=== PATIENT | female | born 1945 | race Caucasian/White ===

== ENCOUNTER → 2016-09-13 | Outpatient (CLI) | payer MEDICARE ==
[~2016-09-13] VITALS: Ht 172.7 cm; Wt 110.3 kg
[~2016-09-13] MED LIST: ALBU8.5H4 IH; AMLO5TAB2 GT; AMLO5TAB2 PO; ASP325TEC PO; ASP81TEC PO; CCLB10TRX PO; CHOL500019 PO; EZET10TA5 PO; FLC1T PO; FOLI1TAB24 PO; FOLIC ACID PO; GLUC-113 PO; GUAI600T43 PO; HYDR-34 PO; HYDR-3714 PO; HYDR-3812 PO; HYDR118S10 PO; HYDR200T46 PO; LEVO750T39 PO; LORA10TA7 PO; METH2.5T PO; MTP25TSR PO; MTX2.5T PO; MULT-116 PO; OMEG1CAP51 PO; OSTEO BIFLEX PO; PRED10TA22 PO; TRIA1CAP4 PO; VIT D PO; WARF-48 PO; WARF5TAB6 PO; WRF10T PO; WRF5T PO; ZOLEDRONATE 5 MG/100 ML (RECLAST) BTL IV ONE
[2016-09-13 14:30] VITALS: BP 133/71
== END ==
LOC: SDC 13:09
PROVIDERS: ATTEND Internal Medicine
DX: M81.0 Age-related osteoporosis without current pathological fracture (principal)
CPT/HCPCS: 96365

== ENCOUNTER → 2017-01-05 | Outpatient (CLI) | payer MEDICARE ==
[~2017-01-05] MED LIST changes: -MULT-116 PO; +MULT-324 PO; -ZOLEDRONATE 5 MG/100 ML (RECLAST) BTL IV ONE
--- NOTE | 2017-01-05 11:36 | Diagnostic Imaging Report ---
PROCEDURE: CT pelvis without contrast. TECHNIQUE: Multiple contiguous axial images were obtained through the pelvis without the use of intravenous contrast. Sagittal and coronal reformations were performed. INDICATION: Trauma. Possible fracture. FINDINGS: There is subacute nondisplaced fracture involving the right pubic body near its junction with the superior and inferior rami without displacement. There is no femoral head or neck fracture. There is no subluxation or dislocation at the hip joints. A degenerative changes at L5/S1 and at the SI joints is noted. There is also degenerative change at the pubic symphysis. There is a tiny fat-containing umbilical hernia seen. Hysterectomy changes are seen in the pelvis. IMPRESSION: There is a subacute nondisplaced right pubic body fracture. Dictated by: Dictated on workstation # [id number]
== END ==
LOC: RAD 10:33
PROVIDERS: ATTEND Internal Medicine
DX: S32.591A Other specified fracture of right pubis, initial encounter for closed fracture (principal); X58.XXXA Exposure to other specified factors, initial encounter; Y99.8 Other external cause status
CPT/HCPCS: 72192

== ENCOUNTER → 2017-09-08 | Outpatient (CLI) | payer MEDICARE ==
[~2017-09-08] MED LIST changes: +ACHD5005 PO; -HYDR-3812 PO
--- NOTE | 2017-09-08 16:31 | Diagnostic Imaging Report ---
EXAM: DEXA scan INDICATION: Screening for osteoporosis COMPARISON: This study was compared to the prior exam of 12/05/2014. The bone mineral density of the hips and spine was measured. The T score for the spine is 1.1. On the prior exam the T score was 0.5. The T score for the right femur is -1.8 and for the left femur -2.7. On the prior exam the respective scores were -2.0 and -2.6. IMPRESSION: There are mixed results. There has been an increase in the bone mineral density of the spine and the right hip but there has been a slight decrease in the bone mineral density of the left hip. The T score for the spine is within normal limits while the T score for the right hip indicates osteopenia. There is osteoporosis of the left hip. Dictated by: Dictated on workstation # [id number]
== END ==
LOC: RAD 10:50
PROVIDERS: ATTEND Internal Medicine
DX: Z13.820 Encounter for screening for osteoporosis (principal); M81.0 Age-related osteoporosis without current pathological fracture
CPT/HCPCS: 77080

== ENCOUNTER 2017-09-19 12:16 | Outpatient (CLI) | payer MEDICARE ==
[~2017-09-19] VITALS: Ht 172.7 cm; Wt 110.3 kg
[2017-09-19] MEDS ORDERED: ZOLEDRONATE 5 MG/100 ML (RECLAST) BTL IV ONE (12:45)
[2017-09-19 13:20] VITALS: BP 139/71
== END 2017-09-19 13:20 | disposition home or self-care (01) ==
LOC: SDC 12:16
PROVIDERS: ATTEND Internal Medicine
DX: M81.0 Age-related osteoporosis without current pathological fracture (principal)
CPT/HCPCS: 96365

== ENCOUNTER 2018-10-27 13:08 | Outpatient (CLI) | payer MEDICARE ==
[~2018-10-27] VITALS: Ht 172.7 cm; Wt 110.3 kg
[~2018-10-27 13:08] MED LIST changes: +AMLO5TAB9 PO; -METH2.5T PO; -MULT-324 PO; +MULT-834 PO
[2018-10-27] MEDS ORDERED: ZOLEDRONATE (NON-FORMULARY) 100 ML IV ONE (13:30)
[2018-10-27 13:35] VITALS: BP 135/60
== END 2018-10-27 14:10 | disposition home or self-care (01) ==
LOC: SDC 13:08
PROVIDERS: ATTEND Internal Medicine
DX: M81.0 Age-related osteoporosis without current pathological fracture (principal)
CPT/HCPCS: 96365

== ENCOUNTER 2019-10-15 15:54 | Emergency (ER) | payer MEDICARE ==
[~2019-10-15] VITALS: Ht 172.7 cm; Wt 113.4 kg
--- NOTE | 2019-10-15 16:09 | ED Fall/Injury ---
General Stated Complaint: FALL Source: patient History of Present Illness Date Seen by Provider: Oct 15, 2019 Time Seen by Provider: 15:59 Initial Comments PT ARRIVES VIA EMS FROM HOME IN [facility] PT STATES SHE STARTED TO SIT DOWN IN HER WHEELCHAIR AND THE CHAIR SLIPPED AND SHE LANDED ON THE FLOOR, TRIED TO CATCH HERSELF WITH HER OUTSTRETCHED HANDS AND INJURED HER LEFT WRIST THIS OCCURRED AT 1500 STATES HER RIGHT HIP WAS ALSO HURTING, BUT ON EMS ARRIVAL AT THE SCENE, HIP WAS NO LONGER HURTING AND PT WAS ABLE TO STAND ON HER OWN WITHOUT DIFFICULTY DID NOT HIT HEAD AND NO LOSS OF CONSCIOUSNESS NO NECK OR BACK PAIN NO PARESTHESIAS OR MOTOR DEFICITS EMS GAVE FENTANYL 50 MCG EN ROUTE, WITH MUCH IMPROVEMENT IN PAIN PT IS RIGHT HANDED NO PRIOR INJURIES TO THIS HAND/WRIST/ARM PT STATES A FEW YEARS AGO SHE INJURED HER BACK AND BROKE 4 VERTEBRAE AND HAS HAD DIFFICULTY WALKING ANY DISTANCE OR STANDING FOR ANY LENGTH OF TIME, SO USES A WHEELCHAIR AT TIMES. PT IS ON COUMADIN--PT NOT SURE WHY, BUT POSSIBLY FOR PERIPHERAL VASCULAR DISEASE ? PCP: ORTHOPEDIC SURGEON: DR. LUIS--HAS HAD BILATERAL CARPAL TUNNEL SURGERY AND IS S EEING HIM FOR HER CHRONIC KNEE PAIN Allergies and Home Medications Allergies Coded Allergies: Penicillins (Verified Allergy, Unknown, 03/23/13) Ewjlwdy-Hcm-Hli Reductase Inhibitor (Verified Allergy, Unknown, 03/23/13) JOINT PAIN clopidogrel bisulfate (Verified Allergy, Unknown, 03/23/13) codeine (Verified Allergy, Unknown, 09/14/11) diazepam (Unverified Allergy, Unknown, 01/13/15) monosodium glutamate (Unverified Allergy, Unknown, 01/15/15) FROM UNCODED ALLERGIES morphine (Verified Allergy, Unknown, 09/14/11) Home Medications Albuterol Sulfate 8.5 Gm Hfa.aer.ad, 8.5 GM IH Q4H Prescribed by: TALITA FRANZ on 01/17/15 0842 Amlodipine Besylate 5 Mg Tablet, 5 MG PO DAILY, (Reported) Aspirin 81 Mg Tabec, 81 MG PO DAILY, (Reported) Cholecalciferol (Vitamin D3) 50,000 Unit Capsule, 50,000 UNIT PO WEEKLY, (Reported) Folic Acid 1 Mg Tablet, 1 MG PO DAILY, (Reported) Gluc 2KCL/Chondr/Villa Hy/Hy Ac 1 Each Capsule, 1 CAP PO DAILY, (Reported) Guaifenesin 600 Mg Tab.er.12h, 600 MG PO BID Prescribed by: TALITA FRANZ on 01/17/15841 Hydrocodone Bit/Acetaminophen 1 Each Tablet, 1 TAB PO Q6H PRN for PAIN, (Reported) Hydroxychloroquine Sulfate 200 Mg Tablet, 200 MG PO BID, (Reported) Levofloxacin 750 Mg Tablet, 750 MG PO DAILY@11 Prescribed by: TALITA FRANZ on 01/17/15841 Loratadine 10 Mg Tablet, 10 MG PO DAILY, (Reported) Multivitamin 1 Each Tablet, 1 TAB PO DAILY, (Reported) [place]-3 Fatty Acids/Fish Oil 1 Each Capsule, 1 CAP PO BID, (Reported) Prednisone 10 Mg Tab.ds.pk, 10 MG PO UD Prescribed by: TALITA FRANZ on 01/17/15841 Triamterene/Hydrochlorothiazid 1 Each Capsule, 1 TAB PO DAILY, (Reported) Patient Home Medication List Home Medication List Reviewed: Yes Review of Systems Review of Systems Constitutional: no symptoms reported Respiratory: no symptoms reported Cardiovascular: no symptoms reported Gastrointestinal: no symptoms reported Genitourinary: no symptoms reported Musculoskeletal: see HPI Skin: no symptoms reported Psychiatric/Neurological: No Symptoms Reported Past Wzxrcuy-Purcqj-Xisrpy Hx Past Med/Social Hx: Reviewed and Corrections made Patient Social History Recent Foreign Travel: No Contact w/Someone Who Travel: No Recent Hopitalizations: No Immunizations Up To Date Tetanus Booster (TDap): Less than 5yrs PED Vaccines UTD: No Date of Pneumonia Vaccine: Jan 09, 2013 Past Medical History Surgeries: Yes (TOE AMPTUATION;BILATERAL CARPAL TUNNEL) Amputation, Gallbladder, Hysterectomy, Orthopedic, Tonsillectomy Respiratory: Yes Asthma, COPD Currently Using CPAP: No Currently Using BIPAP: No Cardiac: Yes High Cholesterol, Hypertension, Peripheral Vascular Neurological: No Reproductive Disorders: No Female Reproductive Disorders: Denies Sexually Transmitted Disease: No HIV/AIDS: No Genitourinary: No Gastrointestinal: Yes Gall Bladder Disease Musculoskeletal: Yes (TOE AMPUTATION; 4 VERTEBRAL FX'S-NO SURGERY;BILAT CARPAL TUNNEL; KNEE PAIN ) Osteoporosis, Arthritis, Fibromyalgia, Back Injury, Chronic Back Pain, Fractures Endocrine: Yes (MORBID OBESITY) Loss of Vision: Denies Hearing Impairment: Denies Adverse Reaction/Blood Tranf: No Family Medical History Arthritis 19 FATHER 19 MOTHER G8 BROTHER G8 BROTHER G8 BROTHER G8 BROTHER G8 BROTHER G8 SISTER G8 SISTER Bone cancer G8 BROTHER Cardiovascular disease 19 FATHER G8 BROTHER G8 BROTHER G8 BROTHER G8 BROTHER G8 BROTHER Diabetes mellitus G8 BROTHER Hypertension 19 FATHER 19 MOTHER G8 BROTHER G8 BROTHER G8 BROTHER G8 BROTHER G8 BROTHER G8 SISTER G8 SISTER Myocardial infarction G8 BROTHER G8 BROTHER Physical Exam Vital Signs Vital Signs - First Documented 10/15/19 16:00 Temp 36.7 Pulse 82 Resp 18 B/P (MAP) 117/76 (90) Pulse Ox 96 O2 Delivery Nasal Cannula O2 Flow Rate 2.00 Capillary Refill : Height, Weight, BMI Height: 5'8.00" Weight: 243lbs. 2.0oz. [id number]; 37.0 BMI Method:Stated General Appearance: no apparent distress, obese, other (SMILING, LAUGHING, TALK ING NON-STOP ABOUT VARIOUS THINGS, AND NOT TALKING AT ALL ABOUT HER INJURY OR PAIN ) HEENT: PERRL/EOMI Neck: non-tender Cardiovascular: normal peripheral pulses, regular rate, rhythm, no murmur Respiratory: normal breath sounds Gastrointestinal: soft Back: no CVA tenderness, no vertebral tenderness Extremities: normal capillary refill, other (LEFT WRIST TENDERNESS, SWELLING AND DEFORMITY; DISTAL MOTOR/SENSORY/VASCULAR INTACT. ) Neurologic/Psychiatric: no motor/sensory deficits, alert, normal mood/affect, oriented x 3 Skin: normal color, warm/dry Procedures/Interventions Splinting and Joint Reduction : Pre-Proc Neuro Vasc Exam: normal Post-Proc Neuro Vasc Exam: normal Arm Sling: [place] Hand-Made Type: orthoglass Splint Application: Short Arm Progress/Results/Core Measures Results/Orders Lab Results Laboratory Tests Test 10/15/19 16:15 Range/Units White Blood Count 8.0 4.3-11.0 10^3/uL Red Blood Count 3.93 L 4.35-5.85 10^6/uL Hemoglobin 12.5 11.5-16.0 G/DL Hematocrit 40 35-52 % Mean Corpuscular Volume 101 H 80-99 FL Mean Corpuscular Hemoglobin 32 25-34 PG Mean Corpuscular Hemoglobin Concent 32 32-36 G/DL Red Cell Distribution Width 15.1 H 10.0-14.5 % Platelet Count 221 130-400 10^3/uL Mean Platelet Volume 10.1 7.4-10.4 FL Neutrophils (%) (Auto) 70 42-75 % Lymphocytes (%) (Auto) 16 12-44 % Monocytes (%) (Auto) 10 0-12 % Eosinophils (%) (Auto) 4 0-10 % Basophils (%) (Auto) 0 0-10 % Neutrophils # (Auto) 5.6 1.8-7.8 X 10^3 Lymphocytes # (Auto) 1.2 1.0-4.0 X 10^3 Monocytes # (Auto) 0.8 0.0-1.0 X 10^3 Eosinophils # (Auto) 0.3 0.0-0.3 10^3/uL Basophils # (Auto) 0.0 0.0-0.1 10^3/uL Prothrombin Time 34.1 H 12.2-14.7 SEC INR Comment 3.3 H 0.8-1.4 Activated Partial Thromboplast Time 34 24-35 SEC Sodium Level 138 135-145 MMOL/L Potassium Level 4.2 3.6-5.0 MMOL/L Chloride Level 105 98-107 MMOL/L Carbon Dioxide Level 25 21-32 MMOL/L Anion Gap 8 5-14 MMOL/L Blood Urea Nitrogen 22 H 7-18 MG/DL Creatinine 1.05 0.60-1.30 MG/DL Estimat Glomerular Filtration Rate 51 BUN/Creatinine Ratio 21 Glucose Level 123 H 70-105 MG/DL Calcium Level 9.1 8.5-10.1 MG/DL Corrected Calcium 9.4 8.5-10.1 MG/DL Total Bilirubin 0.4 0.1-1.0 MG/DL Aspartate Amino Transf (AST/SGOT) 20 5-34 U/L Alanine Aminotransferase (ALT/SGPT) 23 0-55 U/L Alkaline Phosphatase 54 40-136 U/L Total Protein 6.2 L 6.4-8.2 GM/DL Albumin 3.6 3.2-4.5 GM/DL My Orders Orders - JORJE BENÍTEZ DO Ed Iv/Invasive Line Start (10/15/19 16:06) Monitor-Rhythm Ecg Trace Only (10/15/19 16:06) Forearm, Left, 2 Views (7/6/20 16:06) Wrist, Left, 3 Views Or More (10/15/19 16:06) Pelvis With Right Hip 2-3views (10/15/19 16:06) Cbc With Automated Diff (10/15/19 16:06) Comprehensive Metabolic Panel (10/15/19 16:06) Protime With Inr (10/15/19 16:06) Partial Thromboplastin Time (10/15/19 16:06) Fentanyl Injection (Sublimaze Injection (10/15/19 16:57) Ed Ortho/Other Supplies Order (10/15/19 17:11) Ed Iv/Invasive Line Start (10/15/19 18:10) Ns Iv 1000 Ml (Sodium Chloride 0.9%) (10/15/19 18:10) Fentanyl Injection (Sublimaze Injection (10/15/19 18:10) Hydromorphone Injection (Dilaudid Inject (10/15/19 20:08) Medications Given in ED Current Medications Medications Dose Ordered Sig/Sandro Route Start Time Stop Time Status Last Admin Dose Admin Hydromorphone HCl 2 mg STK-MED ONCE .ROUTE 10/15/19 20:08 10/15/19 20:11 DC 10/15/19 20:18 2 MG Vital Signs/I&O 10/15/19 10/15/19 16:00 20:19 Temp 36.7 Pulse 82 80 Resp 18 18 B/P (MAP) 117/76 (90) 142/68 Pulse Ox 96 95 O2 Delivery Nasal Cannula Room Air O2 Flow Rate 2.00 10/16/19 00:00 Intake Total 1000 ml Balance 1000 ml Progress Progress Note : Progress Note PAIN MUCH IMPROVED WITH FENTANYL Diagnostic Imaging Comments XRAYS LEFT WRIST AND FOREARM-- FINDINGS: There is a markedly comminuted intra-articular fracture of the distal left radius with posterior and lateral displacement of the principle fragments. There appears to be a bone gap of the articular surface measuring up to 6 mm in width. There is mild impaction, and moderate dorsal angulation. There is also a mildly impacted, comminuted fracture of the distal left ulna, with small avulsion fragments noted as well. The ulnar fracture demonstrates dorsal displacement and angulation. There is moderate lateral subluxation of the carpus relative to the radius and ulna. There are severe end-stage degenerative changes at the basal joints of the thumb with a large chronic joint body seen radial to the first carpometacarpal joint. This measures 1.4 cm in diameter. There is diffuse osteopenia. There is marked surrounding soft tissue edema. IMPRESSION: 1. Comminuted, displaced, angulated intra-articular fractures of the distal left radius and ulna. 2. Severe degenerative changes at the basal joints of the thumb. XRAYS PELVIS AND LEFT HIP--NO ACUTE BONY INJURY PER RADIOLOGIST REPORTS AT 1740 Reviewed: Reviewed by Me Departure Communication (Admissions) Family Conversation 1814--SPOKE WITH PT'S DAUGHTER AND UPDATED HER ON PT'S CONDITION, WILL CALL HER BACK WITH DETAILS ON TRANSPORTATION HAS BEEN ARRANGED 1656--CALLED DR. LUIS, MESSAGE LEFT ON CELL 1703--SPOKE WITH DR. LUIS, HE HAS REVIEWED PT'S XRAYS AND ADVISES TO SEND TO HAND SURGEON DUE TO COMPLEXITY OF THE INJURY 1706--CALLED [facility] HAND SURGEON, DR. SUAZO. CLOUDING IMAGES TO RIZZO 1709--SPOKE WITH DR. SUAZO. WOULD LIKE PICTURES OF XRAYS TEXTED TO HIM AND HE WILL CALL ME BACK 1721--SPOKE WITH DR. SUAZO, HE ADVISES THAT PT NEEDS TO GO TO , DUE TO COMPLEXITY OF THE INJURY. 1724--CALLED . IMAGES HAVE BEEN CLOUDED TO . THEY WILL CONTACT HAND SURGEON AND WILL CALL ME BACK AFTER HE HAS REVIEWED THE IMAGES. 1805--RONALDO CALLED BACK. DR. PENNY, ORTHOPEDIC SURGEON, HAS REVIEWED FILMS AND WOULD LIKE PT TO BE TRANSFERRED TO ER [facility]. 1809--[facility] HAS BEEN DISPATCHED FOR TRANSFER. NOT AVAILABLE UNTIL SOMETIME AFTER MIDNIGHT. OTHER LOCAL EMS SERVICES BEING CONTACTED AT THIS TIME 1830--[facility] WILL BE ABLE TO TRANSPORT PT AND WILL BE HERE SHORTLY. Impression Primary Impression: S/P FALL FROM STANDING Additional Impressions: COMMINUTED DISPLACED LEFT RADIUS AND ULNAR FRACTURES Contusion of right hip Disposition: XFER SHT-TRM HOSP Condition: Improved Transfer Transfer Reason: Exceeds level of care Transfer Facility: Method of Transfer: EMS Departure-Patient Inst. Referrals: TALITA FRANZ DO (PCP/Family) Primary Care Physician JORJE BENÍTEZ DO Oct 15, 2019 16:09
[2019-10-15 16:27] LABS: BASOPHILS % (AUTO) 0 % (0-10); EOSINOPHILS # (AUTO) 0.3 10^3/uL (0.0-0.3); EOSINOPHILS % (AUTO) 4 % (0-10); HEMATOCRIT 40 % (35-52); HEMOGLOBIN 12.5 G/DL (11.5-16.0); LYMPHOCYTES # (AUTO) 1.2 X 10^3 (1.0-4.0); LYMPHOCYTES % (AUTO) 16 % (12-44); MEAN CORPUSCULAR HEMOGLOBIN 32 PG (25-34); MEAN CORPUSCULAR HGB CONC 32 G/DL (32-36); MEAN CORPUSCULAR VOLUME 101 FL (80-99); MEAN PLATELET VOLUME 10.1 FL (7.4-10.4); MONOCYTES # (AUTO) 0.8 X 10^3 (0.0-1.0); MONOCYTES % (AUTO) 10 % (0-12); NEUTROPHILS # (AUTO) 5.6 X 10^3 (1.8-7.8); NEUTROPHILS % (AUTO) 70 % (42-75); PLATELET COUNT 221 10^3/uL (130-400); RED CELL DISTRIBUTION WIDTH 15.1 % (10.0-14.5)
[2019-10-15 16:38] LABS: ALBUMIN 3.6 GM/DL (3.2-4.5); POTASSIUM 4.2 MMOL/L (3.6-5.0)
[2019-10-15 16:39] LABS: CALCIUM 9.1 MG/DL (8.5-10.1)
[2019-10-15 16:40] LABS: TOTAL PROTEIN 6.2 GM/DL (6.4-8.2)
[2019-10-15 16:42] LABS: BILIRUBIN,TOTAL 0.4 MG/DL (0.1-1.0)
[2019-10-15 16:44] LABS: CREATININE SERUM 1.05 MG/DL (0.60-1.30)
[2019-10-15] MEDS ORDERED: fentaNYL INJECTION 100 MCG/2 ML AMP IVP STA ×2 (16:57→18:10)
[2019-10-15 16:58] LABS: INR 3.3 (0.8-1.4); PROTHROMBIN TIME PATIENT 34.1 SEC (12.2-14.7)
--- NOTE | 2019-10-15 17:13 | Diagnostic Imaging Report ---
HISTORY: Fall, left wrist fracture. TECHNIQUE: Three views of the left wrist. COMPARISON: None. FINDINGS: There is a markedly comminuted intra-articular fracture of the distal left radius with posterior and lateral displacement of the principle fragments. There appears to be a bone gap of the articular surface measuring up to 6 mm in width. There is mild impaction, and moderate dorsal angulation. There is also a mildly impacted, comminuted fracture of the distal left ulna, with small avulsion fragments noted as well. The ulnar fracture demonstrates dorsal displacement and angulation. There is moderate lateral subluxation of the carpus relative to the radius and ulna. There are severe end-stage degenerative changes at the basal joints of the thumb with a large chronic joint body seen radial to the first carpometacarpal joint. This measures 1.4 cm in diameter. There is diffuse osteopenia. There is marked surrounding soft tissue edema. IMPRESSION: 1. Comminuted, displaced, angulated intra-articular fractures of the distal left radius and ulna. 2. Severe degenerative changes at the basal joints of the thumb. Dictated by: Dictated on workstation # [id number]
--- NOTE | 2019-10-15 17:16 | Diagnostic Imaging Report ---
INDICATION: Pelvic pain post fall. EXAMINATION: AP pelvis and AP and oblique views of the right hip are obtained. FINDINGS: No acute fracture or acute bony abnormality is seen. There are vascular calcifications noted. There are mild degenerative findings of both hips. IMPRESSION: No acute bony abnormality in the pelvis. Dictated by: Dictated on workstation # [id number]
--- NOTE | 2019-10-15 17:19 | Diagnostic Imaging Report ---
INDICATION: Injury to left forearm. EXAMINATION: AP and lateral views of left forearm are obtained at 04:45 p.m. FINDINGS: There are comminuted fractures to the distal radius and ulna with intra-articular extension to the wrist joint. The proximal portions of the radius and ulna appear to be intact. IMPRESSION: Comminuted distal radial and ulnar fractures with intra-articular extension and some displacement. Proximal portions of the radius and ulna appear intact. Dictated by: Dictated on workstation # [id number]
[2019-10-15] MEDS ORDERED: NS IV 1000 ML 1,000 ML IV SCH (18:10)
[2019-10-15] MEDS ORDERED: HYDROmorphone 2 MG/ML VIAL (DILAUDID) ONE (20:08)
[2019-10-15 20:19] VITALS: BP 142/68
== END 2019-10-15 20:30 | disposition short-term general hospital (02) ==
LOC: EDUNIT# 15:54 → ER 16:01
DX: S52.572A Other intraarticular fracture of lower end of left radius, initial encounter for closed fracture (principal); S52.602A Unspecified fracture of lower end of left ulna, initial encounter for closed fracture; S70.01XA Contusion of right hip, initial encounter; W18.39XA Other fall on same level, initial encounter; Z79.01 Long term (current) use of anticoagulants; Z88.0 Allergy status to penicillin; Z88.8 Allergy status to other drugs, medicaments and biological substances; Z88.5 Allergy status to narcotic agent; Z79.82 Long term (current) use of aspirin; Z79.899 Other long term (current) drug therapy; E78.00 Pure hypercholesterolemia, unspecified; I10 Essential (primary) hypertension; I73.9 Peripheral vascular disease, unspecified; M81.0 Age-related osteoporosis without current pathological fracture; M19.90 Unspecified osteoarthritis, unspecified site; M79.10 Myalgia, unspecified site; M54.9 Dorsalgia, unspecified; E66.01 Morbid (severe) obesity due to excess calories; M25.569 Pain in unspecified knee; Z68.38 Body mass index [BMI] 38.0-38.9, adult
CPT/HCPCS: 36415; 73090; 73110; 80053; 85025; 85610; 85730; 93041

== ENCOUNTER 2019-12-10 10:20 | Outpatient (CLI) | payer MEDICARE ==
[~2019-12-10] VITALS: Ht 160 cm
[2019-12-10] MEDS ORDERED: ZOLEDRONATE (NON-FORMULARY) 100 ML IV ONE (10:45)
[2019-12-10 11:05] VITALS: BP 151/85
== END 2019-12-10 11:05 | disposition home or self-care (01) ==
LOC: SDC 10:20
PROVIDERS: ATTEND Internal Medicine
DX: M81.0 Age-related osteoporosis without current pathological fracture (principal)
CPT/HCPCS: 96365

== ENCOUNTER → 2021-10-07 | Outpatient (CLI) | payer MEDICARE ==
[~2021-10-07] MED LIST changes: +AMLO-250 PO; -AMLO5TAB9 PO; -FOLI1TAB24 PO; +FOLI1TAB33 PO; +TRIA1CAP84 PO; +ZOLEDRONATE (NON-FORMULARY) 100 ML IV ONE
[2021-10-07 10:30] VITALS: BP 153/75
== END ==
LOC: SDC 10:30
PROVIDERS: ATTEND Internal Medicine
DX: M81.0 Age-related osteoporosis without current pathological fracture (principal)
CPT/HCPCS: 96365

== ENCOUNTER 2022-04-05 00:35 | Inpatient (IN) | payer MEDICARE ==
[~2022-04-05] VITALS: Ht 172 cm; Wt 117.7 kg
[~2022-04-05 00:35] MED LIST changes: +LEVO750T PO; -LEVO750T39 PO; -ZOLEDRONATE (NON-FORMULARY) 100 ML IV ONE
--- NOTE | 2022-04-05 00:44 | Progress Note ---
Progress Note Stacia Felipe is a 77 year old female who presented to the [place] ER with acute on chronic respiratory failure with hypoxia. She normally wears oxygen at night only but has been wearing it during the day recently. Her was reportedly flu and COVID positive. She was reportedly treated with both Tamiflu and Paxlovid prophylactically as an outpatient. She tested positive for COVID on arrival to [place]. She was requiring BiPAP. Her chest xray showed central vascular congestion. She was given Lasix and Solumedrol. She was given a dose of Cefepime. She is on coumadin chronically for peripheral arterial disease. Her INR was >10. She was given a dose of vitamin K 2.5 mg. There was no evidence of acute bleeding. She had a negative d-dimer. Her creatinine was 0.97. She is a FULL CODE. She will be transferred to [facility] to the ICU . YAMILET CORTES MD Apr 05, 2022 00:44
[2022-04-05 01:50] VITALS: BP 124/101
[2022-04-05] MEDS ORDERED: LACTULOSE SYRUP 10GM/15ML (ENULOSE) 30ML UDC PO PRN (02:15)
[2022-04-05] MEDS ORDERED: ONDANSETRON 4 MG (ZOFRAN) ORAL DISSOLVE TAB PO PRN (02:15)
[2022-04-05] MEDS ORDERED: MILK OF MAGNESIA 400 MG/5 ML 30 ML UDC PO PRN (02:15)
[2022-04-05] MEDS ORDERED: polyethylene glycoL POWDER 17 GM (MIRALAX) PACK PO PRN (02:15)
[2022-04-05] MEDS ORDERED: ANTACID SUSP 30 ML UDC (MYLANTA) PO PRN (02:15)
[2022-04-05] MEDS ORDERED: NS IV 500 ML 500 ML IV PRN (02:15)
[2022-04-05] MEDS ORDERED: BISACODYL 10 MG SUPP (DULCOLAX) PR PRN (02:15)
[2022-04-05] MEDS ORDERED: CALCIUM CARBONATE 500 MG (TUMS) TAB.CHEW PO PRN (02:15)
[2022-04-05] MEDS ORDERED: ONDANSETRON 4 MG/2 ML (SDV) Z0FRAN IV PRN (02:15)
[2022-04-05] MEDS ORDERED: RT-ALBUTEROL HFA 8.5 GM INHALER IH PRN (02:45)
[2022-04-05] MEDS: dilTIAZem DRIP PRE-MIX 125 ML IV SCH ×2 (02:53→02:57)
[2022-04-05 03:41] LABS: BASOPHILS % (AUTO) 0 % (0-10); EOSINOPHILS % (AUTO) 0 % (0-10); HEMATOCRIT 32 % (35-52); HEMOGLOBIN 10.5 g/dL (11.5-16.0); LYMPHOCYTES # (AUTO) 0.4 10^3/uL (1.0-4.0); LYMPHOCYTES % (AUTO) 2 % (12-44); MEAN CORPUSCULAR HEMOGLOBIN 32 pg (25-34); MEAN CORPUSCULAR HGB CONC 32 g/dL (32-36); MEAN CORPUSCULAR VOLUME 98 fL (80-99); MEAN PLATELET VOLUME 9.7 fL (9.0-12.2); MONOCYTES # (AUTO) 0.4 10^3/uL (0.0-1.0); MONOCYTES % (AUTO) 3 % (0-12); NEUTROPHILS # (AUTO) 14.6 10^3/uL (1.8-7.8); NEUTROPHILS % (AUTO) 95 % (42-75); PLATELET COUNT 267 10^3/uL (130-400); WHITE BLOOD COUNT 15.4 10^3/uL (4.3-11.0)
[2022-04-05 03:59] LABS: LYMPHOCYTES % (MANUAL) 5 %; MONOCYTES % (MANUAL) 4 %; NEUTROPHILS % (MANUAL) 91 %; RBC MORPH NORMAL
[2022-04-05 04:02] LABS: ALBUMIN 3.3 GM/DL (3.2-4.5); BILIRUBIN,TOTAL 0.6 MG/DL (0.1-1.0); CALCIUM 8.5 MG/DL (8.5-10.1); CREATININE SERUM 0.94 MG/DL (0.60-1.30); PHOSPHORUS 2.6 MG/DL (2.3-4.7); POTASSIUM 4.6 MMOL/L (3.6-5.0); TOTAL PROTEIN 5.8 GM/DL (6.4-8.2)
[2022-04-05] MEDS: MAGNESIUM 1 GM/100 ML IVPB 100 ML IV SCH (04:10)
[2022-04-05] MEDS: POTASSIUM CL 10MEQ/50ML IVPB 50 ML IV SCH (04:10)
[2022-04-05] MEDS: KCL 20 MEQ TAB (K-DUR) PO SCH (04:11)
[2022-04-05 04:25] LABS: PROTHROMBIN TIME PATIENT 105.5 SEC (12.2-14.7)
[2022-04-05 04:26] LABS: INR 14.8 (0.8-1.4)
[2022-04-05] MEDS: CEFEPIME INJECTION 1,000 MG in NS (IVPB) 50 ML IV SCH ×4 (05:36→23:48)
[2022-04-05 06:09] LABS: ABG BASE EXCESS -0.2 MMOL/L (-2.5-2.5); ABG OXYGEN SATURATION 98 % (94-100); ABG PCO2 42 MMHG (35-45); ABG PH 7.38 (7.37-7.43); ABG PO2 92 MMHG (79-93); ABG TCO2 25.7 MMOL/L (21.0-31.0)
[2022-04-05 06:13] LABS: ALLENS TEST YES-POS; INSPIRED O2 50% BIPAP; PATIENT TEMP 36.6; VENTILATOR NO
[2022-04-05 07:10] VITALS: BP 140/102
--- NOTE | 2022-04-05 08:36 | Diagnostic Imaging Report ---
INDICATION: Respiratory failure Portable chest 6:31 AM There is diffuse interstitial infiltrates throughout the lungs with some patchy areas of alveolar consolidation. There is no appreciable effusion. IMPRESSION: Diffuse pulmonary infiltrates most likely represent pneumonia. Pulmonary edema cannot entirely be excluded. Dictated by: Dictated on workstation # [id number]
--- NOTE | 2022-04-05 08:57 | History & Physical ---
ELMA PEACOCK 04/05/22 0857: History of Present Illness History of Present Illness Reason for visit/HPI Ms. Marion is a 77 year old female with a PMHx of HTN, arthritis, and PAD with Coumadin therapy who presents with acute on chronic respiratory failure with hypoxia and is COVID positive. The patient presented to [facility] ED with SOA. Patient reports 2-3 wks ago she was diagnosed with pneumonia and received antibiotic therapy in an outpatient setting. Patient states she progressively declined in the past 2-3 weeks with increased SOA with exertion and general malaise. Patient states she was not able to get a breath in last night which resulted in her coming to the ED. Patient reports associated symptoms of cough, sore throat, and weakness. Patient denies chills, chest pain, abdominal pain, nausea, vomiting, diarrhea, or constipation. [facility], the patient was placed on BiPap and received Vitamin K 2.5mg for an INR of >10, Lasix and Solumedrol for CXR findings of central vascular congestion, and was initiated on cefepime therapy. Patient states her last dose of Coumadin was in the evening of 04/04. Date of Admission Apr 05, 2022 at 01:39 Date Seen by a Provider: Apr 05, 2022 Time Seen by a Provider: 08:20 I consulted on this patient on 04/05/22 08:46 Attending Physician Marquez Pantoja DO Admitting Physician Admitting Physician: Yamilet Cortes MD Attending Physician: Michaelle Bhatia MD Consult Allergies and Home Medications Allergies Coded Allergies: Penicillins (Verified Allergy, Unknown, 03/23/13) Agfoeri-Inc-Ovx Reductase Inhibitor (Verified Allergy, Unknown, 03/23/13) JOINT PAIN clopidogrel bisulfate (Verified Allergy, Unknown, 03/23/13) codeine (Verified Allergy, Unknown, 09/14/11) diazepam (Unverified Allergy, Unknown, 01/13/15) monosodium glutamate (Unverified Allergy, Unknown, 01/15/15) FROM UNCODED ALLERGIES morphine (Verified Allergy, Unknown, 09/14/11) Patient Home Medication List Home Medication List Reviewed: Yes Albuterol Sulfate (Albuterol Sulfate Hfa) 8.5 Gm Hfa.aer.ad, 8.5 GM IH Q4H Prescribed by: MARQUEZ PANTOJA on 01/17/15 08 Amlodipine Besylate (Amlodipine Besylate) 5 Mg Tablet, 5 MG PO DAILY, (Reported) Entered as Reported by: ERIK SANCHEZ on 01/13/151709 Aspirin (Aspirin Ec 81 Mg) 81 Mg Tabec, 81 MG PO DAILY, (Reported) Entered as Reported by: BHAVESH MENDIETA on 02/23/11 1344 Cholecalciferol (Vitamin D3) (Vitamin D3) 50,000 Unit Capsule, 50,000 UNIT PO WEEKLY, (Reported) Entered as Reported by: ADELITA CUETO on 07/02/14 08 Folic Acid (Folic Acid) 1 Mg Tablet, 1 MG PO DAILY, (Reported) Entered as Reported by: ERIK SANCHEZ on 01/13/151709 Gluc 2KCL/Chondr/Villa Hy/Hy Ac (Glucosamine & Chondroitin Cap) 1 Each Capsule, 1 CAP PO DAILY, (Reported) Entered as Reported by: ADELITA CUETO on 03/23/13 09 Guaifenesin (Mucinex) 600 Mg Tab.er.12h, 600 MG PO BID Prescribed by: MARQUEZ PANTOJA on 01/17/15 08 Hydrocodone Bit/Acetaminophen (Lortab 5 Mg Tablet) 1 Each Tablet, 1 TAB PO Q6H PRN for PAIN, (Reported) Entered as Reported by: ERIK SANCHEZ on 01/13/151709 Hydroxychloroquine Sulfate (Hydroxychloroquine Sulfate) 200 Mg Tablet, 200 MG PO BID, (Reported) Entered as Reported by: ERIK SANCHEZ on 01/13/151709 Levofloxacin (Levofloxacin) 750 Mg Tablet, 750 MG PO DAILY@11 Prescribed by: MARQUEZ PANTOJA on 01/17/15 08 Loratadine (Loratadine) 10 Mg Tablet, 10 MG PO DAILY, (Reported) Entered as Reported by: ADELITA CUETO on 07/02/14 08 Multivitamin (One Daily) 1 Each Tablet, 1 TAB PO DAILY, (Reported) Entered as Reported by: ERIK SANCHEZ on 01/13/15 172 [place]-3 Fatty Acids/Fish Oil (Fish Oil 1,000 Mg Softgel) 1 Each Capsule, 1 CAP PO BID, (Reported) Entered as Reported by: ADELITA CUETO on 03/23/13 0923 Prednisone (Prednisone) 10 Mg Tab.ds.pk, 10 MG PO UD Prescribed by: MARQUEZ PANTOJA on 01/17/15 0842 Triamterene/Hydrochlorothiazid (Triamterene-Hctz 37.5-25 mg Cp) 1 Each Capsule, 1 TAB PO DAILY, (Reported) Entered as Reported by: ERIK SANCHEZ on 01/13/15 1710 Past Rgmible-Zwiuox-Bhncxf Hx Patient Social History Marrital Status: Tobacco Use?: No Substance use?: No Alcohol Use?: No Immunizations Up To Date Date of Influenza Vaccine: Jan 09, 2022 Hepatitis A: No Hepatitis B: No PED Vaccines UTD: No Date of Pneumonia Vaccine: Jan 09, 2013 Current Status status: No status: No Communicates: Verbally Primary Language: Turkmen Preferred Spoken Language: Turkmen Is interpretation needed?: No Past Medical History Surgeries: Amputation (R LE 5th digit), Gallbladder, Hysterectomy, Orthopedic (R UE), Tonsillectomy Asthma, COPD Currently Using CPAP: No Currently Using BIPAP: No High Cholesterol, Hypertension, Peripheral Vascular Sexually Transmitted Disease: No HIV/AIDS: No Gall Bladder Disease Osteoporosis, Arthritis, Fibromyalgia, Back Injury, Chronic Back Pain, Fractures Loss of Vision: Denies Hearing Impairment: Denies Blood Disorders: No Adverse Reaction/Blood Tranf: No Family Medical History Arthritis 19 FATHER 19 MOTHER G8 BROTHER G8 BROTHER G8 BROTHER G8 BROTHER G8 BROTHER G8 SISTER G8 SISTER Bone cancer G8 BROTHER Cardiovascular disease 19 FATHER G8 BROTHER G8 BROTHER G8 BROTHER G8 BROTHER G8 BROTHER Diabetes mellitus G8 BROTHER Hypertension 19 FATHER 19 MOTHER G8 BROTHER G8 BROTHER G8 BROTHER G8 BROTHER G8 BROTHER G8 SISTER G8 SISTER Myocardial infarction G8 BROTHER G8 BROTHER Heart Disease (father) Review of Systems Constitutional: malaise, weakness (LE weakness) EENTM: throat pain Respiratory: cough, dyspnea on exertion Cardiovascular: no symptoms reported; No chest pain, No palpitations Gastrointestinal: no symptoms reported; No abdominal pain, No constipation, No diarrhea, No nausea, No vomiting Genitourinary: no symptoms reported : No Musculoskeletal: joint pain (chronic) Skin: no symptoms reported Psychiatric/Neurological: No Symptoms Reported; Denies Headache All Other Systems Reviewed Negative Unless Noted: Yes Physical Exam Vital Signs Vital Signs - First Documented 04/05/22 04/05/22 01:50 02:00 Temp 36.6 Pulse 105 Resp 24 B/P (MAP) 144/100 (115) Pulse Ox 97 O2 Delivery NIV Bilevel O2 Flow Rate 50.00 FiO2 50 Capillary Refill : Height, Weight, BMI Height: 5'8.00" Weight: 243lbs. 2.0oz. 110.335897hi; 39.95 BMI Method:Stated General Appearance: No Apparent Distress (patient tolerating BiPap therapy well) Respiratory: No Accessory Muscle Use, Decreased Breath Sounds (bilaterally), Rhonci (bilateral), Wheezing (bilateral, more prominent on left ) Cardiovascular: Other (distant heart sounds, R LE +1 edema patient reports is chronic) Gastrointestinal: Normal Bowel Sounds, Non Tender, Soft Extremity: Other (R LE edema +1) Neurologic/Psychiatric: Alert, Normal Mood/Affect Skin: Normal Color, Warm/Dry Comments NAME: MARTY MARION [facility] REC#: [id number] PT STATUS: ADM IN : 1945 PHYSICIAN: YAMILET CORTES MD ADMIT DATE: 04/05/22/ICU Signed Date of Exam:04/05/22 CHEST 1 VIEW, AP/PA ONLY INDICATION: Respiratory failure Portable chest 6:31 AM There is diffuse interstitial infiltrates throughout the lungs with some patchy areas of alveolar consolidation. There is no appreciable effusion. IMPRESSION: Diffuse pulmonary infiltrates most likely represent pneumonia. Pulmonary edema cannot entirely be excluded. Dictated by: Dictated on workstation # [id number] Dict: 04/05/2227 Trans: 04/05/22 0859 [facility] [id number] Interpreted by: STACY SWEENEY MD Electronically signed by: STACY SWEENEY MD 04/05/22 085 Assessment/Plan Assessment and Plan 1. Acute respiratory failure with hypoxia, Pneumonia, COVID + -BiPap therapy - currently 50%. Continue and wean as tolerated -Albuterol breathing treatments - 4 puffs Q4H IH with RT -Decadron 6mg IV qd -Cefepime 1000mg - 50ml @ 100mls/hr Q6H IV for PNA -AM labs - CBC, BMP, INR 2. Atrial fibrillation vs. Heart failure -Continue telemetry and diltiazem therapy 125mg - 125ml @ 5mls/hr Q24h IV for rate control -Anti-coagulation for stroke prophylaxis - INR of 14.8. No anti-coagulation will be initiated at this time. Repeat INR this afternoon/evening. Patient is s/p Vitamin K 2.5mg therapy. Monitor Hbg with AM CBC/signs of bleeding -Echocardiogram - CXR findings of enlarged cardiac silhouette, BNP of 454.3 -Consult Cardiology 3. Protein nutrition deficiency with total protein of 5.8 on 04/05 -Protein dense diet as tolerated 4. Hyponatremia with Na of 132 on 04/05 -Monitor with AM BMP Admission Diagnosis Admission Status: Inpatient Order (span 2 midnights) Reason for Inpatient Admission: Acute respiratory failure with hypoxia, PNA, COVID positive Results Results/Procedures Labs Laboratory Tests 04/05/22 03:30 Patient resulted labs reviewed. MICHAELLE BHATIA MD 04/05/22 0909: Allergies and Home Medications Allergies Coded Allergies: Penicillins (Verified Allergy, Unknown, 03/23/13) Nkvvoli-Ded-Zxi Reductase Inhibitor (Verified Allergy, Unknown, 03/23/13) JOINT PAIN clopidogrel bisulfate (Verified Allergy, Unknown, 03/23/13) codeine (Verified Allergy, Unknown, 09/14/11) diazepam (Unverified Allergy, Unknown, 01/13/15) monosodium glutamate (Unverified Allergy, Unknown, 01/15/15) FROM UNCODED ALLERGIES morphine (Verified Allergy, Unknown, 09/14/11) Patient Home Medication List Albuterol Sulfate (Albuterol Sulfate Hfa) 8.5 Gm Hfa.aer.ad, 8.5 GM IH Q4H Prescribed by: MARQUEZ PANTOJA on 01/17/15 0842 Amlodipine Besylate (Amlodipine Besylate) 5 Mg Tablet, 5 MG PO DAILY, (Reported) Entered as Reported by: ERIK SANCHEZ on 01/13/15 1710 Aspirin (Aspirin Ec 81 Mg) 81 Mg Tabec, 81 MG PO DAILY, (Reported) Entered as Reported by: BHAVESH MENDIETA on 02/23/11 1344 Cholecalciferol (Vitamin D3) (Vitamin D3) 50,000 Unit Capsule, 50,000 UNIT PO WEEKLY, (Reported) Entered as Reported by: ADELITA CUETO on 07/02/14 0857 Folic Acid (Folic Acid) 1 Mg Tablet, 1 MG PO DAILY, (Reported) Entered as Reported by: ERIK SANCHEZ on 01/13/15 171 Gluc 2KCL/Chondr/Villa Hy/Hy Ac (Glucosamine & Chondroitin Cap) 1 Each Capsule, 1 CAP PO DAILY, (Reported) Entered as Reported by: ADELITA CUETO on 03/23/13 09 Guaifenesin (Mucinex) 600 Mg Tab.er.12h, 600 MG PO BID Prescribed by: MARQUEZ PANTOJA on 01/17/15 08 Hydrocodone Bit/Acetaminophen (Lortab 5 Mg Tablet) 1 Each Tablet, 1 TAB PO Q6H PRN for PAIN, (Reported) Entered as Reported by: ERIK SANCHEZ on 01/13/151709 Hydroxychloroquine Sulfate (Hydroxychloroquine Sulfate) 200 Mg Tablet, 200 MG PO BID, (Reported) Entered as Reported by: ERIK SANCHEZ on 01/13/151709 Levofloxacin (Levofloxacin) 750 Mg Tablet, 750 MG PO DAILY@11 Prescribed by: MARQUEZ PANTOJA on 01/17/15 08 Loratadine (Loratadine) 10 Mg Tablet, 10 MG PO DAILY, (Reported) Entered as Reported by: ADELITA CUETO on 07/02/14 08 Multivitamin (One Daily) 1 Each Tablet, 1 TAB PO DAILY, (Reported) Entered as Reported by: ERIK SANCHEZ on 01/13/15 172 [place]-3 Fatty Acids/Fish Oil (Fish Oil 1,000 Mg Softgel) 1 Each Capsule, 1 CAP PO BID, (Reported) Entered as Reported by: ADELITA CUETO on 03/23/13 09 Prednisone (Prednisone) 10 Mg Tab.ds.pk, 10 MG PO UD Prescribed by: MARQUEZ PANTOJA on 01/17/15 08 Triamterene/Hydrochlorothiazid (Triamterene-Hctz 37.5-25 mg Cp) 1 Each Capsule, 1 TAB PO DAILY, (Reported) Entered as Reported by: ERIK SANCHEZ on 01/13/15 171 Past Daarfuy-Ppdbgc-Opynoh Hx Family Medical History Arthritis 19 FATHER 19 MOTHER G8 BROTHER G8 BROTHER G8 BROTHER G8 BROTHER G8 BROTHER G8 SISTER G8 SISTER Bone cancer G8 BROTHER Cardiovascular disease 19 FATHER G8 BROTHER G8 BROTHER G8 BROTHER G8 BROTHER G8 BROTHER Diabetes mellitus G8 BROTHER Hypertension 19 FATHER 19 MOTHER G8 BROTHER G8 BROTHER G8 BROTHER G8 BROTHER G8 BROTHER G8 SISTER G8 SISTER Myocardial infarction G8 BROTHER G8 BROTHER Assessment/Plan Assessment and Plan Patient is 77-year-old female the past medical history of rheumatoid arthritis on chronic immunosuppressants, hypertension, peripheral artery disease who presented to the emergency department due to shortness of breath. She presented to [facility] ER last night with worsening respiratory distress and feeling as if she could not take a deep breath. She reports her had flu and COVID within the past week she was treated prophylactically with Tamiflu and Mulnupiravir. Despite this she continued to worsen. She does wear oxygen at night and had to start wearing it during the day as well. She also complains of sore throat and cough. She was placed on BiPAP in the ER and given Lasix for pulmonary edema. She was transferred here to the ICU. This morning she reports feeling much better and is requesting her BiPAP off. She denies any history of atrial fibrillation but is on warfarin chronically due to to her peripheral artery disease. We will continue Decadron for her COVID and consult cardiology for evaluation of new atrial fibrillation. Chest x-ray does show bilateral infiltrates so we will continue on cefepime given leukocytosis. We will check her INR in the morning as she has no evidence of active bleeding and received vitamin K in the middle of the night. echo ordered. Continue cardizem gtt. I discussed the case with Dr. Roberson, cardiology, who will see patient in consultation. Supervisory-Addendum Brief Verification & Attestation Participated in pt care: history, MDM, physical Personally performed: exam, history, MDM, supervision of care Care discussed with: Medical Student Procedures: n/a Results interpretation: Verified all documentation Verification and Attestation of Medical Student E/M Service A medical student performed and documented this service in my presence. I reviewed and verified all information documented by the medical student and made modifications to such information, when appropriate. I personally performed the physical exam and medical decision making. Michaelle Bhatia, Apr 05, 2022,09:04 Results Results/Procedures Labs Patient resulted labs reviewed. Imaging: Reviewed Imaging Report Imaging [facility] [place], [place] NAME: MARTY MARION [facility] REC#: [id number] PT STATUS: ADM IN : 1945 PHYSICIAN: YAMILET CORTES MD ADMIT DATE: 04/05/22/ICU Draft Date of Exam:04/05/22 CHEST 1 VIEW, AP/PA ONLY INDICATION: Respiratory failure Portable chest 6:31 AM There is diffuse interstitial infiltrates throughout the lungs with some patchy areas of alveolar consolidation. There is no appreciable effusion. IMPRESSION: Diffuse pulmonary infiltrates most likely represent pneumonia. Pulmonary edema cannot entirely be excluded. Dictated on workstation # [id number] Dict: 04/05/22826 Trans: 04/05/2236 [facility] [id number] Interpreted by: STACY SWEENEY MD Electronically signed by: ELMA PEACOCK Apr 05, 2022 08:57 MICHAELLE BHATIA MD Apr 05, 2022 09:09
[2022-04-05] MEDS: DOCUSATE SODIUM 100 MG (COLACE) CAP PO SCH ×2 (09:43→21:18)
[2022-04-05] MEDS: SENNOSIDES 8.6 MG (SENOKOT) TAB PO SCH ×2 (09:43→21:18)
--- NOTE | 2022-04-05 10:04 | Consultation-Cardiology ---
HPI-Cardiology Cardiology Consultation Date of Consultation 04/05/22 Date of Admission Time Seen by Provider: 09:59 Indication: Atrial fibrillation HPI 77-year-old lady with a history of hypertension, peripheral arterial disease, has been maintained on Coumadin therapy. She has underlying COPD. She was diagnosed about 2 to 3 weeks ago with pneumonia and received antibiotic therapy. Reported that her condition continued to decline with increasing dyspnea on exertion, her has tested positive for COVID. Had influenza. She was taking Tamiflu and Paxlovid. Had worsening shortness of breath and went to [facility] emergency room, she was in acute respiratory failure and responded to BiPAP treatment. She was noted to have Coumadin toxicity. She was in atrial fibrillation with rapid ventricular response. On my evaluation she was laying down in bed, maintained on BiPAP. Feeling better. Home Medications & Allergies Allergies: Coded Allergies: Penicillins (Verified Allergy, Unknown, 03/23/13) Tfpikkd-Xwd-Ryy Reductase Inhibitor (Verified Allergy, Unknown, 03/23/13) JOINT PAIN clopidogrel bisulfate (Verified Allergy, Unknown, 03/23/13) codeine (Verified Allergy, Unknown, 09/14/11) diazepam (Unverified Allergy, Unknown, 01/13/15) monosodium glutamate (Unverified Allergy, Unknown, 01/15/15) FROM UNCODED ALLERGIES morphine (Verified Allergy, Unknown, 09/14/11) Home Medication List Reviewed: Yes CTK-Cfqfet-Chkhwn Hx Patient Social History Marital Status: Employed/Student: retired Former smoker/When Quit: Jan 13, 2005 Recent Hopitalizations: No Have you traveled recently?: No Alcohol Use?: No Immunizations Up To Date Tetanus Booster (TDap): Less than 5yrs Date of Pneumonia Vaccine: Jan 09, 2013 Date of Influenza Vaccine: Jan 09, 2022 Past Medical History Discussed below Family Medical History Significant Family History: Heart Disease (father) Family History: 19 FATHER Arthritis Hypertension Cardiovascular disease 19 MOTHER Arthritis Hypertension G8 BROTHER Arthritis Diabetes mellitus Hypertension Cardiovascular disease Myocardial infarction G8 BROTHER Arthritis Hypertension Cardiovascular disease Myocardial infarction Bone cancer G8 BROTHER Arthritis Hypertension Cardiovascular disease G8 BROTHER Arthritis Hypertension Cardiovascular disease G8 BROTHER Arthritis Hypertension Cardiovascular disease G8 SISTER Arthritis Hypertension G8 SISTER Arthritis Hypertension Review of Systems-General Review of Systems Constitutional: malaise, weakness (LE weakness) EENTM: throat pain Respiratory: cough, dyspnea on exertion Cardiovascular: no symptoms reported; No chest pain, No palpitations Gastrointestinal: no symptoms reported; No abdominal pain, No constipation, No diarrhea, No nausea, No vomiting Genitourinary: no symptoms reported : No Musculoskeletal: joint pain (chronic) Skin: no symptoms reported Psychiatric/Neurological: No Symptoms Reported; Denies Headache All Other Systems Reviewed Negative Unless Noted: Yes Reviewed Test Results Reviewed Test Results Lab Laboratory Tests Test 04/05/22 03:30 04/05/22 03:43 04/05/22 06:00 Range/Units White Blood Count 15.4 H 4.3-11.0 10^3/uL Red Blood Count 3.32 L 3.80-5.11 10^6/uL Hemoglobin 10.5 L 11.5-16.0 g/dL Hematocrit 32 L 35-52 % Mean Corpuscular Volume 98 80-99 fL Mean Corpuscular Hemoglobin 32 25-34 pg Mean Corpuscular Hemoglobin Concent 32 32-36 g/dL Red Cell Distribution Width 15.1 H 10.0-14.5 % Platelet Count 267 130-400 10^3/uL Mean Platelet Volume 9.7 9.0-12.2 fL Immature Granulocyte % (Auto) 0 % Neutrophils (%) (Auto) 95 H 42-75 % Lymphocytes (%) (Auto) 2 L 12-44 % Monocytes (%) (Auto) 3 0-12 % Eosinophils (%) (Auto) 0 0-10 % Basophils (%) (Auto) 0 0-10 % Neutrophils # (Auto) 14.6 H 1.8-7.8 10^3/uL Lymphocytes # (Auto) 0.4 L 1.0-4.0 10^3/uL Monocytes # (Auto) 0.4 0.0-1.0 10^3/uL Eosinophils # (Auto) 0.0 0.0-0.3 10^3/uL Basophils # (Auto) 0.0 0.0-0.1 10^3/uL Immature Granulocyte # (Auto) 0.1 0.0-0.1 10^3/uL Neutrophils % (Manual) 91 % Lymphocytes % (Manual) 5 % Monocytes % (Manual) 4 % Blood Morphology Comment NORMAL Prothrombin Time 105.5 *H 12.2-14.7 SEC INR Comment 14.8 *H 0.8-1.4 Sodium Level 132 L 135-145 MMOL/L Potassium Level 4.6 3.6-5.0 MMOL/L Chloride Level 101 98-107 MMOL/L Carbon Dioxide Level 21 21-32 MMOL/L Anion Gap 10 5-14 MMOL/L Blood Urea Nitrogen 30 H 7-18 MG/DL Creatinine 0.94 0.60-1.30 MG/DL Estimat Glomerular Filtration Rate 62 BUN/Creatinine Ratio 32 Glucose Level 139 H 70-105 MG/DL Calcium Level 8.5 8.5-10.1 MG/DL Corrected Calcium 9.1 8.5-10.1 MG/DL Phosphorus Level 2.6 2.3-4.7 MG/DL Magnesium Level 2.0 1.6-2.4 MG/DL Total Bilirubin 0.6 0.1-1.0 MG/DL Aspartate Amino Transf (AST/SGOT) 25 5-34 U/L Alanine Aminotransferase (ALT/SGPT) 61 H 0-55 U/L Alkaline Phosphatase 64 40-136 U/L Total Protein 5.8 L 6.4-8.2 GM/DL Albumin 3.3 3.2-4.5 GM/DL B-Type Natriuretic Peptide 454.3 H <100.0 PG/ML Blood Gas Puncture Site RT RADIAL Blood Gas Patient Temperature 36.6 Arterial Blood pH 7.38 7.37-7.43 Arterial Blood Partial Pressure CO2 42 35-45 MMHG Arterial Blood Partial Pressure O2 92 79-93 MMHG Arterial Blood HCO3 24 23-27 MMOL/L Arterial Blood Total CO2 25.7 21.0-31.0 MMOL/L Arterial Blood Oxygen Saturation 98 94-100 % Arterial Blood Base Excess -0.2 -2.5-2.5 MMOL/L Joshua Test YES-POS Blood Gas Ventilator Setting NO Blood Gas Inspired Oxygen 50% BIPAP Physical Exam Physical Exam Vital Signs Vital Signs - First Documented 04/05/22 04/05/22 01:50 02:00 Temp 36.6 Pulse 105 Resp 24 B/P (MAP) 144/100 (115) Pulse Ox 97 O2 Delivery NIV Bilevel O2 Flow Rate 50.00 FiO2 50 Capillary Refill : Height, Weight, BMI Height: 5'8.00" Weight: 243lbs. 2.0oz. 110.689440ih; 39.95 BMI Method:Stated General Appearance: No Apparent Distress (patient tolerating BiPap therapy we ll) Respiratory: No Accessory Muscle Use, Decreased Breath Sounds (bilaterally), Rhonci (bilateral), Wheezing (bilateral, more prominent on left ) Cardiovascular: Other (distant heart sounds, R LE +1 edema patient reports is chronic) Gastrointestinal: Normal Bowel Sounds, Non Tender, Soft Extremity: Other (R LE edema +1) Neurologic/Psychiatric: Alert, Normal Mood/Affect Skin: Normal Color, Warm/Dry A/P-Cardiology Admission Diagnosis Acute respiratory failure COVID-19 pneumonia Atrial fibrillation Coumadin toxicity Assessment/Plan Acute respiratory failure with diffuse pulmonary infiltrate on chest x-ray representing pneumonia Currently on BiPAP, responding to current treatment. COVID-19 pneumonia. Continue to monitor Atrial fibrillation with rapid ventricular response, new onset. Started on Cardizem drip and tolerating it well. [id number] score 5, patient will require oral anticoagulation as an outpatient She has been maintained on Coumadin as an outpatient. We will consider using Xarelto History of peripheral arterial disease, intolerant/allergy to Plavix. Maintained on Coumadin, currently having Coumadin toxicity Coumadin toxicity with INR 14, received 10 mg of vitamin K and [facility] emergency room No signs of active bleeding, will continue monitoring and give FFP as needed Continue to monitor daily INR Hypertension, continue to monitor blood pressure Hyperlipidemia, intolerant to statin. COPD. LELE POND MD Apr 05, 2022 10:04
[2022-04-05] MEDS: ACETAMINOPHEN 325 MG TABLET PO PRN ×2 (10:20→21:13)
--- NOTE | 2022-04-05 10:22 | Tele-ICU Consult ---
History of Present Illness History of Present Illness Date Seen by Provider: Apr 05, 2022 Time Seen by Provider: 10:22 Date of Admission (Tele-ICU Physician , consultation as per request of PCP Service provided via interactive audio and video telecommunications E-CARE system to a patient admitted to ICU bed in [facility]. Available chart/ vitals / labs / Images reviewed H&P is from ER notes Patient's information available about PMH, Shx, Fhx allergy reviewed inEMR. ROS as per chart and RN report Now in ICU, hemodynamically stable Video assessment done using teleICU camera, rest of exam as per RN Discussed with RN. Consultants: Hospital course: (04/05) 77yr F admitted for Acute Respiratory Failure due to Covid 19. Patient wears home 02 at night but has been wearing it during the day. Her husbans tested positive for Flu and Covid (she was treated with Tamiflu and Paxlovid prophylactically). CXR showed central vascular congestion and she was given Lasix and Solu Medrol. Transferred to [place] ICU for increased 02 needs. A/P ( on chronic) hypoxic resp failure - on BIPAP 50% 03/16 rr 20 tv 500-800 , received SM 125 and lasix in ER - will try VT today - cont decadron and nebs A fib RVR -? chronic, AC with coumadin TECHNICAL AID - on cardizem gtt - to resume po - cardiology cons ulted Coagulopathy ( on warfarin - INT 14 04/05 - no active bleeding , received Vit K 2.5 04/04 - follow Covid PNA ( exposud to [facility] , patient treated with both Tamiflu and Paxlovid prophylactically as an outpatient. - started on decadrone - empiric abx started Chronic hypoxic rep failure - O2 at night TECHNICAL AID - ? Dx not clear: asthma vs COPD , , on br-dilators at home , ? NURYS Chronic back pain Lines : periph , (Central Line Necessity Reviewed) Butcher: + OG: Nutrition: Po Analgesia: Anxiety/ delirium VTE Prophylaxis: INR elevated Stress Ulcer Prophylaxis: NA Plans in collaboration with bedside consultants and IM MDs. Discussed with RN to reach out if any questions or concerns A total of 31 minutes of critical care time was devoted to this patient today, required to treat and/or prevent further deterioration of critical care condition ( as above ) . I am remotely monitoring this patient from another state. I am unable to do the bedside exam, and history/physical and pertinent information is taken from other notes in the computer and bedside staff. . Reason for Visit: Atrial fibrillation Allergies and Home Medications Allergies Coded Allergies: Penicillins (Verified Allergy, Unknown, 03/23/13) Moflpog-Pap-Wmm Reductase Inhibitor (Verified Allergy, Unknown, 03/23/13) JOINT PAIN clopidogrel bisulfate (Verified Allergy, Unknown, 03/23/13) codeine (Verified Allergy, Unknown, 09/14/11) diazepam (Unverified Allergy, Unknown, 01/13/15) monosodium glutamate (Unverified Allergy, Unknown, 01/15/15) FROM UNCODED ALLERGIES morphine (Verified Allergy, Unknown, 09/14/11) Home Medications Albuterol Sulfate 8.5 Gm Hfa.aer.ad, 8.5 GM IH Q4H Prescribed by: TALITA FRANZ on 01/17/15 08 Amlodipine Besylate 5 Mg Tablet, 5 MG PO DAILY, (Reported) Aspirin 81 Mg Tabec, 81 MG PO DAILY, (Reported) Cholecalciferol (Vitamin D3) 50,000 Unit Capsule, 50,000 UNIT PO WEEKLY, (Reported) Folic Acid 1 Mg Tablet, 1 MG PO DAILY, (Reported) Gluc 2KCL/Chondr/Villa Hy/Hy Ac 1 Each Capsule, 1 CAP PO DAILY, (Reported) Guaifenesin 600 Mg Tab.er.12h, 600 MG PO BID Prescribed by: TALITA FRANZ on 01/17/15 08 Hydrocodone Bit/Acetaminophen 1 Each Tablet, 1 TAB PO Q6H PRN for PAIN, (Reported) Hydroxychloroquine Sulfate 200 Mg Tablet, 200 MG PO BID, (Reported) Levofloxacin 750 Mg Tablet, 750 MG PO DAILY@11 Prescribed by: TALITA FRANZ on 01/17/15 08 Loratadine 10 Mg Tablet, 10 MG PO DAILY, (Reported) Multivitamin 1 Each Tablet, 1 TAB PO DAILY, (Reported) [place]-3 Fatty Acids/Fish Oil 1 Each Capsule, 1 CAP PO BID, (Reported) Prednisone 10 Mg Tab.ds.pk, 10 MG PO UD Prescribed by: TALITA FRANZ on 01/17/15 08 Triamterene/Hydrochlorothiazid 1 Each Capsule, 1 TAB PO DAILY, (Reported) Past Medical/Social/Family Hx Patient Social History Marrital Status: Employed/Student: retired Tobacco Use?: No Substance use?: No Alcohol Use?: No Immunizations Up To Date Influenza Vaccine Up-to-Date: Yes; Up-to-Date Hepatitis A: No Hepatitis B: No TB Skin Test: None Date of Pneumonia Vaccine: Jan 09, 2013 Current Status status: No status: No Communicates: Verbally Primary Language: Tuvaluan Preferred Spoken Language: Tuvaluan Is interpretation needed?: No Review of Systems Constitutional: see HPI Focused Exam Height, Weight, BMI Height: 5'8.00" Weight: 243lbs. 2.0oz. 110.781195pw; 39.95 BMI Method:Stated Exam Exam Patient acknowledged, consented, and participated in this virtual visit which was conducted using real time audio/video Vital Signs Date Time Temp Pulse Resp B/P (MAP) Pulse Ox O2 Delivery O2 Flow Rate FiO2 04/05/22 10:00 101 29 144/78 (100) 98 NIV Bilevel 50.00 04/05/22 09:00 104 29 143/99 (114) 98 NIV Bilevel 50.00 04/05/22 08:00 96 27 106/87 (93) 98 NIV Bilevel 50.00 04/05/22 07:48 36.3 04/05/22 07:00 93 04/05/22 07:00 93 28 140/94 (109) 98 NIV Bilevel 50.00 04/05/22 06:00 101 23 135/106 (116) 98 NIV Bilevel 50.00 04/05/22 05:00 112 25 132/87 (102) 98 NIV Bilevel 50.00 04/05/22 04:00 83 16 145/90 (108) 97 NIV Bilevel 50.00 04/05/22 04:00 97 NIV Bilevel 50 04/05/22 03:00 99 28 149/116 (127) 98 NIV Bilevel 50.00 04/05/22 02:57 105 124/101 04/05/22 02:33 105 97 50 04/05/22 02:00 98 NIV Bilevel 50 04/05/22 02:00 36.6 NIV Bilevel 50.00 04/05/22 02:00 105 24 144/100 (115) 98 NIV Bilevel 50.00 12/26/22 01:50 105 97 50.00 I & O 04/05/22 07:00 Output Total 550 ml Balance -550 ml Height & Weight Height: 5'8.00" Weight: 243lbs. 2.0oz. 110.018127yu; 39.95 BMI Method:Stated General Appearance: No Apparent Distress (patient tolerating BiPap therapy well ) Respiratory: No Accessory Muscle Use, Decreased Breath Sounds (bilaterally), Rhonci (bilateral), Wheezing (bilateral, more prominent on left ) Cardiovascular: Other (distant heart sounds, R LE +1 edema patient reports is chronic) Extremity: Other (R LE edema +1) Neurologic/Psychiatric: Alert, Normal Mood/Affect Skin: Normal Color, Warm/Dry Results Lab Laboratory Tests 04/05/22 03:30 Assessment/Plan Assessment/Plan 1 ALBERTO NAVARRO MD Apr 05, 2022 10:22
[2022-04-05] MEDS: RT-ALBUTEROL HFA 8.5 GM INHALER IH SCH ×5 (11:14→23:59)
[2022-04-05 20:00] LABS: INR 7.3 (0.8-1.4); PROTHROMBIN TIME PATIENT 61.9 SEC (12.2-14.7)
[2022-04-05] MEDS: MELATONIN 3 MG TABLET PO PRN (23:52)
[2022-04-06] MEDS: RT-ALBUTEROL HFA 8.5 GM INHALER IH SCH ×6 (02:47→22:13)
[2022-04-06] MEDS: ACETAMINOPHEN 325 MG TABLET PO PRN (03:11)
[2022-04-06 04:53] LABS: BASOPHILS % (AUTO) 0 % (0-10); EOSINOPHILS % (AUTO) 0 % (0-10); HEMATOCRIT 29 % (35-52); HEMOGLOBIN 9.4 g/dL (11.5-16.0); LYMPHOCYTES # (AUTO) 0.8 10^3/uL (1.0-4.0); LYMPHOCYTES % (AUTO) 4 % (12-44); MEAN CORPUSCULAR HEMOGLOBIN 31 pg (25-34); MEAN CORPUSCULAR HGB CONC 32 g/dL (32-36); MEAN CORPUSCULAR VOLUME 97 fL (80-99); MONOCYTES # (AUTO) 0.8 10^3/uL (0.0-1.0); MONOCYTES % (AUTO) 4 % (0-12); NEUTROPHILS # (AUTO) 18.6 10^3/uL (1.8-7.8); NEUTROPHILS % (AUTO) 92 % (42-75); PLATELET COUNT 283 10^3/uL (130-400); WHITE BLOOD COUNT 20.3 10^3/uL (4.3-11.0)
[2022-04-06] MEDS: CEFEPIME INJECTION 1,000 MG in NS (IVPB) 50 ML IV SCH ×4 (05:23→23:52)
[2022-04-06 05:32] LABS: ALBUMIN 3.2 GM/DL (3.2-4.5); BILIRUBIN,TOTAL 0.8 MG/DL (0.1-1.0); CALCIUM 8.6 MG/DL (8.5-10.1); CREATININE SERUM 0.92 MG/DL (0.60-1.30); MAGNESIUM 2.4 MG/DL (1.6-2.4); PHOSPHORUS 2.5 MG/DL (2.3-4.7); POTASSIUM 4.5 MMOL/L (3.6-5.0); TOTAL PROTEIN 5.8 GM/DL (6.4-8.2)
[2022-04-06] MEDS: KCL 20 MEQ TAB (K-DUR) PO SCH (05:36)
[2022-04-06] MEDS: POTASSIUM CL 10MEQ/50ML IVPB 50 ML IV SCH (05:36)
[2022-04-06] MEDS: MAGNESIUM 1 GM/100 ML IVPB 100 ML IV SCH (05:36)
[2022-04-06] MEDS: SENNOSIDES 8.6 MG (SENOKOT) TAB PO SCH ×2 (08:27→20:15)
[2022-04-06] MEDS: DOCUSATE SODIUM 100 MG (COLACE) CAP PO SCH ×2 (08:27→20:14)
[2022-04-06] MEDS: HYDROcodone/APAP 5 MG/325 MG (LORTAB) TAB PO PRN ×3 (08:27→23:04)
--- NOTE | 2022-04-06 08:30 | Cardiology Progress Note ---
Subjective Date Seen by Provider: Apr 06, 2022 Time Seen by Provider: 08:29 Subjective/Events-last exam Patient is laying down in bed, maintained on Vapotherm. Complaining of back pain Review of Systems General: No Chills, No Night Sweats; Fatigue; No Malaise, No Appetite, No Other HEENT: No Head Aches, No Visual Changes, No Eye Pain, No Ear Pain, No Dysphasia, No Sinus Congestion, No Post Nasal Drip, No Sore Throat, No Other Pulmonary: Dyspnea, Cough; No Pleuritic Chest Pain, No Other Cardiovascular: No: Chest Pain, Palpitations, Orthopnea, Paroxysmal Noc. Dyspnea, Edema, Lt Headedness, Other Objective-Cardiology Exam Last Set of Vital Signs Vital Signs 04/06/22 04/06/22 04/06/22 07:17 07:30 08:00 Temp 36.3 Pulse 81 Resp 26 B/P (MAP) 167/101 (123) Pulse Ox 90 O2 Delivery Vapotherm O2 Flow Rate 30.00 90.00 FiO2 90 I&O Intake and Output 04/06/22 00:00 Intake Total 650 ml Output Total 1150 ml Balance -500 ml Intake Oral 600 ml IV Total 50 ml Output Urine Total 1150 ml Daily Weight Change No General: Alert, Cooperative HEENT: Atraumatic Neck: Supple Lungs: Other (Maintained on Vapotherm) Heart: Other (Atrial fibrillation with rapid ventricular response) Extremities: No Clubbing, No Cyanosis Skin: No Rashes Neuro: Normal Speech Psych/Mental Status: Other (Anxious) Results Lab Laboratory Tests 04/06/22 04:41 A/P-Cardiology Admission Diagnosis Acute respiratory failure COVID-19 pneumonia Atrial fibrillation Coumadin toxicity Assessment/Plan Acute respiratory failure with diffuse pulmonary infiltrate on chest x-ray representing pneumonia Currently on Vapotherm, managed by medical team COVID-19 pneumonia. Continue to monitor Atrial fibrillation with rapid ventricular response, new onset. Started on Cardizem drip and tolerating it well. [id number] score 5, patient will require oral anticoagulation as an outpatient She has been maintained on Coumadin as an outpatient. We will consider using Xarelto History of peripheral arterial disease, intolerant/allergy to Plavix. Maintained on Coumadin, currently having Coumadin toxicity Coumadin toxicity with INR 14, received 10 mg of vitamin K and [facility] emergency [facility] and [facility] INR on April 06, 2022 is 7. No signs of active bleeding, will continue monitoring and give FFP as needed Continue to monitor daily INR Hypertension, continue to monitor blood pressure Hyperlipidemia, intolerant to statin. COPD. LELE POND MD Apr 06, 2022 08:30
--- NOTE | 2022-04-06 09:42 | Progress Note ---
ELMA PEACOCK 04/06/22 9:42am: Subjective Date Seen by a Provider: Apr 06, 2022 Time Seen by a Provider: 08:00 Subjective/Events-last exam Ms. Felipe is a 77 year old female with a PMHx of HTN, arthritis, and PAD with Coumadin therapy who presents with acute on chronic respiratory failure with hypoxia and is COVID positive. The patient transitioned to vapotherm therapy from BiPap around 1100 on 04/05. The patient is resting uncomfortably in bed this morning. Patient states she is experiencing 10/10 pain but is unable to localize her pain. Patient endorses myalgia, back pain, and buttocks pain for sitting in bed. Patient is requesting pain medication. Patient is drifting in and out of sleep during encounter. Patient is not oriented to place but is aware she has COVID and is in a hospital. Patient is oriented to person. Patient disposition communicated with Nursing and Dr. Franco. Lortab 5 has been administered and patient's disposition has improved as well as her BP. Review of Systems General: Other (myalgia) Pulmonary: No Dyspnea Cardiovascular: No: Chest Pain Gastrointestinal: Abdominal Pain; No: Nausea, Vomiting Musculoskeletal: back pain Neurological: Confusion Objective Exam Last Set of Vital Signs Vital Signs Date Time Temp Pulse Resp B/P (MAP) Pulse Ox O2 Delivery O2 Flow Rate FiO2 04/06/22 09:00 103 20 148/89 (108) 96 Vapotherm 30.00 90.00 04/06/22 07:30 36.3 04/06/22 07:17 90 Capillary Refill : Less Than 3 Seconds I&O Intake and Output 04/06/22 00:00 Intake Total 650 ml Output Total 1150 ml Balance -500 ml Intake Oral 600 ml IV Total 50 ml Output Urine Total 1150 ml Daily Weight Change No General: Mild Distress Lungs: Other (Diffuse course breath sounds/crackles) Heart: Regular Rate, Other (distant heart sounds) Abdomen: Normal Bowel Sounds, Soft Psych/Mental Status: Other (Oriented to person) Results Lab Laboratory Tests 04/05/22 19:10: Prothrombin Time 61.9*H, INR Comment 7.3*H 04/06/22 04:41: White Blood Count 20.3H, Red Blood Count 3.02L, Hemoglobin 9.4L, Hematocrit 29L, Mean Corpuscular Volume 97, Mean Corpuscular Hemoglobin 31, Mean Corpuscular Hemoglobin Concent 32, Red Cell Distribution Width 15.0H, Platelet Count 283, Mean Platelet Volume 10.0, Immature Granulocyte % (Auto) 1, Neutrophils (%) (Auto) 92H, Lymphocytes (%) (Auto) 4L, Monocytes (%) (Auto) 4, Eosinophils (%) (Auto) 0, Basophils (%) (Auto) 0, Neutrophils # (Auto) 18.6H, Lymphocytes # (Auto) 0.8L, Monocytes # (Auto) 0.8, Eosinophils # (Auto) 0.0, Basophils # (Auto) 0.0, Immature Granulocyte # (Auto) 0.1, Sodium Level 132L, Potassium Level 4.5, Chloride Level 102, Carbon Dioxide Level 19L, Anion Gap 11, Blood Urea Nitrogen 40H, Creatinine 0.92, Estimat Glomerular Filtration Rate 64, BUN/Creatinine Ratio 43, Glucose Level 136H, Calcium Level 8.6, Corrected Calcium 9.2, Phosphorus Level 2.5, Magnesium Level 2.4, Total Bilirubin 0.8, Aspartate Amino Transf (AST/SGOT) 22, Alanine Aminotransferase (ALT/SGPT) 48, Alkaline Phosphatase 57, Total Protein 5.8L, Albumin 3.2 Microbiology 04/05/22 MRSA Screen - Final, Complete MRSA not isolated Assessment/Plan Assessment/Plan Assess & Plan/Chief Complaint 1. Acute respiratory failure with hypoxia, Pneumonia, COVID + -BiPap therapy - currently 50%. Continue and wean as tolerated -> transitioned to vapotherm on 04/05 - 30.00 with FiO2 90% -Albuterol breathing treatments - 4 puffs Q4H IH with RT -Decadron 6mg IV qd -Cefepime 1000mg - 50ml @ 100mls/hr Q6H IV for PNA -AM labs - CBC, BMP, INR -PT 2. Atrial fibrillation vs. Heart failure -Continue telemetry and diltiazem therapy 125mg - 125ml @ 5mls/hr Q24h IV for rate control -Anti-coagulation for stroke prophylaxis - INR of 14.8. No anti-coagulation will be initiated at this time. Repeat INR this afternoon/evening. Patient is s/p Vitamin K 2.5mg therapy. Monitor Hbg with AM CBC/signs of bleeding -> INR 7.3 on 04/06 -Echocardiogram - CXR findings of enlarged cardiac silhouette, BNP of 454.3 -Consult Cardiology -> maintain diltiazem drip, monitor BP, consider Xarelto for anti-coagulation 3. Protein nutrition deficiency with total protein of 5.8 on 04/05, 5.8 on 04/06 -Protein dense diet as tolerated 4. Hyponatremia with Na of 132 on 04/05, 132 on 04/06 -Monitor with AM BMP 5. Pain management - myalgia/arthritis -Lortab 5mg Q6H PO PRN 6. HTN -Monitor BP -Resume home medications - Norvasc 5mg PO qd, triamterene/ HCTZ 75-50 tablet PO qd -Hydralazine 5mg Q4H PRN IV for SBP >180, DBP >120 Clinical Quality Measures Admission Status Admission Dx 1. Acute respiratory failure with hypoxia, Pneumonia, COVID + -BiPap therapy - currently 50%. Continue and wean as tolerated -Albuterol breathing treatments - 4 puffs Q4H IH with RT -Decadron 6mg IV qd -Cefepime 1000mg - 50ml @ 100mls/hr Q6H IV for PNA -AM labs - CBC, BMP, INR 2. Atrial fibrillation vs. Heart failure -Continue telemetry and diltiazem therapy 125mg - 125ml @ 5mls/hr Q24h IV for rate control -Anti-coagulation for stroke prophylaxis - INR of 14.8. No anti-coagulation will be initiated at this time. Repeat INR this afternoon/evening. Patient is s/p Vitamin K 2.5mg therapy. Monitor Hbg with AM CBC/signs of bleeding -Echocardiogram - CXR findings of enlarged cardiac silhouette, BNP of 454.3 -Consult Cardiology 3. Protein nutrition deficiency with total protein of 5.8 on 04/05 -Protein dense diet as tolerated 4. Hyponatremia with Na of 132 on 04/05 -Monitor with AM BMP JENNIFER FRANCO MD 04/06/22 12:36pm: Assessment/Plan Assessment/Plan Assess & Plan/Chief Complaint Patient reports not feeling well today but believes it is due to her pain from her rheumatoid arthritis. She states that she aches all over. She had just been given her home hydrocodone and is hopeful that that will help. Her blood pressure has been elevated this morning but she believes it is due to her pain. She is off of BiPAP and is on Vapotherm and maintaining oxygen saturations. I did discuss with her natural course of COVID and that she may get worse before she gets better but we will continue aggressive therapy in the ICU at this time. She is requesting to get out of bed today and we will order physical therapy to assist with this Supervisory-Addendum Brief Verification & Attestation Participated in pt care: history, MDM, physical Personally performed: exam, history, MDM, supervision of care Care discussed with: Medical Student Procedures: n/a Results interpretation: Verified all documentation Verification and Attestation of Medical Student E/M Service A medical student performed and documented this service in my presence. I reviewed and verified all information documented by the medical student and made modifications to such information, when appropriate. I personally performed the physical exam and medical decision making. Jennifer Franco, Apr 06, 2022,12:34 ELMA PEACOCK Apr 06, 2022 9:42 am JENNIFER FRANCO MD Apr 06, 2022 12:36 pm
[2022-04-06] MEDS: amLODIPine 5 MG (NORVASC) TAB PO SCH (09:43)
--- NOTE | 2022-04-06 09:52 | Tele-ICU Progress Note ---
Subjective Date Seen by a Provider: Apr 06, 2022 Time Seen by a Provider: 09:52 Subjective/Events-last exam (Tele-ICU Physician , Progress Note ) Service provided via interactive audio and video telecommunications E-CARE system to a patient admitted to ICU bed in [facility]. Available chart/ vitals / labs / Images reviewed Video assessment done using teleICU camera, rest of exam as per RN Discussed with RN Events overnight : Afebrile hemodynamically stable Respiratory - VT I/O = Drips: Pressors- no Consultants: Hospital course: (04/05) 77yr F admitted for Acute Respiratory Failure due to Covid 19. Patient wears home 02 at night but has been wearing it during the day. Her husbans tested positive for Flu and Covid (she was treated with Tamiflu and Paxlovid prophylactically). CXR showed central vascular congestion and she was given Lasix and Solu Medrol. Transferred to [place] ICU for increased 02 needs. A/P ( on chronic) hypoxic resp failure - on BIPAP 50% 03/16 rr 20 tv 500-800 , received SM 125 and lasix in ER -VT 30L 90% - cont decadron and nebs - ? NEED HIGHER DOSE STEROIDS - off IVF A fib RVR -? chronic, AC with coumadin RELEASE COORDINATOR - on cardizem gtt 10 - to resume po - cardiology cons ulted Coagulopathy ( on warfarin - INT 14 04/05 - no active bleeding , received Vit K 2.5 04/04 - follow Covid PNA ( exposud to [facility] , patient treated with both Tamiflu and Paxlovid prophylactically as an outpatient. - started on decadrone - empiric abx started Chronic hypoxic rep failure - O2 at night RELEASE COORDINATOR - ? Dx not clear: asthma vs COPD , , on br-dilators at home , ? NURYS Chronic back pain Hematuria 04/06 - cleared Lines : periph , (Central Line Necessity Reviewed) Butcher: + OG: Nutrition: Po Analgesia: Anxiety/ delirium VTE Prophylaxis: INR elevated Stress Ulcer Prophylaxis: NA Plans in collaboration with bedside consultants and IM MDs. Discussed with RN to reach out if any questions or concerns A total of 31 minutes of critical care time was devoted to this patient today, required to treat and/or prevent further deterioration of critical care condition ( as above ) . I am remotely monitoring this patient from another state. I am unable to do the bedside exam, and history/physical and pertinent information is taken from other notes in the computer and bedside staff. Sepsis Event Evaluation Height, Weight, BMI Height: 5'8.00" Weight: 243lbs. 2.0oz. 110.524718tl; 39.92 BMI Method:Stated Exam Exam Patient acknowledged, consented, and participated in this virtual visit which was conducted using real time audio/video Vital Signs Date Time Temp Pulse Resp B/P (MAP) Pulse Ox O2 Delivery O2 Flow Rate FiO2 04/06/22 09:00 103 20 148/89 (108) 96 Vapotherm 30.00 90.00 04/06/22 08:00 81 26 167/101 (123) 90 Vapotherm 30.00 90.00 04/06/22 07:36 98 169/97 04/06/22 07:30 36.3 04/06/22 07:17 93 Vapotherm 30.00 90 04/06/22 07:02 88 04/06/22 07:00 96 26 184/109 (134) 90 Vapotherm 30.00 90.00 04/06/22 06:00 96 28 148/104 (119) 97 Vapotherm 30.00 90.00 04/06/22 05:00 92 31 150/104 (119) 96 Vapotherm 30.00 90.00 04/06/22 04:07 37.2 83 28 156/103 (120) 95 Vapotherm 30.00 90.00 04/06/22 04:00 85 34 157/92 (113) 95 Vapotherm 30.00 90.00 04/06/22 04:00 96 Vapotherm 30.00 90 04/06/22 03:00 74 27 162/92 (115) 95 Vapotherm 30.00 90.00 04/06/22 02:52 95 Vapotherm 30.00 90 04/06/22 02:00 77 25 145/92 (109) 99 Vapotherm 30.00 90.00 04/06/22 01:00 103 04/06/22 01:00 70 25 144/79 (100) 99 Vapotherm 30.00 90.00 04/06/22 00:36 96 Vapotherm 30.00 90.00 04/06/22 00:00 86 27 152/83 (106) 93 Vapotherm 30.00 80.00 04/05/22 23:53 92 Vapotherm 30.00 80 04/05/22 23:00 77 30 134/81 (98) 94 Vapotherm 30.00 80.00 04/05/22 22:00 79 21 139/87 (104) 94 Vapotherm 30.00 80.00 04/05/22 21:00 80 18 145/93 (110) 96 Vapotherm 30.00 80.00 04/05/22 20:00 87 25 126/85 (99) 96 Vapotherm 30.00 80.00 04/05/22 20:00 36.5 04/05/22 20:00 93 Vapotherm 30.00 80 04/05/22 19:35 92 Vapotherm 30.00 80 04/05/22 19:00 96 04/05/22 19:00 106 22 122/91 (101) 96 Vapotherm 30.00 80.00 04/05/22 18:00 101 29 165/87 (113) 91 Vapotherm 30.00 80.00 04/05/22 17:01 96 148/91 04/05/22 17:00 101 31 117/88 (98) 94 Vapotherm 30.00 80.00 04/05/22 16:00 96 Vapotherm 30.00 80 04/05/22 16:00 130 23 148/91 (110) 96 Vapotherm 30.00 80.00 04/05/22 15:51 36.0 04/05/22 15:35 94 Vapotherm 30.00 80 04/05/22 15:00 110 29 168/91 (116) 98 Vapotherm 30.00 80.00 04/05/22 14:00 96 28 150/92 (111) 94 Vapotherm 30.00 80.00 04/05/22 13:00 94 27 151/92 (111) 96 Vapotherm 30.00 80.00 04/05/22 12:46 103 04/05/22 12:00 112 25 125/76 (92) 96 Vapotherm 30.00 80.00 04/05/22 12:00 96 NIV Bilevel 50 04/05/22 11:46 36.3 04/05/22 11:16 Vapotherm 30.00 80.00 04/05/22 11:11 94 Vapotherm 30.00 80 04/05/22 11:00 113 24 123/86 (98) 97 NIV Bilevel 50.00 04/05/22 10:00 101 29 144/78 (100) 98 NIV Bilevel 50.00 I & O 04/06/22 07:00 Intake Total 900 ml Output Total 875 ml Balance 25 ml Height & Weight Height: 5'8.00" Weight: 243lbs. 2.0oz. 110.021482eu; 39.92 BMI Method:Stated General Appearance: No Apparent Distress (patient tolerating BiPap therapy well) Respiratory: No Accessory Muscle Use, Decreased Breath Sounds (bilaterally), Rhonci (bilateral), Wheezing (bilateral, more prominent on left ) Cardiovascular: Other (distant heart sounds, R LE +1 edema patient reports is chronic) Capillary Refill: Less Than 3 Seconds Extremity: Other (R LE edema +1) Neurologic/Psychiatric: Alert, Normal Mood/Affect Skin: Normal Color, Warm/Dry Results Lab Laboratory Tests 04/05/22 03:30 04/06/22 04:41 Assessment/Plan Assessment/Plan 1 ALBERTO NAVARRO MD Apr 06, 2022 09:52
[2022-04-06 10:09] LABS: ABG BASE EXCESS 0.6 MMOL/L (-2.5-2.5); ABG OXYGEN SATURATION 94 % (94-100); ABG PCO2 40 MMHG (35-45); ABG PH 7.41 (7.37-7.43); ABG PO2 65 MMHG (79-93); ABG TCO2 26.2 MMOL/L (21.0-31.0)
[2022-04-06 10:10] LABS: INSPIRED O2 90%; PATIENT TEMP 36.2; VENTILATOR NO
--- NOTE | 2022-04-06 11:00 | Physical Therapy Evaluation ---
PT Evaluation-General Medical Diagnosis Admission Date Apr 05, 2022 at 01:39 Medical Diagnosis: Covid/A-fib/respiratory failure Onset Date: Apr 05, 2022 Therapy Diagnosis Therapy Diagnosis: generalized weakness/debility Height/Weight Height (Feet): 5 Height (Inches): 8.00 Weight (Pounds): 243 Weight (Ounces): 2.0 Precautions Precautions/Isolations: Droplet Isolation, Fall Prevention Referral Physician: Sriram Reason for Referral: Evaluation/Treatment Medical History Pertinent Medical History: Atrial Fib, COPD, HTN, Renal Insufficiency, Rheumatoid Arthritis Current History Transfer from outside ER due to Covid (+) Reviewed History: Yes Social History Home: Single Level Current Living Status: Spouse Entry Into Home: Stairs With Railing PT Steps Into Home: 3 Prior Prior Level of Function SCALE: Activities may be completed with or without assistive devices. 4-Wjwoegnsqe-ojgbgdr completes the activity by him/herself with no assistance from a helper. 5-Set-up or Clean-up Assistance-helper sets up or cleans up; patient completes activity. Morrill assists only prior to or following the activity. 4-Supervision or Touching Assistance-helper provides verbal cues and/or touching/steadying and/or contact guard assistance as patient completes activ ity. Assistance may be provided throughout the activity or intermittently. 3-Partial/Moderate Assistance-helper does LESS THAN HALF the effort. Morrill lifts, holds or supports trunk or limbs, but provides less than half the effort. 2-Substantial/Maximal Assistance-helper does MORE THAN HALF the effort. Morrill lifts or holds trunk or limbs and provides more than half the effort. 6-Crxmplnmn-sjodas does ALL the effort. Patient does none of the effort to complete the activity. Or, the assistance of 2 or more helpers is required for the patient to complete the activity. If activity was not attempted, code reason: 7-Patient Refused. 9-Not Applicable-not attempted and the patient did not perform the activity before the current illness, exacerbation or injury. 10-Not Attempted due to Environmental Limitations-(lack of equipment, weather restraints, etc.). 88-Not Attempted due to Medical Conditions or Safety Concerns. Bed Mobility: 6 Transfers (B,C,W/C): 6 Gait: 6 Stairs: 6 Indoor Mobility (Ambulation): Independent Stairs: Independent Prior Devices Use: Walker per patient PT Evaluation-Current Subjective Patient agrees to PT. Objective Patient Orientation: Normal For Age Attachments: Oxygen (vapotherm), Butcher Catheter, IV ROM/Strength ROM Lower Extremities bilateral LE WFL Strength Lower Extremities 3/5 grossly bilateral LE all planes Integumentary/Posture Bladder Incontinence: Butcher Cath Posture WFL Neuromuscular (Tone, Coordination, Reflexes) slightly diminished coordination due to weakness/inactivity Sensory Vision: Functional Hearing: Functional Transfers Lying to Sitting/Side of Bed(Q: 3 Sit to Stand (QC): 3 Chair/Rvn-sl-Wrbif Xfer(QC): 3 Gait Mode of Locomotion: Walk Anticipated Mode of Locomotion: Walk Walk 10 feet (QC): 3 Walk 50 ft with 2 Turns(QC): 88 Walk 150 ft (QC): 88 Distance: 10' Gait Assistive Device: FWW Comments/Gait Description slightly unsteady due to weakness/debility Balance Sitting Static: Fair Sitting Dynamic: Fair Standing Static: Fair Standing Dynamic: Fair Assessment/Needs Patient is very debilitated and will benefit from skilled PT to address f unctional strength and mobility to improve current LOF. Patient is also limited by vapotherm and tubing to allow ambulation distance. Rehab Potential: Guarded PT Hotel Or Motel Manager Goals Hotel Or Motel Manager Goals PT Hotel Or Motel Manager Goals Time Frame: May 01, 2022 Roll Left & Right (QC): 6 Sit to Lying (QC): 6 Lying-Sitting on Side/Bed(QC): 6 Sit to Stand (QC): 6 Chair/Dkf-yf-Akvyp Xfer(QC): 6 Toilet Transfer (QC): 6 Walk 10 feet (QC): 4 Walk 50ft with 2 Turns (QC): 4 PT Plan Problem List Problem List: Activity Tolerance, Functional Strength, Safety, Balance, Gait, Transfer, Bed Mobility Treatment/Plan Treatment Plan: Continue Plan of Care Treatment Plan: Bed Mobility, Education, Functional Activity Taurus, Functional Strength, Gait, Safety, Therapeutic Exercise, Transfers Treatment Duration: May 01, 2022 Frequency: 6 times per week Estimated Hrs Per Day: .25 hour per day Patient and/or Family Agrees t: Yes Time Time In: 1030 Time Out: 1045 DATE: Apr 06, 2022 Total Billed Treatment Time: 15 Total Billed Treatment 1 visit EVMod 15 min LYDIA SOSA PT Apr 06, 2022 11:00
[2022-04-06] MEDS: fentaNYL INJ 100 MCG/2 ML AMP IVP PRN ×2 (14:26→20:07)
[2022-04-06] MEDS ORDERED: FUROSEMIDE 40 MG/4 ML INJ (LASIX) IVP ONE (14:30)
[2022-04-06 14:59] VITALS: BP 131/97
[2022-04-06] MEDS ORDERED: OMEG100032 PO (16:48)
[2022-04-06] MEDS ORDERED: ERGO1250 PO (16:48)
[2022-04-06] MEDS ORDERED: LORA10TA7 PO (16:48)
[2022-04-06] MEDS ORDERED: OSEL75CA15 PO (16:48)
[2022-04-06] MEDS ORDERED: ASPI-1238 PO (16:48)
[2022-04-06] MEDS ORDERED: METH2.5T PO (16:48)
[2022-04-06] MEDS ORDERED: ALLO100T PO (16:48)
[2022-04-06] MEDS ORDERED: ALBU0.63 NEB (16:48)
[2022-04-06] MEDS ORDERED: FURO20TA4 PO (16:48)
[2022-04-06] MEDS ORDERED: GLUC1CAP37 PO (16:48)
[2022-04-06] MEDS ORDERED: WARF-48 PO ×2 (16:48)
[2022-04-06] MEDS ORDERED: HYDR-3817 PO (16:48)
[2022-04-06] MEDS ORDERED: DEXA6TAB PO (16:48)
[2022-04-06] MEDS ORDERED: MOLN200C PO (16:48)
[2022-04-06 18:52] VITALS: BP 119/86
[2022-04-06] MEDS: MELATONIN 3 MG TABLET PO PRN (20:07)
[2022-04-06 22:13] VITALS: BP 133/71
[2022-04-07] MEDS: fentaNYL INJ 100 MCG/2 ML AMP IVP PRN ×7 (02:02→16:39)
[2022-04-07 02:40] VITALS: BP 155/78
[2022-04-07] MEDS: RT-ALBUTEROL HFA 8.5 GM INHALER IH SCH ×6 (02:40→23:05)
[2022-04-07 03:37] LABS: BASOPHILS % (AUTO) 0 % (0-10); EOSINOPHILS % (AUTO) 0 % (0-10); HEMATOCRIT 30 % (35-52); HEMOGLOBIN 9.2 g/dL (11.5-16.0); LYMPHOCYTES % (AUTO) 5 % (12-44); MEAN CORPUSCULAR HEMOGLOBIN 31 pg (25-34); MEAN CORPUSCULAR HGB CONC 31 g/dL (32-36); MEAN CORPUSCULAR VOLUME 101 fL (80-99); MEAN PLATELET VOLUME 10.6 fL (9.0-12.2); MONOCYTES # (AUTO) 0.7 10^3/uL (0.0-1.0); MONOCYTES % (AUTO) 4 % (0-12); NEUTROPHILS # (AUTO) 17.4 10^3/uL (1.8-7.8); NEUTROPHILS % (AUTO) 89 % (42-75); PLATELET COUNT 283 10^3/uL (130-400); WHITE BLOOD COUNT 19.4 10^3/uL (4.3-11.0)
[2022-04-07 06:37] LABS: BILIRUBIN,TOTAL 0.8 MG/DL (0.1-1.0); CALCIUM 8.5 MG/DL (8.5-10.1); TOTAL PROTEIN 5.7 GM/DL (6.4-8.2)
[2022-04-07 06:42] LABS: PROTHROMBIN TIME PATIENT 46.3 SEC (12.2-14.7)
[2022-04-07] MEDS: POTASSIUM CL 10MEQ/50ML IVPB 50 ML IV SCH (06:43)
[2022-04-07] MEDS: MAGNESIUM 1 GM/100 ML IVPB 100 ML IV SCH (06:43)
[2022-04-07] MEDS: KCL 20 MEQ TAB (K-DUR) PO SCH (06:43)
[2022-04-07] MEDS: CEFEPIME INJECTION 1,000 MG in NS (IVPB) 50 ML IV SCH ×3 (06:47→17:56)
[2022-04-07 06:48] LABS: CREATININE SERUM 0.95 MG/DL (0.60-1.30); PHOSPHORUS 2.3 MG/DL (2.3-4.7)
[2022-04-07 06:50] LABS: MAGNESIUM 2.5 MG/DL (1.6-2.4)
--- NOTE | 2022-04-07 08:17 | Diagnostic Imaging Report ---
INDICATION: Hypoxia. TECHNIQUE: Single view chest 5:34 AM. CORRELATION STUDY: 04/05/2022 FINDINGS: Extensive mixed alveolar interstitial infiltrate-like opacities throughout both lung franks do persist. Overall likely slightly increased from prior. Lung bases incompletely imaged. Heart size and mediastinum are generally stable as is the vasculature. IMPRESSION: 1. Extensive 5 lobe pulmonary infiltrates again demonstrated and overall appears increased from prior. Dictated by: Dictated on workstation # [id number]
[2022-04-07] MEDS: MULTIVIT W/MINERALS TAB (THERAGRAN M) PO SCH (08:52)
[2022-04-07] MEDS: LORATADINE (CLARITIN) 10 MG TAB PO SCH ×2 (08:53→11:24)
[2022-04-07] MEDS: DOCUSATE SODIUM 100 MG (COLACE) CAP PO SCH (08:53)
[2022-04-07] MEDS: FOLIC ACID 1 MG TAB PO SCH ×2 (08:54→11:23)
[2022-04-07] MEDS: TRIAMTERENE/HCTZ 75-50 (MAXZIDE,DYAZIDE) TABLET PO SCH ×2 (08:54→11:23)
[2022-04-07] MEDS: SENNOSIDES 8.6 MG (SENOKOT) TAB PO SCH (08:54)
[2022-04-07] MEDS: amLODIPine 5 MG (NORVASC) TAB PO SCH (08:54)
[2022-04-07] MEDS ORDERED: ASPIRIN E.C. 81 MG (ECOTRIN) TAB PO SCH (09:00)
--- NOTE | 2022-04-07 09:05 | Progress Note ---
ELMA PEACOCK 04/07/22 0905: Subjective Date Seen by a Provider: Apr 07, 2022 Time Seen by a Provider: 08:40 Subjective/Events-last exam Ms. Marion is a 77 year old female with a PMHx of HTN, arthritis, and PAD with Coumadin therapy who presents with acute on chronic respiratory failure with hypoxia and is COVID positive. The patient transitioned to vapotherm therapy from BiPap around 1100 on 04/05. Patient is resting upright in bed this morning. Nursing was in the room at the time administering AM medications. The patient took once pill but refused the rest stating she wanted to confirm her medication list with her and daughter. The patient's nurse has contacted pharmacy and think she took the amlodipine this morning. Patient and Nursing report that around 0645 this morning the patient had bright red hemoptysis. Patient confirms that she coughed up the blood rather than vomited. Patient denies other incidents since. The patient's CXR from this AM demonstrated worsening diffuse bilateral infiltrates but no change in cardiac or pulmonary vasculature or consolidations suspicious for mass/malignancy. The patient's Hgb is stable at 9.2, and INR has decreased to 5.0. Patient denies head ache, chest pain, SOA, abdominal pain, or N/V/D. Review of Systems HEENT: No Head Aches Pulmonary: No Dyspnea; Cough (hemoptysis at 0645 on 04/07) Cardiovascular: No: Chest Pain, Palpitations Gastrointestinal: No: Nausea, Vomiting, Abdominal Pain Genitourinary: No Retention Objective Exam Last Set of Vital Signs Vital Signs Date Time Temp Pulse Resp B/P (MAP) Pulse Ox O2 Delivery O2 Flow Rate FiO2 04/07/22 07:41 35.9 04/07/22 07:00 86 36 161/74 (103) 97 Vapotherm 30.00 100.00 04/07/22 06:59 100 Capillary Refill : Less Than 3 Seconds I&O Intake and Output 04/07/22 00:00 Intake Total 1455 ml Output Total 1775 ml Balance -320 ml Intake Oral 1180 ml IV Total 275 ml Output Urine Total 1775 ml General: Alert Lungs: Other (Diffuse coarse breath sounds, crackles noted in L lung franks) Heart: Regular Rate Abdomen: Normal Bowel Sounds, Soft, No Tenderness Extremities: Other (mild, chronic edema of R LE) Neuro: Normal Speech Results Lab Laboratory Tests 04/06/22 10:00: Blood Gas Puncture Site RT RAD, Blood Gas Patient Temperature 36.2, Arterial Blood pH 7.41, Arterial Blood Partial Pressure CO2 40, Arterial Blood Partial Pressure O2 65L, Arterial Blood HCO3 25, Arterial Blood Total CO2 26.2, Arterial Blood Oxygen Saturation 94, Arterial Blood Base Excess 0.6, Joshua Test NA, Blood Gas Ventilator Setting NO, Blood Gas Inspired Oxygen 90% 04/07/22 03:05: White Blood Count 19.4H, Red Blood Count 2.93L, Hemoglobin 9.2L, Hematocrit 30L, Mean Corpuscular Volume 101H, Mean Corpuscular Hemoglobin 31, Mean Corpuscular Hemoglobin Concent 31L, Red Cell Distribution Width 15.4H, Platelet Count 283, Mean Platelet Volume 10.6, Immature Granulocyte % (Auto) 1, Neutrophils (%) (Auto) 89H, Lymphocytes (%) (Auto) 5L, Monocytes (%) (Auto) 4, Eosinophils (%) (Auto) 0, Basophils (%) (Auto) 0, Neutrophils # (Auto) 17.4H, Lymphocytes # (Auto) 1.0, Monocytes # (Auto) 0.7, Eosinophils # (Auto) 0.0, Basophils # (Auto) 0.0, Immature Granulocyte # (Auto) 0.2H, Sodium Level 132L, Potassium Level 5.0, Chloride Level 102, Carbon Dioxide Level 17L, Anion Gap 13, Blood Urea Nitrogen 41H, Creatinine 0.95, Estimat Glomerular Filtration Rate 61, BUN/Creatinine Ratio 43, Glucose Level 102, Calcium Level 8.5, Corrected Calcium 9.3, Phosphorus Level 2.3, Magnesium Level 2.5H, Total Bilirubin 0.8, Aspartate Amino Transf (AST/SGOT) 29, Alanine Aminotransferase (ALT/SGPT) 43, Alkaline Phosphatase 62, Total Protein 5.7L, Albumin 3.0L 04/07/22 06:05: Prothrombin Time 46.3*H, INR Comment 5.0H Microbiology 04/05/22 MRSA Screen - Final, Complete MRSA not isolated Radiology NAME: MARTY MARION [facility] REC#: [id number] PT STATUS: ADM IN : 1945 PHYSICIAN: ALBERTO NAVARRO MD ADMIT DATE: 04/05/22/ICU Draft Date of Exam:04/07/22 CHEST 1 VIEW, AP/PA ONLY INDICATION: Hypoxia. TECHNIQUE: Single view chest 5:34 AM. CORRELATION STUDY: 04/05/2022 FINDINGS: Extensive mixed alveolar interstitial infiltrate-like opacities throughout both lung franks do persist. Overall likely slightly increased from prior. Lung bases incompletely imaged. Heart size and mediastinum are generally stable as is the vasculature. IMPRESSION: 1. Extensive 5 lobe pulmonary infiltrates again demonstrated and overall appears increased from prior. Dictated on workstation # [id number] Dict: 04/07/22 0809 Trans: 04/07/22 0817 [facility] [id number] Interpreted by: ROSAS PAGE DO Electronically signed by: Assessment/Plan Assessment/Plan Assess & Plan/Chief Complaint 1. Acute respiratory failure with hypoxia, Pneumonia, COVID + -BiPap therapy - currently 50%. Continue and wean as tolerated -> transitioned to vapotherm on 04/05 - 30.00 with FiO2 90% -> 04/07 vapotherm 30.00 with FiO2 100% -Albuterol breathing treatments - 4 puffs Q4H IH with RT -Decadron 6mg IV qd -Cefepime 1000mg - 50ml @ 100mls/hr Q6H IV for PNA -AM labs - CBC, BMP, INR -Continue PT -Hemoptysis on 04/07 - monitor Hgb, INR, and other signs of bleeding. Patient is not demonstrating signs of bleeding at this time. Likely secondary to viral infection but will monitor closely. 2. Atrial fibrillation vs. Heart failure -Continue telemetry and diltiazem therapy 125mg - 125ml @ 5mls/hr Q24h IV for rate control -Anti-coagulation for stroke prophylaxis - INR of 14.8. No anti-coagulation will be initiated at this time. Repeat INR this afternoon/evening. Patient is s/p Vitamin K 2.5mg therapy. Monitor Hbg with AM CBC/signs of bleeding -> INR 7.3 on 04/06 -Echocardiogram - CXR findings of enlarged cardiac silhouette, BNP of 454.3 -Consult Cardiology -> maintain diltiazem drip, monitor BP, consider Xarelto for anti-coagulation 3. Protein nutrition deficiency with total protein of 5.8 on 04/05, 5.8 on 04/06 -Protein dense diet as tolerated 4. Hyponatremia with Na of 132 on 04/05, 132 on 04/06, 132 on 04/07 -Monitor with AM BMP 5. Pain management - myalgia/arthritis -Lortab 5mg Q6H PO PRN 6. HTN -Monitor BP -Resume home medications - Norvasc 5mg PO qd, triamterene/ HCTZ 75-50 tablet PO qd -Hydralazine 5mg Q4H PRN IV for SBP >180, DBP >120 Clinical Quality Measures Admission Status Admission Dx 1. Acute respiratory failure with hypoxia, Pneumonia, COVID + -BiPap therapy - currently 50%. Continue and wean as tolerated -Albuterol breathing treatments - 4 puffs Q4H IH with RT -Decadron 6mg IV qd -Cefepime 1000mg - 50ml @ 100mls/hr Q6H IV for PNA -AM labs - CBC, BMP, INR 2. Atrial fibrillation vs. Heart failure -Continue telemetry and diltiazem therapy 125mg - 125ml @ 5mls/hr Q24h IV for rate control -Anti-coagulation for stroke prophylaxis - INR of 14.8. No anti-coagulation will be initiated at this time. Repeat INR this afternoon/evening. Patient is s/p Vitamin K 2.5mg therapy. Monitor Hbg with AM CBC/signs of bleeding -Echocardiogram - CXR findings of enlarged cardiac silhouette, BNP of 454.3 -Consult Cardiology 3. Protein nutrition deficiency with total protein of 5.8 on 04/05 -Protein dense diet as tolerated 4. Hyponatremia with Na of 132 on 04/05 -Monitor with AM BMP MICHAELLE BHATIA MD 04/07/22 1119: Assessment/Plan Assessment/Plan Assess & Plan/Chief Complaint Pt reports feeling a little better today. Did cough up some blood this morning once but has not since. Attributes it to her warfarin. Would like to get out of the bed today but refused PT this morning. Willing to work with them now. Discussed with PA laura Roberson, they will consider switching off cardizem gtt later today. Supervisory-Addendum Brief Verification & Attestation Participated in pt care: history, MDM, physical Personally performed: exam, history, MDM, supervision of care Care discussed with: Medical Student Procedures: n/a Results interpretation: Verified all documentation Verification and Attestation of Medical Student E/M Service A medical student performed and documented this service in my presence. I reviewed and verified all information documented by the medical student and made modifications to such information, when appropriate. I personally performed the physical exam and medical decision making. Michaelle Bhatia, Apr 07, 2022,11:22 ELMA PEACOCK Apr 07, 2022 09:05 MICHAELLE BHATIA MD Apr 07, 2022 11:19
--- NOTE | 2022-04-07 09:43 | Physical Therapy Progress Note ---
Therapy Progress Note Attempted physical therapy but patient refused. Patient refuses OOB activity and exercises in bed. Patient was educated on the importance of participating in therapy but she continues to refuse. Patient states she is a nervous wreck and isn't going to do it. Nurse notified. Nurse states that patient isn't doing very well today and don't bother coming back to try again. PT will come back and try again if able. LAURA HESTER PT Apr 07, 2022 09:43
[2022-04-07] MEDS ORDERED: SENNOSIDES 8.6 MG (SENOKOT) TAB PO PRN (10:15)
[2022-04-07] MEDS ORDERED: DOCUSATE SODIUM 100 MG (COLACE) CAP PO PRN (10:15)
--- NOTE | 2022-04-07 10:26 | Tele-ICU Progress Note ---
Subjective Date Seen by a Provider: Apr 07, 2022 Time Seen by a Provider: 10:20 Subjective/Events-last exam Available chart/ vitals / labs / Images reviewed Video assessment done using teleICU camera, rest of exam as per RN Discussed with RN Events overnight : hemoptyisis x1 Afebrile hemodynamically stable Respiratory - VT I/O = Drips: Pressors- no Consultants: Hospital course: (04/05) 77yr F admitted for Acute Respiratory Failure due to Covid 19. Patient wears home 02 at night but has been wearing it during the day. Her husbans tested positive for Flu and Covid (she was treated with Tamiflu and Paxlovid prophylactically). CXR showed central vascular congestion and she was given Lasix and Solu Medrol. Transferred to [place] ICU for increased 02 needs. 04/06 -OFF bopap , VT 30 L 90% , one dose of lasix 40 04/07 - VT 100% 40 L , hemoptyisis x1 A/P Acute ( on chronic) hypoxic resp failure -VT 30L 100%, one dose of lasix 40 given 04/06 with good UO 04/06 - worsenign -> BIPAP 04/07 - back to VT 100 40 L - will give additional lasix and increase steroids dose -hemoptyis x1 - follow closely A fib RVR -? 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 Dx not clear: asthma vs COPD, on br-dilators at home , ? NURYS Chronic back pain -controlled Hematuria 04/06 - cleared Lines : periph , (Central Line Necessity Reviewed) Butcher: + OG: Nutrition: Po Analgesia: Anxiety/ delirium VTE Prophylaxis: INR elevated Stress Ulcer Prophylaxis: PPI - on high dose steroids Plans in collaboration with bedside consultants and IM MDs. Discussed with RN to reach out if any questions or concerns A total of 33 minutes of critical care time was devoted to this patient today, required to treat and/or prevent further deterioration of critical care condition ( as above ) . I am remotely monitoring this patient from another state. I am unable to do the bedside exam, and history/physical and pertinent information is taken from other notes in the computer and bedside staff. Sepsis Event Evaluation Height, Weight, BMI Height: 5'8.00" Weight: 243lbs. 2.0oz. 110.988000ry; 39.92 BMI Method:Stated Exam Exam Patient acknowledged, consented, and participated in this virtual visit which was conducted using real time audio/video Vital Signs Date Time Temp Pulse Resp B/P (MAP) Pulse Ox O2 Delivery O2 Flow Rate FiO2 04/07/22 10:00 99 14 170/88 (115) 96 Vapotherm 30.00 100.00 04/07/22 09:37 101 162/86 04/07/22 09:00 85 30 169/76 (107) 97 Vapotherm 30.00 100.00 04/07/22 08:00 84 19 145/99 (114) 99 Vapotherm 30.00 100.00 04/07/22 07:41 35.9 04/07/22 07:00 86 36 161/74 (103) 97 Vapotherm 30.00 100.00 04/07/22 06:59 100 Vapotherm 30.00 100 04/07/22 06:53 80 04/07/22 06:37 Vapotherm 30.00 100.00 04/07/22 06:00 96 22 161/92 (115) 95 NIV Bilevel 30.00 60.00 04/07/22 05:00 81 27 154/84 (107) 94 NIV Bilevel 30.00 60.00 04/07/22 04:00 85 22 140/86 (104) 96 NIV Bilevel 30.00 60.00 04/07/22 04:00 93 NIV Bilevel 60 04/07/22 03:00 80 23 153/78 (103) 96 NIV Bilevel 30.00 60.00 04/07/22 02:40 80 22 96 60.00 04/07/22 02:00 76 16 151/79 (103) 96 NIV Bilevel 30.00 60.00 04/07/22 01:00 114 04/07/22 01:00 69 25 146/87 (106) 96 NIV Bilevel 30.00 60.00 04/07/22 00:00 85 16 136/69 (91) 95 NIV Bilevel 30.00 60.00 04/06/22 23:55 36.0 73 16 129/79 (96) 95 NIV Bilevel 30.00 60.00 04/06/22 23:54 95 NIV Bilevel 30.00 60 04/06/22 23:00 86 32 151/80 (103) 96 NIV Bilevel 30.00 60.00 04/06/22 22:13 84 19 98 60.00 04/06/22 22:00 85 18 133/71 (91) 98 NIV Bilevel 30.00 60.00 04/06/22 21:46 72 116/68 04/06/22 21:00 72 17 116/68 (84) 97 NIV Bilevel 30.00 60.00 04/06/22 20:00 72 17 98 NIV Bilevel 30.00 60.00 04/06/22 20:00 36.4 73 17 123/89 (100) 94 NIV Bilevel 30.00 60.00 04/06/22 19:49 93 NIV Bilevel 30.00 60 04/06/22 19:00 80 22 96 NIV Bilevel 30.00 04/06/22 19:00 97 04/06/22 18:52 86 24 97 60.00 04/06/22 16:30 103 18 119/86 (97) 93 NIV Bilevel 30.00 04/06/22 16:00 NIV Bilevel 30.00 04/06/22 16:00 94 NIV Bilevel 30.00 60 04/06/22 15:44 35.9 04/06/22 15:00 Vapotherm 30.00 50.00 04/06/22 14:59 97 30 97 50.00 04/06/22 14:00 86 9 131/97 (108) 93 Vapotherm 30.00 90.00 04/06/22 12:42 83 04/06/22 12:00 36.2 04/06/22 12:00 96 Vapotherm 30.00 90 04/06/22 11:00 92 18 97 Vapotherm 30.00 90.00 04/06/22 10:45 96 Vapotherm 30.00 90 I & O 04/07/22 07:00 Intake Total 1425 ml Output Total 1825 ml Balance -400 ml Height & Weight Height: 5'8.00" Weight: 243lbs. 2.0oz. 110.143614em; 39.92 BMI Method:Stated General Appearance: No Apparent Distress (patient tolerating BiPap therapy well) Respiratory: No Accessory Muscle Use, Decreased Breath Sounds (bilaterally), Rhonci (bilateral), Wheezing (bilateral, more prominent on left ) Cardiovascular: Other (distant heart sounds, R LE +1 edema patient reports is chronic) Capillary Refill: Less Than 3 Seconds Extremity: Other (R LE edema +1) Neurologic/Psychiatric: Alert, Normal Mood/Affect Skin: Normal Color, Warm/Dry Results Lab Laboratory Tests 04/06/22 04:41 04/07/22 03:05 Assessment/Plan Assessment/Plan 1 ALBERTO NAVARRO MD Apr 07, 2022 10:26
[2022-04-07] MEDS: HYDROcodone/APAP 5 MG/325 MG (LORTAB) TAB PO PRN ×2 (10:39→17:56)
[2022-04-07] MEDS ORDERED: FUROSEMIDE 40 MG/4 ML INJ (LASIX) IVP ONE (10:45)
[2022-04-07] MEDS: methylPREDNISolone 125 MG (Solu-MEDROL) VIAL IVP SCH ×2 (11:23→17:56)
--- NOTE | 2022-04-07 11:49 | Physical Therapy Progress Note ---
Therapy Progress Note Attempted physical therapy again but patient refused again. Explained to patient that OOB activity will help her lungs and that is what she especially needs right now. Patient states she understands but still refuses OOB activity or LE exercises in bed. Patient states "I don't know when I will do physical therapy but I will do it before I leave". LAURA HESTER PT Apr 07, 2022 11:49
--- NOTE | 2022-04-07 12:01 | Cardiology Progress Note ---
Subjective Date Seen by Provider: Apr 07, 2022 Time Seen by Provider: 09:00 Subjective/Events-last exam Patient is in bed, continues to have shortness of breath. Denies any chest pain. Objective-Cardiology Exam Last Set of Vital Signs Vital Signs 04/07/22 04/07/22 16:00 16:39 Temp 36.0 Pulse 106 Resp 36 B/P (MAP) 190/114 (139) Pulse Ox 91 O2 Delivery Vapotherm O2 Flow Rate 30.00 100.00 FiO2 100 I&O Intake and Output 04/07/22 00:00 Intake Total 1455 ml Output Total 1775 ml Balance -320 ml Intake Oral 1180 ml IV Total 275 ml Output Urine Total 1775 ml General: Alert HEENT: Atraumatic Neck: Supple Lungs: Other (Diffuse coarse breath sounds, crackles noted in L lung franks) Heart: Regular Rate Abdomen: Normal Bowel Sounds, Soft, No Tenderness Extremities: Other (mild, chronic edema of R LE) Skin: No Rashes Neuro: Normal Speech Psych/Mental Status: Other (Oriented to person) Results Lab Laboratory Tests 04/07/22 03:05 A/P-Cardiology Admission Diagnosis Acute respiratory failure COVID-19 pneumonia Atrial fibrillation Coumadin toxicity Assessment/Plan Acute respiratory failure with diffuse pulmonary infiltrate on chest x-ray r epresenting pneumonia Currently on Vapotherm, managed by medical team COVID-19 pneumonia. Continue to monitor Atrial fibrillation with rapid ventricular response, new onset. Heart rate better controlled, I will change to oral Cardizem. [id number] score 5, patient will require oral anticoagulation as an outpatient She has been maintained on Coumadin as an outpatient. We will consider using Xa relto History of peripheral arterial disease, intolerant/allergy to Plavix. Maintained on Coumadin, currently having Coumadin toxicity Coumadin toxicity with INR 14, received 10 mg of vitamin K and [place] [facility] [place] INR on April 07, 2022 is 5 No signs of active bleeding, will continue monitoring and give FFP as needed Continue to monitor daily INR Hypertension, continue to monitor blood pressure Hyperlipidemia, intolerant to statin. COPD. Supervisory-Addendum Brief Supervisory Addendum Participated in pt care: history, MDM, physical Personally performed: exam, history, MDM Care discussed with: EDWINA Results interpretation: Verified all documentation Notes: Patient was seen and evaluated with Derrick, examination performed, management plan was discussed, agree with the current scribed note, I made few changes to the note using Italic font Patient was seen at bedside, still having significant dyspnea Responding well to treatment Continue to monitor. DERRICK NOBLES Apr 07, 2022 12:01 LELE POND MD Apr 07, 2022 17:07
[2022-04-07] MEDS: hydrALAZINE (APESOLINE) 20 MG/ML VIAL IV PRN (16:38)
[2022-04-07 22:59] LABS: ABG BASE EXCESS 0.9 MMOL/L (-2.5-2.5); ABG OXYGEN SATURATION 95 % (94-100); ABG PCO2 44 MMHG (35-45); ABG PH 7.38 (7.37-7.43); ABG PO2 73 MMHG (79-93)
[2022-04-07 23:01] VITALS: BP 138/68
[2022-04-07 23:01] LABS: ALLENS TEST NEGATIVE; VENTILATOR NO
[2022-04-08] MEDS: CEFEPIME INJECTION 1,000 MG in NS (IVPB) 50 ML IV SCH ×5 (01:15→23:19)
[2022-04-08] MEDS: methylPREDNISolone 125 MG (Solu-MEDROL) VIAL IVP SCH ×5 (01:16→23:19)
[2022-04-08] MEDS: DexMEDEtomidine 250 ML DRIP 250 ML IV SCH (01:50)
[2022-04-08 03:21] VITALS: BP 92/55
[2022-04-08] MEDS: RT-ALBUTEROL HFA 8.5 GM INHALER IH SCH ×6 (03:23→22:46)
[2022-04-08 04:55] LABS: BASOPHILS % (AUTO) 0 % (0-10); EOSINOPHILS % (AUTO) 0 % (0-10); HEMATOCRIT 28 % (35-52); LYMPHOCYTES # (AUTO) 0.6 10^3/uL (1.0-4.0); LYMPHOCYTES % (AUTO) 3 % (12-44); MEAN CORPUSCULAR HEMOGLOBIN 32 pg (25-34); MEAN CORPUSCULAR HGB CONC 32 g/dL (32-36); MEAN CORPUSCULAR VOLUME 99 fL (80-99); MEAN PLATELET VOLUME 10.3 fL (9.0-12.2); MONOCYTES # (AUTO) 0.5 10^3/uL (0.0-1.0); MONOCYTES % (AUTO) 3 % (0-12); NEUTROPHILS # (AUTO) 15.8 10^3/uL (1.8-7.8); NEUTROPHILS % (AUTO) 92 % (42-75); PLATELET COUNT 334 10^3/uL (130-400); WHITE BLOOD COUNT 17.1 10^3/uL (4.3-11.0)
[2022-04-08] MEDS: MAGNESIUM 1 GM/100 ML IVPB 100 ML IV SCH (04:58)
[2022-04-08] MEDS: POTASSIUM CL 10MEQ/50ML IVPB 50 ML IV SCH (04:58)
[2022-04-08] MEDS: KCL 20 MEQ TAB (K-DUR) PO SCH (04:59)
[2022-04-08 05:05] LABS: INR 3.8 (0.8-1.4); PROTHROMBIN TIME PATIENT 37.7 SEC (12.2-14.7)
[2022-04-08 05:11] LABS: ALBUMIN 3.1 GM/DL (3.2-4.5); POTASSIUM 5.2 MMOL/L (3.6-5.0)
[2022-04-08 05:12] LABS: CALCIUM 8.8 MG/DL (8.5-10.1)
[2022-04-08 05:14] LABS: TOTAL PROTEIN 5.7 GM/DL (6.4-8.2)
[2022-04-08 05:15] LABS: BILIRUBIN,TOTAL 0.9 MG/DL (0.1-1.0)
[2022-04-08 05:17] LABS: CREATININE SERUM 1.06 MG/DL (0.60-1.30); PHOSPHORUS 2.8 MG/DL (2.3-4.7)
[2022-04-08 05:20] LABS: MAGNESIUM 2.7 MG/DL (1.6-2.4)
[2022-04-08] MEDS: MULTIVIT W/MINERALS TAB (THERAGRAN M) PO SCH (05:45)
[2022-04-08 07:37] VITALS: BP 129/81
--- NOTE | 2022-04-08 08:29 | Cardiology Progress Note ---
Subjective Date Seen by Provider: Apr 08, 2022 Time Seen by Provider: 08:27 Subjective/Events-last exam Patient was seen at bedside, laying down comfortably Review of Systems General: No Chills, No Night Sweats; Fatigue, Malaise; No Appetite, No Other HEENT: No Head Aches, No Visual Changes, No Eye Pain, No Ear Pain, No Dysphasia, No Sinus Congestion, No Post Nasal Drip, No Sore Throat, No Other Pulmonary: Dyspnea; No Cough, No Pleuritic Chest Pain, No Other Cardiovascular: No: Chest Pain, Palpitations, Orthopnea, Paroxysmal Noc. Dyspnea, Edema, Lt Headedness, Other Objective-Cardiology Exam Last Set of Vital Signs Vital Signs 04/08/22 04/08/22 04/08/22 00:00 04:00 08:00 Temp 36.0 Pulse 124 Resp 20 B/P (MAP) 124/77 (93) Pulse Ox 94 O2 Delivery NIV Bilevel O2 Flow Rate 75.00 FiO2 75 I&O Intake and Output 04/08/22 00:00 Intake Total 1045 ml Output Total 2075 ml Balance -1030 ml Intake Oral 895 ml IV Total 150 ml Output Urine Total 2075 ml General: Alert HEENT: Atraumatic Neck: Supple Lungs: Other (Diffuse coarse breath sounds, crackles noted in L lung franks) Heart: Regular Rate Extremities: Other (mild, chronic edema of R LE) Skin: No Rashes Neuro: Normal Speech Psych/Mental Status: Other (Oriented to person) Results Lab Laboratory Tests 04/08/22 04:15 A/P-Cardiology Admission Diagnosis Acute respiratory failure COVID-19 pneumonia Atrial fibrillation Coumadin toxicity Assessment/Plan Acute respiratory failure with diffuse pulmonary infiltrate on chest x-ray representing pneumonia Back on BiPAP COVID-19 pneumonia. Managed by primary care team Atrial fibrillation with rapid ventricular response, new onset. Heart rate is better controlled Tolerating oral Cardizem [id number] score 5, patient will require oral anticoagulation as an outpatient She has been maintained on Coumadin as an outpatient. We will consider using Xarelto History of peripheral arterial disease, intolerant/allergy to Plavix. Maintained on Coumadin, currently having Coumadin toxicity Coumadin toxicity with INR 14, received 10 mg of vitamin K and [place] [facility] [place] INR on April 08, 2022 is 3.8 No signs of active bleeding, will continue monitoring and give FFP as needed Continue to monitor daily INR Hypertension, continue to monitor blood pressure Hyperlipidemia, intolerant to statin. COPD. LELE POND MD Apr 08, 2022 08:29
--- NOTE | 2022-04-08 08:47 | Progress Note ---
CARLOS PEACOCKA 04/08/22 0847: Subjective Date Seen by a Provider: Apr 08, 2022 Time Seen by a Provider: 07:40 Subjective/Events-last exam Ms. Felpie is a 77 year old female with a PMHx of HTN, arthritis, and PAD with Coumadin therapy who presents with acute on chronic respiratory failure with hypoxia and is COVID positive. Per nursing report, patient began demonstrating confusion last night with SpO2 in the 80s and was placed on BiPap from vapotherm. Patient continued to demonstrate confusion/agitation and a Precedex drip was initiated as well as safety precautions to mitigate fall risk and protect IV sites. During this time patient was tachycardic, likely due to atrial fibrillation. Patient continues to have an irregular rate and rhythm this morning. This morning patient was resting calmly in bed with BiPap. Patient reported head ache, abdominal pain, and nausea. Patient denied CP, SOA, vomiting, diarrhea, or constipation. Patient's Hgb is stable at 9.0, and INR has decreased to 3.8. Patient is exhibiting tachycardia and decreased blood pressures, but this is likely due to a fib rather than a bleeding event. Will continue to closely monitor the patient. The patient's most recent BP was 124/77, further supporting tachycardia secondary to a fib. Patient was transitioned to Cardizem 30mg PO Q6H on 04/07 when previously receiving Cardizem drip. Review of Systems HEENT: Head Aches Pulmonary: No Dyspnea Cardiovascular: No: Chest Pain Gastrointestinal: Nausea, Abdominal Pain; No: Vomiting, Diarrhea, Constipation Objective Exam Last Set of Vital Signs Vital Signs Date Time Temp Pulse Resp B/P (MAP) Pulse Ox O2 Delivery O2 Flow Rate FiO2 04/08/22 08:00 124 20 124/77 (93) 94 NIV Bilevel 75.00 04/08/22 04:00 75 04/08/22 00:00 36.0 Capillary Refill : Less Than 3 Seconds I&O Intake and Output 04/08/22 00:00 Intake Total 1045 ml Output Total 2075 ml Balance -1030 ml Intake Oral 895 ml IV Total 150 ml Output Urine Total 2075 ml General: Cooperative Lungs: Other (coarse breath sounds bilaterally. No wheezing) Heart: Other (distant heart sounds) Abdomen: Normal Bowel Sounds, Soft, No Tenderness Extremities: Other (trace R LE edema - chronic) Results Lab Laboratory Tests 04/07/22 22:50: Blood Gas Puncture Site LRAD, Blood Gas Patient Temperature 36.0, Arterial Blood pH 7.38, Arterial Blood Partial Pressure CO2 44, Arterial Blood Partial Pressure O2 73L, Arterial Blood HCO3 26, Arterial Blood Total CO2 27.0, Arterial Blood Oxygen Saturation 95, Arterial Blood Base Excess 0.9, Joshua Test NEGATIVE, Blood Gas Ventilator Setting NO, Blood Gas Inspired Oxygen 55% 04/08/22 04:15: White Blood Count 17.1H, Red Blood Count 2.86L, Hemoglobin 9.0L, Hematocrit 28L, Mean Corpuscular Volume 99, Mean Corpuscular Hemoglobin 32, Mean Corpuscular Hemoglobin Concent 32, Red Cell Distribution Width 15.1H, Platelet Count 334, Mean Platelet Volume 10.3, Immature Granulocyte % (Auto) 2, Neutrophils (%) (Auto) 92H, Lymphocytes (%) (Auto) 3L, Monocytes (%) (Auto) 3, Eosinophils (%) (Auto) 0, Basophils (%) (Auto) 0, Neutrophils # (Auto) 15.8H, Lymphocytes # (Auto) 0.6L, Monocytes # (Auto) 0.5, Eosinophils # (Auto) 0.0, Basophils # (Auto) 0.0, Immature Granulocyte # (Auto) 0.3H, Prothrombin Time 37.7H, INR Comment 3.8H, Sodium Level 134L, Potassium Level 5.2H, Chloride Level 100, Carbon Dioxide Level 23, Anion Gap 11, Blood Urea Nitrogen 48H, Creatinine 1.06, Estimat Glomerular Filtration Rate 54, BUN/Creatinine Ratio 45, Glucose Level 146H, Calcium Level 8.8, Corrected Calcium 9.5, Phosphorus Level 2.8, Magnesium Level 2.7H, Total Bilirubin 0.9, Aspartate Amino Transf (AST/SGOT) 20, Alanine Aminotransferase (ALT/SGPT) 40, Alkaline Phosphatase 55, Total Protein 5.7L, Albumin 3.1L Microbiology 04/05/22 MRSA Screen - Final, Complete MRSA not isolated Assessment/Plan Assessment/Plan Assess & Plan/Chief Complaint 1. Acute respiratory failure with hypoxia, Pneumonia, COVID + -BiPap therapy - currently 50%. Continue and wean as tolerated -> transitioned to vapotherm on 04/05 - 30.00 with FiO2 90% -> 04/07 vapotherm 30.00 with FiO2 100% -> BiPap 75% on 04/08 -> vapotherm 75% on 04/08 -Albuterol breathing treatments - 4 puffs Q4H IH with RT -Decadron 6mg IV qd -Cefepime 1000mg - 50ml @ 100mls/hr Q6H IV for PNA -AM labs - CBC, BMP, INR -Hemoptysis on 04/07 - monitor Hgb, INR, and other signs of bleeding. Patient is not demonstrating signs of bleeding at this time. Likely secondary to viral infection but will monitor closely. -PT 2. Atrial fibrillation vs. Heart failure -Continue telemetry and diltiazem therapy 125mg - 125ml @ 5mls/hr Q24h IV for rate control -> transitioned to Cardizem 30mg PO Q6H on 04/07 -Anti-coagulation for stroke prophylaxis - INR of 14.8. No anti-coagulation will be initiated at this time. Repeat INR this afternoon/evening. Patient is s/p Vitamin K 2.5mg therapy. Monitor Hbg with AM CBC/signs of bleeding -> INR 7.3 on 04/06 -> 5.0 on 04/07 -> 3.8 on 04/08. Consider restarting warfarin therapy or beginning Eliquis 5mg PO BID once INR is 2-3 -Echocardiogram - CXR findings of enlarged cardiac silhouette, BNP of 454.3 -Consult Cardiology -> monitor HR and BP. Continue oral Cardizem 3. Protein nutrition deficiency with total protein of 5.8 on 04/05, 5.8 on 04/06 -Protein dense diet as tolerated 4. Hyponatremia with Na of 132 on 04/05, 132 on 04/06, 132 on 04/07, 134 on 04/08 -Monitor with AM BMP 5. Pain management - myalgia/arthritis -Lortab 5mg Q6H PO PRN 6. HTN -Monitor BP -Resume home medications - Norvasc 5mg PO qd, triamterene/ HCTZ 75-50 tablet PO qd -Hydralazine 5mg Q4H PRN IV for SBP >180, DBP >120 7. Hyperkalemia - 5.2 on 04/08 -Monitor with AM BMP Clinical Quality Measures Admission Status Admission Dx 1. Acute respiratory failure with hypoxia, Pneumonia, COVID + -BiPap therapy - currently 50%. Continue and wean as tolerated -Albuterol breathing treatments - 4 puffs Q4H IH with RT -Decadron 6mg IV qd -Cefepime 1000mg - 50ml @ 100mls/hr Q6H IV for PNA -AM labs - CBC, BMP, INR 2. Atrial fibrillation vs. Heart failure -Continue telemetry and diltiazem therapy 125mg - 125ml @ 5mls/hr Q24h IV for rate control -Anti-coagulation for stroke prophylaxis - INR of 14.8. No anti-coagulation will be initiated at this time. Repeat INR this afternoon/evening. Patient is s/p Vitamin K 2.5mg therapy. Monitor Hbg with AM CBC/signs of bleeding -Echocardiogram - CXR findings of enlarged cardiac silhouette, BNP of 454.3 -Consult Cardiology 3. Protein nutrition deficiency with total protein of 5.8 on 04/05 -Protein dense diet as tolerated 4. Hyponatremia with Na of 132 on 04/05 -Monitor with AM BMP MICHAELLE FRANCO MD 04/08/22 1053: Assessment/Plan Assessment/Plan Assess & Plan/Chief Complaint Patient appeared to have a rough night last night necessitating BiPAP. She did not tolerate this well and multiple times attempted to remove all of her oxygen tubes and wires and pulled the BiPAP off. She ultimately ended up on Precedex and was able to tolerate it after that. She is quite confused to this morning and believes it is 1996 and that she is in [facility]. She does know her name and that her is at her bedside though. I discussed with the patient that she is still in quite a precarious situation and she will remain in the ICU on Vapotherm and BiPAP as needed. I did discuss with her and her that mechanical ventilation may be necessary should she worsen. They both expressed understanding of this but are hopeful she will improve. Supervisory-Addendum Brief Verification & Attestation Participated in pt care: history, MDM, physical Personally performed: exam, history, MDM, supervision of care Care discussed with: Medical Student Procedures: n/a Results interpretation: Verified all documentation Verification and Attestation of Medical Student E/M Service A medical student performed and documented this service in my presence. I reviewed and verified all information documented by the medical student and made modifications to such information, when appropriate. I personally performed the physical exam and medical decision making. Michaelle Franco, Apr 08, 2022,10:51 ELMA PEACOCK Apr 08, 2022 08:47 MICHAELLE FRANCO MD Apr 08, 2022 10:53
[2022-04-08] MEDS: FOLIC ACID 1 MG TAB PO SCH (09:20)
[2022-04-08] MEDS: LORATADINE (CLARITIN) 10 MG TAB PO SCH (09:20)
[2022-04-08] MEDS: PANTOPRAZOLE 40 MG (PROTONIX) VIAL IV SCH (09:21)
[2022-04-08] MEDS: amLODIPine 5 MG (NORVASC) TAB PO SCH ×2 (09:21→11:01)
--- NOTE | 2022-04-08 10:57 | Physical Therapy Daily Note ---
PT Daily Note-Current Subjective Patient is mildly confused. Spouse present. Pain Section J - Health Conditions 1. Rarely or not at all 2. Occasionally 3. Frequently 4. Almost constantly 8. Unable to answer Pain Effect on Sleep: 8 Pain Interference with Therapy: 8 Pain Interference w/Day-to-Day: 8 Mental Status Patient Orientation: Person, Situation Attachments: Oxygen (vapotherm 100%), Butcher Catheter, IV Transfers SCALE: Activities may be completed with or without assistive devices. 3-Psxxcqfscu-yzjqrsz completes the activity by him/herself with no assistance from a helper. 5-Set-up or Clean-up Assistance-helper sets up or cleans up; patient completes activity. [place] assists only prior to or following the activity. 4-Supervision or Touching Assistance-helper provides verbal cues and/or touchin g/steadying and/or contact guard assistance as patient completes activity. Assistance may be provided throughout the activity or intermittently. 3-Partial/Moderate Assistance-helper does LESS THAN HALF the effort. [place] lifts, holds or supports trunk or limbs, but provides less than half the effort. 2-Substantial/Maximal Assistance-helper does MORE THAN HALF the effort. [place] lifts or holds trunk or limbs and provides more than half the effort. 3-Bjrhzlnwr-suyixo does ALL the effort. Patient does none of the effort to complete the activity. Or, the assistance of 2 or more helpers is required for the patient to complete the activity. If activity was not attempted, code reason: 7-Patient Refused. 9-Not Applicable-not attempted and the patient did not perform the activity before the current illness, exacerbation or injury. 10-Not Attempted due to Environmental Limitations-(lack of equipment, weather restraints, etc.). 88-Not Attempted due to Medical Conditions or Safety Concerns. Lying to Sitting/Side of Bed(Q: 2 Sit to Stand (QC): 2 Chair/Cuo-gn-Lkntm Xfer(QC): 2 Gait Training Does the Patient Walk?: No and Walking Goal IS indicated Assessment Patient tolerates minimal activity and is up in recliner with needs met. SAO2 decreased to 88% with activity with recovery to 90%. RN is aware. Spouse remains in room with patient. 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 Plant Control Operator Goals 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 Time Frame: May 01, 2022 Roll Left & Right (QC): 6 Sit to Lying (QC): 6 Lying-Sitting on Side/Bed(QC): 6 Sit to Stand (QC): 6 Chair/Avj-di-Giteb Xfer(QC): 6 Toilet Transfer (QC): 6 Walk 10 feet (QC): 4 Walk 50ft with 2 Turns (QC): 4 PT Plan Treatment/Plan Treatment Plan: Continue Plan of Care Treatment Plan: Bed Mobility, Education, Functional Activity [place], Functional Strength, Gait, Safety, Therapeutic Exercise, Transfers Treatment Duration: May 01, 2022 Frequency: 6 times per week Estimated Hrs Per Day: .25 hour per day Patient and/or Family Agrees t: Yes Time Time In: 1030 Time Out: 1044 DATE: Apr 08, 2022 Total Billed Treatment Time: 14 Total Billed Treatment 1 visit FA 14 min LYDIA SOSA PT Apr 08, 2022 10:57
[2022-04-08] MEDS: TRIAMTERENE/HCTZ 75-50 (MAXZIDE,DYAZIDE) TABLET PO SCH (11:01)
--- NOTE | 2022-04-08 11:11 | Tele-ICU Progress Note ---
Subjective Date Seen by a Provider: Apr 08, 2022 Time Seen by a Provider: 11:11 Subjective/Events-last exam Available chart/ vitals / labs / Images reviewed Video assessment done using teleICU camera, rest of exam as per RN Discussed with RN Events overnight : hemoptyisis x1 Afebrile hemodynamically stable Respiratory - VT I/O = Drips: Pressors- no Consultants: Hospital course: (04/05) 77yr F admitted for Acute Respiratory Failure due to Covid 19. Patient wears home 02 at night but has been wearing it during the day. Her husbans tested positive for Flu and Covid (she was treated with Tamiflu and Paxlovid prophylactically). CXR showed central vascular congestion and she was given Lasix and Solu Medrol. Transferred to [facility] ICU for increased 02 needs. 04/06 -OFF bopap , VT 30 L 90% , one dose of lasix 40 04/07 - VT 100% 40 L , hemoptyisis x1 04/08 - VT 35% 100% A/P Acute ( on chronic) hypoxic resp failure -VT 30L 100%, one dose of lasix 40 given 04/06 with good UO 04/06 - worsenign -> BIPAP 04/07 - back to VT 100 40 L - will give additional lasix and increase steroids dose -hemoptyis x1 04/07 - follow closely A fib RVR -? 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 Dx not clear: asthma vs COPD, on br-dilators at home , ? NURYS Chronic back pain -controlled Hematuria 04/06 - cleared Lines : periph , (Central Line Necessity Reviewed) Butcher: + OG: Nutrition: Po Analgesia: Anxiety/ delirium VTE Prophylaxis: INR elevated Stress Ulcer Prophylaxis: PPI - on high dose steroids Plans in collaboration with bedside consultants and IM MDs. Discussed with RN to reach out if any questions or concerns A total of 33 minutes of critical care time was devoted to this patient today, required to treat and/or prevent further deterioration of critical care condition ( as above ) . I am remotely monitoring this patient from another state. I am unable to do the bedside exam, and history/physical and pertinent information is taken from other notes in the computer and bedside staff. Sepsis Event Evaluation Height, Weight, BMI Height: 5'8.00" Weight: 243lbs. 2.0oz. [id number]; 39.92 BMI Method:Stated Exam Exam Patient acknowledged, consented, and participated in this virtual visit which was conducted using real time audio/video Vital Signs Date Time Temp Pulse Resp B/P (MAP) Pulse Ox O2 Delivery O2 Flow Rate FiO2 04/08/22 11:00 112 39 123/77 (92) 98 Vapotherm 35.00 100.00 04/08/22 10:53 96 Vapotherm 35.00 100 04/08/22 10:00 100 25 129/93 (105) 95 Vapotherm 35.00 100.00 04/08/22 09:30 95 Vapotherm 35.00 100.00 04/08/22 09:00 80 16 109/84 (92) 94 NIV Bilevel 75.00 04/08/22 08:00 124 20 124/77 (93) 94 NIV Bilevel 75.00 04/08/22 08:00 96 NIV Bilevel 75 04/08/22 07:37 102 23 96 60.00 04/08/22 07:27 118 04/08/22 07:00 102 22 100/85 (90) 99 NIV Bilevel 75.00 04/08/22 06:00 70 17 100/48 (65) 97 NIV Bilevel 75.00 04/08/22 05:50 95 139/70 04/08/22 05:00 95 21 139/70 (93) 96 NIV Bilevel 75.00 04/08/22 04:59 116 139/70 04/08/22 04:00 85 22 118/70 (86) 95 NIV Bilevel 75.00 04/08/22 04:00 96 NIV Bilevel 75 04/08/22 03:36 NIV Bilevel 75.00 04/08/22 03:21 72 18 96 75.00 04/08/22 03:00 73 18 92/55 (67) 98 NIV Bilevel 80.00 04/08/22 02:00 95 15 121/78 (92) 98 NIV Bilevel 80.00 04/08/22 01:50 110 128/66 04/08/22 01:00 96 21 134/61 (85) 99 NIV Bilevel 80.00 04/08/22 01:00 107 04/08/22 00:00 36.0 04/08/22 00:00 89 16 111/50 (70) 99 NIV Bilevel 80.00 04/07/22 23:59 99 NIV Bilevel 80 04/07/22 23:20 NIV Bilevel 80.00 04/07/22 23:01 90 17 99 90.00 04/07/22 23:00 90 14 138/66 (90) 97 NIV Bilevel 60.00 04/07/22 22:40 NIV Bilevel 55.00 04/07/22 22:00 107 22 102/64 (77) 97 Vapotherm 30.00 100.00 04/07/22 21:00 93 28 96 Vapotherm 30.00 100.00 04/07/22 20:00 106 21 131/73 (92) 97 Vapotherm 30.00 100.00 04/07/22 20:00 93 Vapotherm 30.00 100 04/07/22 19:57 95 Vapotherm 35.00 100 04/07/22 19:20 35.6 97 32 96/70 (79) 95 Vapotherm 30.00 100.00 04/07/22 19:00 105 04/07/22 19:00 88 16 132/66 (88) 97 Vapotherm 30.00 100.00 04/07/22 18:00 96 47 93 Vapotherm 30.00 100.00 04/07/22 17:00 124 29 140/93 (109) 90 Vapotherm 30.00 100.00 04/07/22 16:39 36.0 04/07/22 16:00 106 36 190/114 (139) 91 Vapotherm 30.00 100.00 04/07/22 16:00 96 Vapotherm 30.00 100 04/07/22 15:46 36.0 04/07/22 15:22 95 Vapotherm 30.00 100 04/07/22 15:00 97 25 137/80 (99) 96 Vapotherm 30.00 100.00 04/07/22 14:00 93 27 145/86 (105) 94 Vapotherm 30.00 100.00 04/07/22 13:00 97 25 159/74 (102) 94 Vapotherm 30.00 100.00 04/07/22 12:20 89 04/07/22 12:00 36.1 04/07/22 12:00 97 Vapotherm 30.00 100 04/07/22 12:00 81 25 155/80 (105) 95 Vapotherm 30.00 100.00 I & O 04/08/22 07:00 Intake Total 925 ml Output Total 2050 ml Balance -1125 ml Height & Weight Height: 5'8.00" Weight: 243lbs. 2.0oz. [id number]; 39.92 BMI Method:Stated General Appearance: No Apparent Distress (patient tolerating BiPap therapy well) Respiratory: No Accessory Muscle Use, Decreased Breath Sounds (bilaterally), Rhonci (bilateral), Wheezing (bilateral, more prominent on left ) Cardiovascular: Other (distant heart sounds, R LE +1 edema patient reports is chronic) Capillary Refill: Less Than 3 Seconds Extremity: Other (R LE edema +1) Neurologic/Psychiatric: Alert, Normal Mood/Affect Skin: Normal Color, Warm/Dry Results Lab Laboratory Tests 04/07/22 03:05 04/08/22 04:15 Assessment/Plan Assessment/Plan 1 ALBERTO NAVARRO MD Apr 08, 2022 11:11
[2022-04-08] MEDS: HYDROcodone/APAP 5 MG/325 MG (LORTAB) TAB PO PRN (14:00)
[2022-04-08 22:46] VITALS: BP 134/113
[2022-04-08] MEDS: NS IV 1000 ML 1,000 ML IV SCH (23:12)
[2022-04-08] MEDS: fentaNYL INJ 100 MCG/2 ML AMP IVP PRN (23:19)
[2022-04-09] VITALS (7 sets, daily range): BP systolic 128–158; BP diastolic 79–117
[2022-04-09] MEDS: RT-ALBUTEROL HFA 8.5 GM INHALER IH SCH ×6 (03:00→22:40)
[2022-04-09] MEDS: hydrALAZINE (APESOLINE) 20 MG/ML VIAL IV PRN (04:35)
[2022-04-09] MEDS: MAGNESIUM 1 GM/100 ML IVPB 100 ML IV SCH (06:13)
[2022-04-09] MEDS: KCL 20 MEQ TAB (K-DUR) PO SCH (06:13)
[2022-04-09] MEDS: POTASSIUM CL 10MEQ/50ML IVPB 50 ML IV SCH (06:13)
[2022-04-09] MEDS: CEFEPIME INJECTION 1,000 MG in NS (IVPB) 50 ML IV SCH ×3 (06:26→18:15)
[2022-04-09] MEDS: methylPREDNISolone 125 MG (Solu-MEDROL) VIAL IVP SCH ×4 (06:27→23:28)
[2022-04-09 06:43] LABS: ABG BASE EXCESS 1.1 MMOL/L (-2.5-2.5); ABG OXYGEN SATURATION 100 % (94-100); ABG PCO2 40 MMHG (35-45); ABG PH 7.42 (7.37-7.43); ABG PO2 222 MMHG (79-93); ABG TCO2 26.6 MMOL/L (21.0-31.0)
[2022-04-09 06:52] LABS: ALLENS TEST YES-POS; INSPIRED O2 100%; PATIENT TEMP 36; VENTILATOR NO
[2022-04-09] MEDS: amLODIPine 5 MG (NORVASC) TAB PO SCH (08:16)
[2022-04-09] MEDS: FOLIC ACID 1 MG TAB PO SCH (08:16)
[2022-04-09] MEDS: LORATADINE (CLARITIN) 10 MG TAB PO SCH (08:16)
[2022-04-09] MEDS: TRIAMTERENE/HCTZ 75-50 (MAXZIDE,DYAZIDE) TABLET PO SCH (08:16)
[2022-04-09] MEDS: PANTOPRAZOLE 40 MG (PROTONIX) VIAL IV SCH (08:16)
[2022-04-09] MEDS: MULTIVIT W/MINERALS TAB (THERAGRAN M) PO SCH ×2 (08:16→08:26)
[2022-04-09 08:30] LABS: BASOPHILS % (AUTO) 0 % (0-10); EOSINOPHILS % (AUTO) 0 % (0-10); HEMATOCRIT 28 % (35-52); HEMOGLOBIN 8.8 g/dL (11.5-16.0); LYMPHOCYTES # (AUTO) 0.3 10^3/uL (1.0-4.0); LYMPHOCYTES % (AUTO) 2 % (12-44); MEAN CORPUSCULAR HEMOGLOBIN 31 pg (25-34); MEAN CORPUSCULAR HGB CONC 32 g/dL (32-36); MEAN CORPUSCULAR VOLUME 99 fL (80-99); MEAN PLATELET VOLUME 10.1 fL (9.0-12.2); MONOCYTES # (AUTO) 0.6 10^3/uL (0.0-1.0); MONOCYTES % (AUTO) 3 % (0-12); NEUTROPHILS # (AUTO) 16.2 10^3/uL (1.8-7.8); NEUTROPHILS % (AUTO) 92 % (42-75); PLATELET COUNT 376 10^3/uL (130-400); WHITE BLOOD COUNT 17.5 10^3/uL (4.3-11.0)
[2022-04-09 08:50] LABS: ALBUMIN 3.1 GM/DL (3.2-4.5); INR 3.8 (0.8-1.4); POTASSIUM 5.4 MMOL/L (3.6-5.0)
[2022-04-09 08:51] LABS: CALCIUM 9.3 MG/DL (8.5-10.1)
[2022-04-09 08:52] LABS: TOTAL PROTEIN 5.7 GM/DL (6.4-8.2)
[2022-04-09 08:54] LABS: BILIRUBIN,TOTAL 1.1 MG/DL (0.1-1.0)
[2022-04-09 08:56] LABS: CREATININE SERUM 1.16 MG/DL (0.60-1.30); PHOSPHORUS 2.6 MG/DL (2.3-4.7)
--- NOTE | 2022-04-09 08:57 | Tele-ICU Progress Note ---
Subjective Date Seen by a Provider: Apr 09, 2022 Time Seen by a Provider: 08:57 Subjective/Events-last exam (Tele-ICU Physician , consultation) Available chart/ vitals / labs / Images reviewed H&P is from ER notes Patient's information available about PMH, allergy reviewed in EMR. ROS as per chart and RN report Video assessment done using teleICU camera, rest of exam as per RN Discussed with RN. This patient admitted with acute hypoxic respiratory failure with underlying COVID19 pneumonia. Recently she was given prophylaxis with her Tamiflu and packs fluid. Apparently she has not been vaccinated for COVID19 pneumonia. Today she is on Vapotherm 35 L with 80%. Last night she was on BiPAP. Chest x- ray still showing bilateral infiltrate. Today her potassium increased to 5.2. She also has atrial fibrillation with rapid ventricular rate and currently she is on Cardizem 60 mg p.o. every 6 hours. Impression 1. Acute hypoxic respiratory failure secondary to COVID19 pneumonia. She is on dexamethasone 60 mg once a day and albuterol inhaler as needed. Will continue Vapotherm and wean FiO2 as tolerated. 2. Atrial fibrillation with rapid ventricular rate. She is on oral Cardizem and being followed by cardiology. 3. Anticoagulation. She is on a Coumadin for atrial fibrillation. 4. Hemoptysis resolved. 5. Hyperkalemia probably secondary to steroids. Will give 1 dose of Kayexalate. Plans in collaboration with bedside consultants and IM MDs. Discussed with the PACKING AND STAMPING MACHINE OPERATOR. Critical care time 20 minutes Sepsis Event Evaluation Height, Weight, BMI Height: 5'8.00" Weight: 243lbs. 2.0oz. 110.990961kt; 39.92 BMI Method:Stated Exam Exam Patient acknowledged, consented, and participated in this virtual visit which was conducted using real time audio/video Vital Signs Date Time Temp Pulse Resp B/P (MAP) Pulse Ox O2 Delivery O2 Flow Rate FiO2 04/09/22 08:34 70.00 04/09/22 08:20 NIV Bilevel 70.00 04/09/22 08:00 93 17 100 NIV Bilevel 80.00 04/09/22 08:00 36.4 04/09/22 07:00 112 28 135/108 (117) 100 NIV Bilevel 80.00 04/09/22 07:00 121 04/09/22 06:46 NIV Bilevel 80.00 04/09/22 06:42 80.00 04/09/22 06:38 120 28 100 100.00 04/09/22 06:00 112 25 169/128 (142) 100 NIV Bilevel 100.00 04/09/22 05:00 125 24 138/98 (111) 100 NIV Bilevel 100.00 04/09/22 04:00 105 20 146/81 (102) 100 NIV Bilevel 100.00 04/09/22 04:00 95 NIV Bilevel 100 04/09/22 03:47 NIV Bilevel 100.00 04/09/22 03:01 111 24 96 60.00 04/09/22 03:00 NIV Bilevel 60.00 04/09/22 03:00 90 194/73 (113) 100 NIV Bilevel 60.00 04/09/22 02:00 111 21 150/102 (118) 98 NIV Bilevel 100.00 04/09/22 01:23 NIV Bilevel 100.00 04/09/22 01:00 117 04/09/22 01:00 106 18 153/110 (124) 97 NIV Bilevel 60.00 04/09/22 00:00 109 20 189/98 (128) 95 NIV Bilevel 60.00 04/08/22 23:46 93 NIV Bilevel 60 04/08/22 23:31 36.6 NIV Bilevel 60.00 04/08/22 23:00 105 21 97 NIV Bilevel 60.00 04/08/22 22:46 112 31 97 60.00 04/08/22 22:00 112 24 134/113 (120) 98 NIV Bilevel 60.00 04/08/22 21:00 113 141/99 (113) 99 NIV Bilevel 60.00 04/08/22 20:10 NIV Bilevel 60.00 04/08/22 20:02 130 26 124/99 (107) 89 Vapotherm 35.00 100.00 04/08/22 20:00 92 NIV Bilevel 60 04/08/22 19:29 36.1 04/08/22 19:00 81 15 103/62 (76) 98 Vapotherm 35.00 100.00 04/08/22 19:00 101 04/08/22 18:38 94 Vapotherm 35.00 100 04/08/22 18:30 Vapotherm 35.00 100.00 04/08/22 18:00 96 20 131/73 (92) 98 NIV Bilevel 40.00 04/08/22 17:00 116 22 130/79 (96) 96 NIV Bilevel 40.00 04/08/22 16:00 115 28 105/88 (94) 100 NIV Bilevel 40.00 04/08/22 16:00 36.5 04/08/22 15:46 94 NIV Bilevel 60 04/08/22 15:00 105 26 142/106 (118) 96 Vapotherm 35.00 100.00 04/08/22 14:38 91 Vapotherm 35.00 100 04/08/22 14:00 104 22 142/83 (102) 93 Vapotherm 35.00 100.00 04/08/22 13:00 100 16 112/90 (97) 90 Vapotherm 35.00 100.00 04/08/22 13:00 100 04/08/22 12:00 93 21 113/94 (100) 92 Vapotherm 35.00 100.00 04/08/22 12:00 97 Vapotherm 35.00 100 04/08/22 11:57 36.6 04/08/22 11:00 112 39 123/77 (92) 98 Vapotherm 35.00 100.00 04/08/22 10:53 96 Vapotherm 35.00 100 04/08/22 10:00 100 25 129/93 (105) 95 Vapotherm 35.00 100.00 04/08/22 09:30 95 Vapotherm 35.00 100.00 04/08/22 09:00 80 16 109/84 (92) 94 NIV Bilevel 75.00 I & O 04/09/22 07:00 Intake Total 525 ml Output Total 1155 ml Balance -630 ml Height & Weight Height: 5'8.00" Weight: 243lbs. 2.0oz. 110.767752cp; 39.92 BMI Method:Stated General Appearance: No Apparent Distress (patient tolerating BiPap therapy we ll) Respiratory: No Accessory Muscle Use, Decreased Breath Sounds (bilaterally), Rhonci (bilateral), Wheezing (bilateral, more prominent on left ) Cardiovascular: Other (distant heart sounds, R LE +1 edema patient reports is chronic) Capillary Refill: Less Than 3 Seconds Extremity: Other (R LE edema +1) Neurologic/Psychiatric: Alert, Normal Mood/Affect Skin: Normal Color, Warm/Dry Results Lab Laboratory Tests 04/08/22 04:15 04/09/22 08:23 Assessment/Plan Assessment/Plan above Critical Care: Critically Ill Patient Time spent with patient (mins): 20 NEHEMIAS BLUNT MD Apr 09, 2022 08:57
[2022-04-09 08:59] LABS: MAGNESIUM 3.1 MG/DL (1.6-2.4)
[2022-04-09] MEDS ORDERED: SODIUM POLYSTYRENE POWDER 15 GM BOTTLE PO NR (10:00)
--- NOTE | 2022-04-09 10:24 | Physical Therapy Progress Note ---
Therapy Progress Note Patient on hold due to currently pulmonary status. PT will attempt later today or tomorrow LYDIA Mcmillan PT Apr 09, 2022 10:24
--- NOTE | 2022-04-09 10:36 | Progress Note ---
ELMA PEACOCK 04/09/22 10:36am: Subjective Date Seen by a Provider: Apr 09, 2022 Time Seen by a Provider: 08:30 Subjective/Events-last exam Ms. Felipe is a 77 year old female with a PMHx of HTN, arthritis, and PAD with Coumadin therapy who presents with acute on chronic respiratory failure with hypoxia and is COVID positive. Per nursing report, patient's condition continues to decline. Patient is demonstrating fatigue/exhaustion. Patient was transitioned to BiPap therapy from vapotherm on 04/08 around 1540. Patient is resting in bed this morning. Patient does not open her eyes but nods "yes or no" to questions. Patient denies pain, reports SOA. Continue close monitoring. Review of Systems General: Fatigue HEENT: No Head Aches Pulmonary: Dyspnea Cardiovascular: No: Chest Pain Neurological: Weakness Objective Exam Last Set of Vital Signs Vital Signs Date Time Temp Pulse Resp B/P (MAP) Pulse Ox O2 Delivery O2 Flow Rate FiO2 04/09/22 10:26 NIV Bilevel 60.00 04/09/22 10:22 110 19 99 04/09/22 10:00 149/79 (102) 04/09/22 08:00 80 04/09/22 08:00 36.4 Capillary Refill : Less Than 3 Seconds I&O Intake and Output 04/09/22 00:00 Intake Total 595 ml Output Total 1075 ml Balance -480 ml Intake Oral 495 ml IV Total 100 ml Output Urine Total 1075 ml General: Cooperative Lungs: Other (coarse breath sounds bilaterally) Heart: Other (distant heart sounds) Abdomen: Normal Bowel Sounds, Soft, No Tenderness Extremities: Other (trace edema of R LE - chronic) Psych/Mental Status: Other (patient appears fatigued. Patient does not open her eyes, patient nods her head "yes or no" to questions) Results Lab Laboratory Tests 04/09/22 06:20: Blood Gas Puncture Site RIGHT RADIAL, Blood Gas Patient Temperature 36, Arterial Blood pH 7.42, Arterial Blood Partial Pressure CO2 40, Arterial Blood Partial Pressure O2 222H, Arterial Blood HCO3 25, Arterial Blood Total CO2 26.6, Arterial Blood Oxygen Saturation 100, Arterial Blood Base Excess 1.1, Joshua Test YES-POS, Blood Gas Ventilator Setting NO, Blood Gas Inspired Oxygen 100% 04/09/22 08:23: White Blood Count 17.5H, Red Blood Count 2.81L, Hemoglobin 8.8L, Hematocrit 28L, Mean Corpuscular Volume 99, Mean Corpuscular Hemoglobin 31, Mean Corpuscular Hemoglobin Concent 32, Red Cell Distribution Width 15.3H, Platelet Count 376, Mean Platelet Volume 10.1, Immature Granulocyte % (Auto) 2, Neutrophils (%) (Auto) 92H, Lymphocytes (%) (Auto) 2L, Monocytes (%) (Auto) 3, Eosinophils (%) (Auto) 0, Basophils (%) (Auto) 0, Neutrophils # (Auto) 16.2H, Lymphocytes # (Auto) 0.3L, Monocytes # (Auto) 0.6, Eosinophils # (Auto) 0.0, Basophils # (Auto) 0.0, Immature Granulocyte # (Auto) 0.4H, Prothrombin Time 38.0H, INR Comment 3.8H, Sodium Level 136, Potassium Level 5.4H, Chloride Level 106, Carbon Dioxide Level 19L, Anion Gap 11, Blood Urea Nitrogen 67H, Creatinine 1.16, Est imat Glomerular Filtration Rate 48, BUN/Creatinine Ratio 58, Glucose Level 163H, Calcium Level 9.3, Corrected Calcium 10.0, Phosphorus Level 2.6, Magnesium Level 3.1H, Total Bilirubin 1.1H, Aspartate Amino Transf (AST/SGOT) 30, Alanine Aminotransferase (ALT/SGPT) 39, Alkaline Phosphatase 52, Total Protein 5.7L, Albumin 3.1L Microbiology 04/05/22 MRSA Screen - Final, Complete MRSA not isolated Assessment/Plan Assessment/Plan Assess & Plan/Chief Complaint 1. Acute respiratory failure with hypoxia, Pneumonia, COVID + -BiPap therapy - BiPap 80% on 04/09 - monitor for signs of intolerance, ie hypoxia, tachypnea, somnolence -Albuterol breathing treatments - 4 puffs Q4H IH with RT -Decadron 6mg IV qd -Cefepime 1000mg - 50ml @ 100mls/hr Q6H IV for PNA -AM labs - CBC, BMP, INR -Hemoptysis on 04/07 - monitor Hgb, INR, and other signs of bleeding. Patient is not demonstrating signs of bleeding at this time. Likely secondary to viral infection but will monitor closely. -Hold PT while on BiPap 2. Atrial fibrillation vs. Heart failure -Continue telemetry and diltiazem therapy 125mg - 125ml @ 5mls/hr Q24h IV for rate control -> transitioned to Cardizem 30mg PO Q6H on 04/07 -Anti-coagulation for stroke prophylaxis. INR 3.8 on 04/09. Consider restarting warfarin therapy or beginning Eliquis 5mg PO BID once INR is 2-3 -Echocardiogram - CXR findings of enlarged cardiac silhouette, BNP of 454.3 -Consult Cardiology -> monitor HR and BP. Continue oral Cardizem 3. Protein nutrition deficiency with total protein of 5.8 on 04/05, 5.8 on 04/06 -Protein dense diet as tolerated 4. Hyponatremia. Na of 136 on 04/09 - resolved -Monitor with AM BMP 5. Pain management - myalgia/arthritis -Lortab 5mg Q6H PO PRN 6. HTN -Monitor BP -Resume home medications - Norvasc 5mg PO qd, triamterene/ HCTZ 75-50 tablet PO qd -Hydralazine 5mg Q4H PRN IV for SBP >180, DBP >120 7. Hyperkalemia - 5.2 on 04/08, 5.4 04/09 -Monitor with AM BMP 8. Hypermagnesemia - 3.1 on 04/09 -Monitor with AM Mg Clinical Quality Measures Admission Status Admission Dx 1. Acute respiratory failure with hypoxia, Pneumonia, COVID + -BiPap therapy - currently 50%. Continue and wean as tolerated -Albuterol breathing treatments - 4 puffs Q4H IH with RT -Decadron 6mg IV qd -Cefepime 1000mg - 50ml @ 100mls/hr Q6H IV for PNA -AM labs - CBC, BMP, INR 2. Atrial fibrillation vs. Heart failure -Continue telemetry and diltiazem therapy 125mg - 125ml @ 5mls/hr Q24h IV for rate control -Anti-coagulation for stroke prophylaxis - INR of 14.8. No anti-coagulation will be initiated at this time. Repeat INR this afternoon/evening. Patient is s/p Vitamin K 2.5mg therapy. Monitor Hbg with AM CBC/signs of bleeding -Echocardiogram - CXR findings of enlarged cardiac silhouette, BNP of 454.3 -Consult Cardiology 3. Protein nutrition deficiency with total protein of 5.8 on 04/05 -Protein dense diet as tolerated 4. Hyponatremia with Na of 132 on 04/05 -Monitor with AM BMP JENNIFER FRANCO MD 04/10/22 10:53am: Assessment/Plan Assessment/Plan Assess & Plan/Chief Complaint Pt remains on BiPAP. Had rougher night. Will attempt to wean FiO2 down. Appreciate TeleICU management. Will continue current aggressive measures. Family did come and visit her in case of need for intubation. PT to see if able to tolerate. Supervisory-Addendum Brief Verification & Attestation Participated in pt care: history, MDM, physical Personally performed: exam, history, MDM, supervision of care Care discussed with: Medical Student Procedures: n/a Results interpretation: Verified all documentation Verification and Attestation of Medical Student E/M Service A medical student performed and documented this service in my presence. I reviewed and verified all information documented by the medical student and made modifications to such information, when appropriate. I personally performed the physical exam and medical decision making. Jennifer Franco, Apr 10, 2022,10:53 ELMA PEACOCK Apr 09, 2022 10:36 am JENNIFER FRANCO MD Apr 10, 2022 10:53 am
--- NOTE | 2022-04-09 11:26 | Cardiology Progress Note ---
Subjective Date Seen by Provider: Apr 09, 2022 Time Seen by Provider: 11:25 Subjective/Events-last exam Patient was seen at bedside, lethargic, back on BiPAP. Review of Systems General: No Chills, No Night Sweats; Fatigue; No Malaise, No Appetite, No Other HEENT: No Head Aches, No Visual Changes, No Eye Pain, No Ear Pain, No Dysphasia, No Sinus Congestion, No Post Nasal Drip, No Sore Throat, No Other Pulmonary: Dyspnea; No Cough, No Pleuritic Chest Pain, No Other Cardiovascular: No: Chest Pain, Palpitations, Orthopnea, Paroxysmal Noc. Dyspnea, Edema, Lt Headedness, Other Objective-Cardiology Exam Last Set of Vital Signs Vital Signs 04/09/22 04/09/22 08:00 11:00 Temp 36.4 Pulse 134 Resp 24 B/P (MAP) 136/99 (111) Pulse Ox 99 O2 Delivery NIV Bilevel O2 Flow Rate 60.00 I&O Intake and Output 04/09/22 00:00 Intake Total 595 ml Output Total 1075 ml Balance -480 ml Intake Oral 495 ml IV Total 100 ml Output Urine Total 1075 ml General: Cooperative HEENT: Atraumatic Neck: Supple Lungs: Other (coarse breath sounds bilaterally) Heart: Other (distant heart sounds) Abdomen: Normal Bowel Sounds, Soft, No Tenderness Extremities: Other (trace edema of R LE - chronic) Skin: No Rashes Neuro: Normal Speech Psych/Mental Status: Other (patient appears fatigued. Patient does not open her eyes, patient nods her head "yes or no" to questions) Results Lab Laboratory Tests 04/09/22 08:23 A/P-Cardiology Admission Diagnosis Acute respiratory failure COVID-19 pneumonia Atrial fibrillation Coumadin toxicity Assessment/Plan Acute respiratory failure with diffuse pulmonary infiltrate on chest x-ray representing pneumonia Back on BiPAP COVID-19 pneumonia. Managed by primary care team Atrial fibrillation with rapid ventricular response, new onset. Patient is tachycardic again, I will increase Cardizem to 60 mg every 6 hours and monitor tolerance and response [id number] score 5, patient will require oral anticoagulation as an outpatient She has been maintained on Coumadin as an outpatient. We will consider using Xarelto History of peripheral arterial disease, intolerant/allergy to Plavix. Maintained on Coumadin, currently having Coumadin toxicity Coumadin toxicity with INR 14, received 10 mg of vitamin K and [facility] in [place] INR on April 09, 2022 is 3.8 No signs of active bleeding, will continue monitoring and give FFP as needed Continue to monitor daily INR Hypertension, continue to monitor blood pressure Hyperlipidemia, intolerant to statin. COPD. LELE POND MD Apr 09, 2022 11:26
[2022-04-09] MEDS: HYDROcodone/APAP 5 MG/325 MG (LORTAB) TAB PO PRN (13:44)
[2022-04-09] MEDS ORDERED: meTOprolol 5 MG/5 ML (LOPRESSOR) VIAL ONE (16:54)
[2022-04-09] MEDS: NS IV 1000 ML 1,000 ML IV SCH (16:58)
[2022-04-09] MEDS ORDERED: meTOprolol 5 MG/5 ML (LOPRESSOR) VIAL IV ONE (17:00)
[2022-04-09] MEDS ORDERED: meTOprolol 5 MG/5 ML (LOPRESSOR) VIAL IV NR (17:00)
[2022-04-09 23:54] LABS: ABG BASE EXCESS 0.3 MMOL/L (-2.5-2.5); ABG OXYGEN SATURATION 92 % (94-100); ABG PCO2 37 MMHG (35-45); ABG PH 7.43 (7.37-7.43); ABG PO2 62 MMHG (79-93); ABG TCO2 25.3 MMOL/L (21.0-31.0)
[2022-04-10] VITALS (7 sets, daily range): BP systolic 131–194; BP diastolic 62–116
[2022-04-10 00:05] LABS: ALLENS TEST YES-POS
[2022-04-10 00:06] LABS: INSPIRED O2 50%; PATIENT TEMP 36.5; VENTILATOR NO
[2022-04-10] MEDS ORDERED: RT-ALBUTEROL SULF 2.5 MG/3 ML PRE-MIX VIAL INH ONE (00:45)
[2022-04-10] MEDS: DexMEDEtomidine 250 ML DRIP 250 ML IV SCH ×2 (01:12→23:12)
--- NOTE | 2022-04-10 01:12 | Tele-ICU Progress Note ---
Progress Note eICU Nursing called because pt is more lethargic- tonight . COVID + Pt with hypoxemic respiratory failure on BiPAP Per video- on 50% FiO2 BiPAP 18/10 rate set at 24 - breathing 30 , sats 91% afebrile , appears sedated --NOTE pt continues on a precedex drip / K and Mg have been running high. ABGs 7.43/37/62/24 currently Plan- will remove the IV sedation with Precedex now- increase FiO2 to 60% and give extra albuterol neb now and 299 will check ABGs, BMP , Mg. Focused Exam Height, Weight, BMI Height: 5'8.00" Weight: 243lbs. 2.0oz. 110.974494hv; 39.92 BMI Method:Stated ADRIEL SHIELDS DO Apr 10, 2022 01:12
[2022-04-10] MEDS ORDERED: RT-ALBUTEROL HFA 8.5 GM INHALER IH PRN (01:30)
[2022-04-10] MEDS: RT-ALBUTEROL HFA 8.5 GM INHALER IH SCH ×6 (03:07→22:12)
[2022-04-10 03:47] LABS: BASOPHILS % (AUTO) 0 % (0-10); EOSINOPHILS % (AUTO) 0 % (0-10); HEMATOCRIT 29 % (35-52); HEMOGLOBIN 9.1 g/dL (11.5-16.0); LYMPHOCYTES # (AUTO) 0.4 10^3/uL (1.0-4.0); LYMPHOCYTES % (AUTO) 2 % (12-44); MEAN CORPUSCULAR HEMOGLOBIN 32 pg (25-34); MEAN CORPUSCULAR HGB CONC 32 g/dL (32-36); MEAN CORPUSCULAR VOLUME 100 fL (80-99); MEAN PLATELET VOLUME 10.2 fL (9.0-12.2); MONOCYTES # (AUTO) 0.8 10^3/uL (0.0-1.0); MONOCYTES % (AUTO) 5 % (0-12); NEUTROPHILS # (AUTO) 14.5 10^3/uL (1.8-7.8); NEUTROPHILS % (AUTO) 90 % (42-75); PLATELET COUNT 389 10^3/uL (130-400); WHITE BLOOD COUNT 16.1 10^3/uL (4.3-11.0)
[2022-04-10 03:57] LABS: PROTHROMBIN TIME PATIENT 31.8 SEC (12.2-14.7)
[2022-04-10 04:10] LABS: BILIRUBIN,TOTAL 1.2 MG/DL (0.1-1.0); CALCIUM 9.5 MG/DL (8.5-10.1); CREATININE SERUM 1.09 MG/DL (0.60-1.30); PHOSPHORUS 2.6 MG/DL (2.3-4.7); POTASSIUM 5.1 MMOL/L (3.6-5.0); TOTAL PROTEIN 5.7 GM/DL (6.4-8.2)
[2022-04-10 04:13] LABS: ABG BASE EXCESS 0.2 MMOL/L (-2.5-2.5); ABG OXYGEN SATURATION 98 % (94-100); ABG PCO2 40 MMHG (35-45); ABG PO2 89 MMHG (79-93); ABG TCO2 25.5 MMOL/L (21.0-31.0); ALLENS TEST YES-POS; INSPIRED O2 70%; PATIENT TEMP 37.5
[2022-04-10] MEDS: KCL 20 MEQ TAB (K-DUR) PO SCH (05:10)
[2022-04-10] MEDS: POTASSIUM CL 10MEQ/50ML IVPB 50 ML IV SCH (05:10)
[2022-04-10] MEDS: MAGNESIUM 1 GM/100 ML IVPB 100 ML IV SCH (05:10)
[2022-04-10] MEDS: methylPREDNISolone 125 MG (Solu-MEDROL) VIAL IVP SCH ×4 (05:31→23:11)
[2022-04-10] MEDS: NS IV 1000 ML 1,000 ML IV SCH ×2 (06:51→11:13)
[2022-04-10] MEDS ORDERED: NS (IVPB) 500 ML IV ONE (08:00)
--- NOTE | 2022-04-10 08:02 | Tele-ICU Progress Note ---
Subjective Date Seen by a Provider: Apr 10, 2022 Time Seen by a Provider: 09:18 Subjective/Events-last exam (Tele-ICU Physician , Progress note) Available chart/ vitals / labs / Images reviewed H&P is from ER notes Patient's information available about PMH, allergy reviewed in EMR. ROS as per chart and RN report Video assessment done using teleICU camera, rest of exam as per RN Discussed with RN. This patient admitted with acute hypoxic respiratory failure with underlying COVID19 pneumonia. Recently she was given prophylaxis with her Tamiflu and packs fluid. Apparently she has not been vaccinated for COVID19 pneumonia. Today she is on Vapotherm 35 L with 80%. Last night she was on BiPAP. Chest x- ray still showing bilateral infiltrate. Today her potassium increased to 5.2. She also has atrial fibrillation with rapid ventricular rate and currently she is on Cardizem 60 mg p.o. every 6 hours. She is still has RVR 130s-to 150s. she did respond to lopressor yesterday. Impression 1. Acute hypoxic respiratory failure secondary to COVID19 pneumonia. She is on dexamethasone 6 mg once a day and albuterol inhaler as needed. Will continue Vapotherm and wean FiO2 as tolerated. 2. Atrial fibrillation with rapid ventricular rate. She is on oral Cardizem and being followed by cardiology. will add iv lopressor for 1 day 3. Anticoagulation. She is on a Coumadin for atrial fibrillation. 4. Hemoptysis resolved. 5. Hyperkalemia probably secondary to steroids and maxide. Hold maxide an co ntinue to monitor K. Plans in collaboration with bedside consultants and IM MDs. Discussed with the BIOINFORMATICS ASSOCIATE. Sepsis Event Evaluation Height, Weight, BMI Height: 5'8.00" Weight: 243lbs. 2.0oz. 110.960418mv; 39.92 BMI Method:Stated Exam Exam Patient acknowledged, consented, and participated in this virtual visit which was conducted using real time audio/video Vital Signs Date Time Temp Pulse Resp B/P (MAP) Pulse Ox O2 Delivery O2 Flow Rate FiO2 04/10/22 07:02 130 27 99 70.00 04/10/22 06:00 135 31 126/78 (94) 97 NIV Bilevel 70.00 04/10/22 05:00 124 166/105 (125) 99 NIV Bilevel 70.00 04/10/22 04:00 97 NIV Bilevel 70 04/10/22 04:00 122 25 165/82 (109) 99 NIV Bilevel 70.00 04/10/22 03:38 37.5 NIV Bilevel 70.00 04/10/22 03:04 116 23 100 70.00 04/10/22 03:00 126 28 158/105 (122) 99 NIV Bilevel 70.00 04/10/22 02:00 144 28 130/98 (109) 100 NIV Bilevel 70.00 04/10/22 01:12 117 141/117 04/10/22 01:01 NIV Bilevel 70.00 04/10/22 01:00 129 25 152/98 (116) 98 NIV Bilevel 70.00 04/10/22 01:00 110 04/10/22 00:30 122 27 117/106 (110) 93 NIV Bilevel 50.00 04/10/22 00:00 91 NIV Bilevel 50 04/09/22 23:30 138 142/85 (104) NIV Bilevel 50.00 04/09/22 23:27 36.5 NIV Bilevel 50.00 04/09/22 22:40 117 28 95 50.00 04/09/22 22:01 36.4 NIV Bilevel 50.00 04/09/22 22:00 117 29 145/105 (118) 94 NIV Bilevel 50.00 04/09/22 21:00 120 22 128/84 (99) 96 NIV Bilevel 50.00 04/09/22 20:00 95 NIV Bilevel 50 04/09/22 20:00 121 27 124/93 (103) 96 NIV Bilevel 50.00 04/09/22 19:47 115 28 95 50.00 04/09/22 19:00 93 04/09/22 19:00 93 19 142/119 (127) 96 NIV Bilevel 50.00 04/09/22 18:00 104 34 129/81 (97) 98 NIV Bilevel 50.00 04/09/22 17:00 116 34 91/76 (81) 95 NIV Bilevel 50.00 04/09/22 16:00 98 NIV Bilevel 50 04/09/22 16:00 37.6 04/09/22 16:00 124 28 121/95 (104) 96 NIV Bilevel 50.00 04/09/22 15:00 142 147/86 (106) 95 NIV Bilevel 50.00 04/09/22 14:42 50.00 04/09/22 14:36 115 19 98 60.00 04/09/22 14:00 140 35 134/97 (109) 95 NIV Bilevel 60.00 04/09/22 13:00 123 19 126/105 (112) 96 NIV Bilevel 60.00 04/09/22 12:56 119 04/09/22 12:50 NIV Bilevel 60.00 04/09/22 12:48 112 27 95 60.00 04/09/22 12:10 Vapotherm 35.00 100.00 04/09/22 12:00 133 24 155/102 (119) 99 NIV Bilevel 60.00 04/09/22 12:00 98 NIV Bilevel 60 04/09/22 11:46 36.9 04/09/22 11:00 134 24 136/99 (111) 99 NIV Bilevel 60.00 04/09/22 10:26 NIV Bilevel 60.00 04/09/22 10:22 110 19 99 70.00 04/09/22 10:00 117 20 149/79 (102) 100 NIV Bilevel 70.00 04/09/22 09:00 129 10 107/65 (79) 97 NIV Bilevel 70.00 04/09/22 08:34 70.00 04/09/22 08:20 NIV Bilevel 70.00 04/09/22 08:00 99 NIV Bilevel 80 04/09/22 08:00 93 17 100 NIV Bilevel 80.00 04/09/22 08:00 36.4 I & O 04/10/22 07:00 Intake Total 1630 ml Output Total 1500 ml Balance 130 ml Height & Weight Height: 5'8.00" Weight: 243lbs. 2.0oz. 110.440453fr; 39.92 BMI Method:Stated General Appearance: No Apparent Distress (patient tolerating BiPap therapy well) Respiratory: No Accessory Muscle Use, Decreased Breath Sounds (bilaterally), Rhonci (bilateral), Wheezing (bilateral, more prominent on left ) Cardiovascular: Other (distant heart sounds, R LE +1 edema patient reports is chronic) Capillary Refill: Less Than 3 Seconds Extremity: Other (R LE edema +1) Neurologic/Psychiatric: Alert, Normal Mood/Affect Skin: Normal Color, Warm/Dry Results Lab Laboratory Tests 04/09/22 08:23 04/10/22 03:25 Assessment/Plan Assessment/Plan as above Critical Care: Critically Ill Patient Time spent with patient (mins): 25 NEHEMIAS BLUNT MD Apr 10, 2022 08:02
[2022-04-10] MEDS: MULTIVIT W/MINERALS TAB (THERAGRAN M) PO SCH (08:12)
--- NOTE | 2022-04-10 08:35 | Diagnostic Imaging Report ---
INDICATION: Pneumonia. Comparison is made with prior examination of 04/07/2022. FINDINGS: There is diffuse bilateral airspace disease. There is some cardiomegaly. There is no pleural effusion or pneumothorax. The mediastinum is unremarkable. IMPRESSION: Cardiomegaly and diffuse bilateral airspace disease suspect for pneumonia. Some underlying central pulmonary venous congestion cannot be excluded. Recommend clinical correlation. Dictated by: Dictated on workstation # [id number]
[2022-04-10] MEDS: PANTOPRAZOLE 40 MG (PROTONIX) VIAL IV SCH (08:42)
[2022-04-10] MEDS: meTOprolol 5 MG/5 ML (LOPRESSOR) VIAL IV SCH ×3 (09:11→20:36)
[2022-04-10] MEDS: FOLIC ACID 1 MG TAB PO SCH (09:57)
[2022-04-10] MEDS: LORATADINE (CLARITIN) 10 MG TAB PO SCH (09:57)
[2022-04-10] MEDS: amLODIPine 5 MG (NORVASC) TAB PO SCH (09:57)
[2022-04-10] MEDS ORDERED: ACETAMINOPHEN 650 MG SUPP (TYLENOL) PR PRN (10:00)
--- NOTE | 2022-04-10 10:18 | Cardiology Progress Note ---
Subjective Date Seen by Provider: Apr 10, 2022 Time Seen by Provider: 10:16 Subjective/Events-last exam Patient has worsening respiratory failure, not taking pills well. Not following commands well. Tachycardic at this time Review of Systems General: Other (Unable to provide review of system) Objective-Cardiology Exam Last Set of Vital Signs Vital Signs 04/10/22 04/10/22 04/10/22 08:00 08:05 10:00 Temp 38.0 Pulse 106 Resp 27 B/P (MAP) 150/107 (121) Pulse Ox 95 O2 Delivery NIV Bilevel O2 Flow Rate 70.00 FiO2 70 I&O Intake and Output 04/10/22 00:00 Intake Total 1330 ml Output Total 1280 ml Balance 50 ml Intake Oral 330 ml IV Total 1000 ml Output Urine Total 1280 ml General: Alert, Moderate Distress HEENT: Atraumatic Neck: Supple Lungs: Other (coarse breath sounds bilaterally) Heart: Other (Tachycardic) Abdomen: Normal Bowel Sounds, Soft, No Tenderness Extremities: Other (trace edema of R LE - chronic) Skin: No Rashes Neuro: Normal Speech Psych/Mental Status: Mood NL, Other (patient appears fatigued. Patient does not open her eyes, patient nods her head "yes or no" to questions) Results Lab Laboratory Tests 04/10/22 03:25 A/P-Cardiology Admission Diagnosis Acute respiratory failure COVID-19 pneumonia Atrial fibrillation Coumadin toxicity Assessment/Plan Acute respiratory failure with diffuse pulmonary infiltrate on chest x-ray representing pneumonia Back on BiPAP COVID-19 pneumonia. Managed by primary care team Atrial fibrillation with rapid ventricular response. Patient was switched from Cardizem drip to oral Cardizem, currently she is in respiratory failure, unable to take pills and not following commands I will restart Cardizem drip and Lopressor IV and monitor tolerance and response. [id number] score 5, patient will require oral anticoagulation as an outpatient She has been maintained on Coumadin as an outpatient. We will consider using Xarelto History of peripheral arterial disease, intolerant/allergy to Plavix. Maintained on Coumadin, currently having Coumadin toxicity Coumadin toxicity with INR 14, received 10 mg of vitamin K and [facility] [place] INR on April 10, 2022 is 3.0 No signs of active bleeding, will continue monitoring and give FFP as needed I will restart Coumadin at low-dose, continue to monitor daily INR Hypertension, continue to monitor blood pressure Hyperlipidemia, intolerant to statin. COPD. LELE POND MD Apr 10, 2022 10:17
[2022-04-10] MEDS ORDERED: dilTIAZem DRIP PRE-MIX 125 ML IV SCH (10:30)
[2022-04-10] MEDS ORDERED: ENOXAPARIN 120 MG/0.8 ML (LOVENOX) SQ SCH (10:45)
[2022-04-10] MEDS: dilTIAZem DRIP PRE-MIX 125 ML IV SCH ×2 (10:46→19:37)
--- NOTE | 2022-04-10 12:08 | Physical Therapy Progress Note ---
Therapy Progress Note Hold per nursing due to elevated HR, decreased respiratory status GIANNI HARRISON DPT Apr 10, 2022 12:08
--- NOTE | 2022-04-10 12:38 | Progress Note ---
ELMA PEACOCK 04/10/22 12:38pm: Subjective Date Seen by a Provider: Apr 10, 2022 Time Seen by a Provider: 08:40 Subjective/Events-last exam Ms. Marion is a 77 year old female with a PMHx of HTN, arthritis, and PAD with Coumadin therapy who presents with acute on chronic respiratory failure with hypoxia and is COVID positive. Patient remains on BiPap therapy. Patient is resting in bed this morning and will open her eyes and respond to voice. Unable to obtain ROS. Per nursing report patient has been struggling to use a straw and take PO medications. Diltiazem drip has been resumed per Dr. Roberson. The patient's INR is 3.0, Lovenox and warfarin have been initiated per Dr. Roberson. Review of Systems Unable to obtain Objective Exam Last Set of Vital Signs Vital Signs Date Time Temp Pulse Resp B/P (MAP) Pulse Ox O2 Delivery O2 Flow Rate FiO2 04/10/22 12:24 37.6 04/10/22 12:00 97 NIV Bilevel 70 04/10/22 12:00 128 29 182/107 (132) 70.00 Capillary Refill : Less Than 3 Seconds I&O Intake and Output 04/10/22 00:00 Intake Total 1330 ml Output Total 1280 ml Balance 50 ml Intake Oral 330 ml IV Total 1000 ml Output Urine Total 1280 ml General: Cooperative, Other (responsive to voice) Lungs: Other (coarse breath sounds bilaterally) Heart: Other (distant heart sounds) Abdomen: Normal Bowel Sounds, Soft, No Tenderness Extremities: Other (trace R LE edema, chronic) Results Lab Laboratory Tests 04/09/22 23:45: Blood Gas Puncture Site RIGHT RADIAL, Blood Gas Patient Temperature 36.5, Arterial Blood pH 7.43, Arterial Blood Partial Pressure CO2 37, Arterial Blood Partial Pressure O2 62L, Arterial Blood HCO3 24, Arterial Blood Total CO2 25.3, Arterial Blood Oxygen Saturation 92L, Arterial Blood Base Excess 0.3, Joshua Test YES-POS, Blood Gas Ventilator Setting NO, Blood Gas Inspired Oxygen 50% 04/10/22 00:20: Glucometer 147H 04/10/22 03:25: White Blood Count 16.1H, Red Blood Count 2.87L, Hemoglobin 9.1L, Hematocrit 29L, Mean Corpuscular Volume 100H, Mean Corpuscular Hemoglobin 32, Mean Corpuscular Hemoglobin Concent 32, Red Cell Distribution Width 15.6H, Platelet Count 389, Mean Platelet Volume 10.2, Immature Granulocyte % (Auto) 3, Neutrophils (%) (Auto) 90H, Lymphocytes (%) (Auto) 2L, Monocytes (%) (Auto) 5, Eosinophils (%) (Auto) 0, Basophils (%) (Auto) 0, Neutrophils # (Auto) 14.5H, Lymphocytes # (Auto) 0.4L, Monocytes # (Auto) 0.8, Eosinophils # (Auto) 0.0, Basophils # (Auto) 0.0, Immature Granulocyte # (Auto) 0.5H, Prothrombin Time 31.8H, INR Comment 3.0H, Sodium Level 140, Potassium Level 5.1H, Chloride Level 110H, Carbon Dioxide Level 22, Anion Gap 8, Blood Urea Nitrogen 66H, Creatinine 1.09, Estimat Glomerular Filtration Rate 52, BUN/Creatinine Ratio 61, Glucose Level 146H, Calcium Level 9.5, Corrected Calcium 10.3H, Phosphorus Level 2.6, Magnesium Level 3.3H, Total Bilirubin 1.2H, Aspartate Amino Transf (AST/SGOT) 39H, Alanine Aminotransferase (ALT/SGPT) 43, Alkaline Phosphatase 56, B-Type Natriuretic Peptide 132.8H, Total Protein 5.7L, Albumin 3.0L 04/10/22 03:43: Blood Gas Puncture Site RIGHT RADIAL, Blood Gas Patient Temperature 37.5, Arterial Blood pH 7.40, Arterial Blood Partial Pressure CO2 40, Arterial Blood Partial Pressure O2 89, Arterial Blood HCO3 24, Arterial Blood Total CO2 25.5, Arterial Blood Oxygen Saturation 98, Arterial Blood Base Excess 0.2, Joshua Test YES-POS, Blood Gas Ventilator Setting NA, Blood Gas Inspired Oxygen 70% Microbiology 04/05/22 MRSA Screen - Final, Complete MRSA not isolated Radiology NAME: MARTY MARION [facility] REC#: [id number] PT STATUS: ADM IN : 1945 PHYSICIAN: NEHEMIAS BLUNT MD ADMIT DATE: 04/05/22/ICU Signed Date of Exam:04/10/22 CHEST 1 VIEW, AP/PA ONLY INDICATION: Pneumonia. Comparison is made with prior examination of 04/07/2022. FINDINGS: There is diffuse bilateral airspace disease. There is some cardiomegaly. There is no pleural effusion or pneumothorax. The mediastinum is unremarkable. IMPRESSION: Cardiomegaly and diffuse bilateral airspace disease suspect for pneumonia. Some underlying central pulmonary venous congestion cannot be excluded. Recommend clinical correlation. Dictated by: Dictated on workstation # [id number] Dict: 04/10/22830 Trans: 04/10/22926 [facility] [id number] Interpreted by: JHONNY SUTHERLAND MD Electronically signed by: JHONNY SUTHERLAND MD 04/10/22926 Assessment/Plan Assessment/Plan Assess & Plan/Chief Complaint 1. Acute respiratory failure with hypoxia, Pneumonia, COVID + -BiPap therapy - BiPap 70% on 04/10 - monitor for signs of intolerance, ie hypoxia, tachypnea, somnolence -Albuterol breathing treatments - 4 puffs Q4H IH with RT -Decadron 6mg IV qd -Cefepime 1000mg - 50ml @ 100mls/hr Q6H IV for PNA -AM labs - CBC, BMP, INR -Hemoptysis on 04/07 - monitor Hgb, INR, and other signs of bleeding. Patient is not demonstrating signs of bleeding at this time. Likely secondary to viral infection but will monitor closely. -Hold PT while on BiPap -Fever 38.0 - Tylenol suppository 650mg Q4HR PRN 2. Atrial fibrillation vs. Heart failure -Continue telemetry and diltiazem therapy 125ml @ 5mls/hr Q24h IV; drip restarted on 04/10 due to intolerance of PO medication -Anti-coagulation for stroke prophylaxis. INR 3.0 on 04/10. Lovenox 120mg Q12H SC and warfarin 4mg PO at 1800 qd -Echocardiogram - CXR findings of enlarged cardiac silhouette, BNP of 454.3 -Appreciate plan per Cardiology 3. Protein nutrition deficiency -Protein dense diet as tolerated 4. Hyponatremia. Na of 136 on 04/09 - resolved -Monitor with AM BMP 5. Pain management - myalgia/arthritis -Lortab 5mg Q6H PO PRN 6. HTN -Monitor BP -Resume home medications - Norvasc 5mg PO qd, triamterene/ HCTZ 75-50 tablet PO qd -Hydralazine 5mg Q4H PRN IV for SBP >180, DBP >120 7. Hyperkalemia - 5.1 on 04/10 -Monitor with AM BMP 8. Hypermagnesemia - 3.3 on 04/10 -Monitor with AM Mg Clinical Quality Measures Admission Status Admission Dx 1. Acute respiratory failure with hypoxia, Pneumonia, COVID + -BiPap therapy - currently 50%. Continue and wean as tolerated -Albuterol breathing treatments - 4 puffs Q4H IH with RT -Decadron 6mg IV qd -Cefepime 1000mg - 50ml @ 100mls/hr Q6H IV for PNA -AM labs - CBC, BMP, INR 2. Atrial fibrillation vs. Heart failure -Continue telemetry and diltiazem therapy 125mg - 125ml @ 5mls/hr Q24h IV for rate control -Anti-coagulation for stroke prophylaxis - INR of 14.8. No anti-coagulation will be initiated at this time. Repeat INR this afternoon/evening. Patient is s/p Vitamin K 2.5mg therapy. Monitor Hbg with AM CBC/signs of bleeding -Echocardiogram - CXR findings of enlarged cardiac silhouette, BNP of 454.3 -Consult Cardiology 3. Protein nutrition deficiency with total protein of 5.8 on 04/05 -Protein dense diet as tolerated 4. Hyponatremia with Na of 132 on 04/05 -Monitor with AM BMP MICHAELLE BHATIA MD 04/10/22 12:52pm: Assessment/Plan Assessment/Plan Assess & Plan/Chief Complaint Patient remains on BiPAP and was able to wean off her Vapotherm yesterday. She was quite sedate overnight and Precedex was decreased and ultimately stopped. She is more arousable this morning. She woke up and told me she felt okay but otherwise is quite drowsy. is at bedside and states that is most alert she has been. Discussed with patient and her that she will need time to recover but that she is still at risk for intubation. Encouraged them that every day she stays off of the ventilator is good but ultimately she may end up requiring it. They expressed understanding. Supervisory-Addendum Brief Verification & Attestation Participated in pt care: history, MDM, physical Personally performed: exam, history, MDM, supervision of care Care discussed with: Medical Student Procedures: n/a Results interpretation: Verified all documentation Verification and Attestation of Medical Student E/M Service A medical student performed and documented this service in my presence. I reviewed and verified all information documented by the medical student and made modifications to such information, when appropriate. I personally performed the physical exam and medical decision making. Michaelle Bhatia, Apr 10, 2022,12:50 ELMA PEACOCK Apr 10, 2022 12:38 pm MICHAELLE BHATIA MD Apr 10, 2022 12:52 pm
[2022-04-10] MEDS ORDERED: warFARin 4 MG (COUMADIN) TAB ONE (17:43)
[2022-04-10] MEDS: warFARin 4 MG (COUMADIN) TAB PO SCH (17:50)
[2022-04-10 21:58] LABS: ABG BASE EXCESS -0.6 MMOL/L (-2.5-2.5); ABG OXYGEN SATURATION 91 % (94-100); ABG PCO2 41 MMHG (35-45); ABG PH 7.38 (7.37-7.43); ABG PO2 62 MMHG (79-93); ABG TCO2 25.1 MMOL/L (21.0-31.0)
[2022-04-10 21:59] LABS: ALLENS TEST YES-POS; INSPIRED O2 100%; PATIENT TEMP 36.6; VENTILATOR NO
[2022-04-10] MEDS ORDERED: DexMEDEtomidine 250 ML DRIP 250 ML IV ONE (22:58)
[2022-04-11] MEDS: KCL 20 MEQ TAB (K-DUR) PO SCH (01:42)
[2022-04-11] MEDS: MULTIVIT W/MINERALS TAB (THERAGRAN M) PO SCH (01:42)
[2022-04-11] MEDS: meTOprolol 5 MG/5 ML (LOPRESSOR) VIAL IV SCH ×4 (02:34→19:44)
[2022-04-11 02:42] VITALS: BP 172/116
[2022-04-11] MEDS: RT-ALBUTEROL HFA 8.5 GM INHALER IH SCH ×6 (02:42→22:16)
[2022-04-11] MEDS: dilTIAZem DRIP PRE-MIX 125 ML IV SCH ×4 (03:34→21:32)
[2022-04-11 05:02] LABS: BASOPHILS % (AUTO) 0 % (0-10); EOSINOPHILS % (AUTO) 0 % (0-10); HEMATOCRIT 27 % (35-52); HEMOGLOBIN 8.3 g/dL (11.5-16.0); LYMPHOCYTES # (AUTO) 0.4 10^3/uL (1.0-4.0); LYMPHOCYTES % (AUTO) 3 % (12-44); MEAN CORPUSCULAR HEMOGLOBIN 31 pg (25-34); MEAN CORPUSCULAR HGB CONC 30 g/dL (32-36); MEAN CORPUSCULAR VOLUME 102 fL (80-99); MEAN PLATELET VOLUME 10.4 fL (9.0-12.2); MONOCYTES # (AUTO) 0.6 10^3/uL (0.0-1.0); MONOCYTES % (AUTO) 5 % (0-12); NEUTROPHILS # (AUTO) 10.7 10^3/uL (1.8-7.8); NEUTROPHILS % (AUTO) 88 % (42-75); PLATELET COUNT 329 10^3/uL (130-400); WHITE BLOOD COUNT 12.1 10^3/uL (4.3-11.0)
[2022-04-11] MEDS: NS IV 1000 ML 1,000 ML IV SCH ×2 (05:08→19:41)
[2022-04-11] MEDS: methylPREDNISolone 125 MG (Solu-MEDROL) VIAL IVP SCH ×4 (05:08→23:00)
[2022-04-11 05:16] LABS: PROTHROMBIN TIME PATIENT 31.5 SEC (12.2-14.7)
[2022-04-11 05:22] LABS: ALBUMIN 2.7 GM/DL (3.2-4.5); BILIRUBIN,TOTAL 1.1 MG/DL (0.1-1.0); CALCIUM 9.1 MG/DL (8.5-10.1); CREATININE SERUM 1.24 MG/DL (0.60-1.30); MAGNESIUM 2.9 MG/DL (1.6-2.4); PHOSPHORUS 3.1 MG/DL (2.3-4.7); POTASSIUM 4.3 MMOL/L (3.6-5.0); TOTAL PROTEIN 5.1 GM/DL (6.4-8.2)
[2022-04-11] MEDS: MAGNESIUM 1 GM/100 ML IVPB 100 ML IV SCH (05:25)
[2022-04-11] MEDS: POTASSIUM CL 10MEQ/50ML IVPB 50 ML IV SCH (05:25)
[2022-04-11 06:21] LABS: BAND NEUTROPHILS 1 %; LYMPHOCYTES % (MANUAL) 3 %; MONOCYTES % (MANUAL) 2 %; NEUTROPHILS % (MANUAL) 94 %
[2022-04-11 06:22] LABS: ANISOCYTOSIS SLIGHT
[2022-04-11 06:47] VITALS: BP 95/75
--- NOTE | 2022-04-11 08:23 | Tele-ICU Progress Note ---
Subjective Date Seen by a Provider: Apr 11, 2022 Time Seen by a Provider: 08:18 Subjective/Events-last exam admitted with acute hypoxic respiratory failure with underlying COVID19 pneumonia. Recently she was given prophylaxis for flu in family Apparently she has not been vaccinated for COVID19 pneumonia. Chest x-ray still showing bilateral infiltrate. Today her potassium increased to 5.2. She also has atrial fibrillation with rapid ventricular rate and currently she is on Cardizem IV @ 15, po did not work. . She is still has RVR 90's with good BP . she did respond to lopressor yesterday. Currently on BiPAP 20/10 with FiO2 100%, on IV Medrol, CXR whows extensive right sided infiltrates from yesterday. Not working too hard to breathe Sepsis Event Evaluation Height, Weight, BMI Height: 5'8.00" Weight: 243lbs. 2.0oz. 110.604310ut; 39.92 BMI Method:Stated Exam Exam Patient acknowledged, consented, and participated in this virtual visit which was conducted using real time audio/video Vital Signs Date Time Temp Pulse Resp B/P (MAP) Pulse Ox O2 Delivery O2 Flow Rate FiO2 04/11/22 06:47 88 16 98 100.00 04/11/22 06:00 70 39 123/68 (86) 98 NIV Bilevel 100.00 04/11/22 05:15 91 30 130/82 (98) 97 NIV Bilevel 100.00 04/11/22 05:00 90 18 85/55 (65) 91 NIV Bilevel 100.00 04/11/22 04:00 80 17 128/78 (95) 88 NIV Bilevel 100.00 04/11/22 04:00 97 NIV Bilevel 90 04/11/22 03:34 85 103/68 04/11/22 03:00 84 17 122/64 (83) 93 NIV Bilevel 100.00 04/11/22 02:42 108 34 98 100.00 04/11/22 02:00 99 24 130/72 (91) 77 NIV Bilevel 100.00 04/11/22 01:00 96 04/11/22 01:00 96 131/64 (86) 89 NIV Bilevel 100.00 04/11/22 00:00 84 19 106/80 (89) 95 NIV Bilevel 100.00 04/10/22 23:57 97 NIV Bilevel 90 12/31/22 23:30 97 18 123/63 (83) 94 NIV Bilevel 100.00 04/10/22 23:24 37.0 04/10/22 22:30 106 24 176/79 (111) 96 NIV Bilevel 100.00 04/10/22 22:13 114 36 98 100.00 04/10/22 21:00 100 38 148/85 (106) 90 NIV Bilevel 100.00 04/10/22 20:00 97 NIV Bilevel 90 04/10/22 20:00 120 134/88 (103) 89 NIV Bilevel 70.00 04/10/22 19:46 36.6 04/10/22 19:37 131 142/98 04/10/22 19:30 133 33 142/98 (113) 91 NIV Bilevel 70.00 04/10/22 19:00 138 198/99 (132) 92 NIV Bilevel 70.00 04/10/22 19:00 138 04/10/22 18:52 123 38 99 70.00 04/10/22 18:00 116 22 163/73 (103) 91 NIV Bilevel 70.00 04/10/22 17:00 118 23 121/98 (106) 91 NIV Bilevel 70.00 04/10/22 16:05 37.7 04/10/22 16:00 97 NIV Bilevel 70 04/10/22 16:00 117 33 165/70 (101) 95 NIV Bilevel 70.00 04/10/22 15:00 106 115/74 (88) 98 NIV Bilevel 70.00 04/10/22 14:13 109 27 99 70.00 04/10/22 14:00 106 141/62 (88) 96 NIV Bilevel 70.00 04/10/22 13:00 106 28 124/84 (97) 100 NIV Bilevel 70.00 04/10/22 12:34 122 04/10/22 12:24 37.6 04/10/22 12:24 37.6 04/10/22 12:14 37.9 04/10/22 12:00 97 NIV Bilevel 70 04/10/22 12:00 128 29 182/107 (132) 97 NIV Bilevel 70.00 04/10/22 11:33 38.0 137 93 70 04/10/22 11:00 128 30 154/105 (121) 97 NIV Bilevel 70.00 04/10/22 10:54 146 04/10/22 10:47 38.0 04/10/22 10:46 137 04/10/22 10:27 137 29 93 70.00 04/10/22 10:00 106 27 150/107 (121) 95 NIV Bilevel 70.00 04/10/22 09:00 111 28 143/86 (105) 96 NIV Bilevel 70.00 I & O 04/11/22 07:00 Intake Total 1530 ml Output Total 1400 ml Balance 130 ml Height & Weight Height: 5'8.00" Weight: 243lbs. 2.0oz. 110.808017px; 39.92 BMI Method:Stated General Appearance: No Apparent Distress (patient tolerating BiPap therapy well), Mild Distress Respiratory: No Accessory Muscle Use, Decreased Breath Sounds (bilaterally), Rhonci (bilateral), Wheezing (bilateral, more prominent on left ), Other (If removed off BiPAP, SpO2 dropps quickly) Cardiovascular: Regular Rate, Rhythm, Other (distant heart sounds, R LE +1 edema patient reports is chronic) Capillary Refill: Less Than 3 Seconds Extremity: Other (R LE edema +1) Neurologic/Psychiatric: Alert, Normal Mood/Affect Skin: Normal Color, Warm/Dry Results Lab Laboratory Tests 04/09/22 08:23 04/10/22 03:25 04/11/22 04:00 Assessment/Plan Assessment/Plan COVID + with extensive infiltrates R > L, continue steroids switched from Decadron to Medrol 2 days ago, BiPAP need to watch for intubation though right now looks ok Critical Care: Critically Ill Patient Time spent with patient (mins): 25 TANISHA BECERRA MD Apr 11, 2022 08:23
[2022-04-11] MEDS ORDERED: ENOXAPARIN 120 MG/0.8 ML (LOVENOX) SQ SCH (09:00)
[2022-04-11] MEDS: LORATADINE (CLARITIN) 10 MG TAB PO SCH (09:12)
[2022-04-11] MEDS: FOLIC ACID 1 MG TAB PO SCH (09:12)
[2022-04-11] MEDS: PANTOPRAZOLE 40 MG (PROTONIX) VIAL IV SCH (09:15)
[2022-04-11 10:21] VITALS: BP 142/76
--- NOTE | 2022-04-11 11:23 | Cardiology Progress Note ---
Subjective Date Seen by Provider: Apr 11, 2022 Time Seen by Provider: 11:22 Subjective/Events-last exam Patient is maintained on BiPAP I did not examine the patient to limit the exposure to COVID. Objective-Cardiology Exam Last Set of Vital Signs Vital Signs 04/11/22 04/11/22 04/11/22 08:00 11:00 11:17 Temp 36.7 Pulse 95 Resp 11 B/P (MAP) 119/85 (96) Pulse Ox 96 O2 Delivery NIV Bilevel O2 Flow Rate 100.00 FiO2 90 I&O Intake and Output 04/11/22 00:00 Intake Total 1860 ml Output Total 1625 ml Balance 235 ml Intake Oral 110 ml IV Total 1750 ml Output Urine Total 1625 ml General: Cooperative, Other (responsive to voice) HEENT: Atraumatic Neck: Supple Lungs: Other (coarse breath sounds bilaterally) Heart: Other (distant heart sounds) Extremities: Other (trace R LE edema, chronic) Neuro: Normal Speech Psych/Mental Status: Mood NL, Other (patient appears fatigued. Patient does not open her eyes, patient nods her head "yes or no" to questions) Results Lab Laboratory Tests 04/11/22 04:00 A/P-Cardiology Admission Diagnosis Acute respiratory failure COVID-19 pneumonia Atrial fibrillation Coumadin toxicity Assessment/Plan Acute respiratory failure with diffuse pulmonary infiltrate on chest x-ray representing pneumonia Back on BiPAP COVID-19 pneumonia. Managed by primary care team Atrial fibrillation with rapid ventricular response. Patient was switched from Cardizem drip to oral Cardizem, currently she is in respiratory failure, unable to take pills and not following commands I will restart Cardizem drip and Lopressor IV, patient is tolerating it well. Continue to monitor [id number] score 5, patient will require oral anticoagulation as an outpatient She has been maintained on Coumadin as an outpatient. We will consider using Xarelto History of peripheral arterial disease, intolerant/allergy to Plavix. Maintained on Coumadin, currently having Coumadin toxicity Coumadin toxicity with INR 14, received 10 mg of vitamin K and [place] [facility] [place] INR on April 10, 2022 is 3.0 No signs of active bleeding, will continue monitoring and give FFP as needed I will restart Coumadin at low-dose, continue to monitor daily INR Hypertension, continue to monitor blood pressure Hyperlipidemia, intolerant to statin. COPD. LELE POND MD Apr 11, 2022 11:23
--- NOTE | 2022-04-11 13:03 | Progress Note ---
ELMA PEACOCK 04/11/22 1303: Subjective Date Seen by a Provider: Apr 11, 2022 Time Seen by a Provider: 10:00 Subjective/Events-last exam Ms. Felipe is a 77 year old female with a PMHx of HTN, arthritis, and PAD with Coumadin therapy who presents with acute on chronic respiratory failure with hyp oxia and is COVID positive. Patient remains on BiPap therapy. Patient is more alert this morning and is able to answer questions verbally or by nodding. Patient's is bedside and agrees that she is more alert today. Review of Systems Unable to obtain Objective Exam Last Set of Vital Signs Vital Signs Date Time Temp Pulse Resp B/P (MAP) Pulse Ox O2 Delivery O2 Flow Rate FiO2 04/11/22 12:31 88 04/11/22 12:00 20 124/65 (84) 96 NIV Bilevel 100.00 04/11/22 11:17 36.7 04/11/22 08:00 90 Capillary Refill : Less Than 3 Seconds I&O Intake and Output 04/11/22 00:00 Intake Total 1860 ml Output Total 1625 ml Balance 235 ml Intake Oral 110 ml IV Total 1750 ml Output Urine Total 1625 ml General: Alert, Cooperative Lungs: Other (coarse breath sounds bilaterally) Heart: Other (distant heart sounds) Abdomen: Normal Bowel Sounds, Soft, No Tenderness Results Lab Laboratory Tests 04/10/22 21:25: Blood Gas Puncture Site RIGHT RADIAL, Blood Gas Patient Temperature 36.6, Arterial Blood pH 7.38, Arterial Blood Partial Pressure CO2 41, Arterial Blood Partial Pressure O2 62L, Arterial Blood HCO3 24, Arterial Blood Total CO2 25.1, Arterial Blood Oxygen Saturation 91L, Arterial Blood Base Excess -0.6, Joshua Test YES-POS, Blood Gas Ventilator Setting NO, Blood Gas Inspired Oxygen 100% 04/11/22 03:40: Bedside Blood Gas pH (LAB) 7.419H, Bedside Blood Gas pCO2 (LAB) 37.9L, Bedside Blood Gas pO2 (LAB) 71L, Bedside Blood Gas HCO3 (LAB) 24.6, POC Blood Gas Total CO2 Calc 26, Bedside Bl Gas O2 Saturation (Calc) 94L, Bedside Arterial Blood Base Excess 0 04/11/22 04:00: White Blood Count 12.1H, Red Blood Count 2.70L, Hemoglobin 8.3L, Hematocrit 27L, Mean Corpuscular Volume 102H, Mean Corpuscular Hemoglobin 31, Mean Corpuscular Hemoglobin Concent 30L, Red Cell Distribution Width 15.6H, Platelet Count 329, Mean Platelet Volume 10.4, Immature Granulocyte % (Auto) 3, Neutrophils (%) (Auto) 88H, Lymphocytes (%) (Auto) 3L, Monocytes (%) (Auto) 5, Eosinophils (%) (Auto) 0, Basophils (%) (Auto) 0, Neutrophils # (Auto) 10.7H, Lymphocytes # (Auto) 0.4L, Monocytes # (Auto) 0.6, Eosinophils # (Auto) 0.0, Basophils # (Auto) 0.0, Immature Granulocyte # (Auto) 0.4H, Neutrophils % (Manual) 94, Lymphocytes % (Manual) 3, Monocytes % (Manual) 2, Band Neutrophils 1, Anisocytosis SLIGHT, Prothrombin Time 31.5H, INR Comment 3.0H, Sodium Level 147H , Potassium Level 4.3, Chloride Level 116H, Carbon Dioxide Level 22, Anion Gap 9, Blood Urea Nitrogen 73H, Creatinine 1.24, Estimat Glomerular Filtration Rate 45, BUN/Creatinine Ratio 59, Glucose Level 146H, Calcium Level 9.1, Corrected Calcium 10.1, Phosphorus Level 3.1, Magnesium Level 2.9H, Total Bilirubin 1.1H, Aspartate Amino Transf (AST/SGOT) 48H, Alanine Aminotransferase (ALT/SGPT) 54, Alkaline Phosphatase 53, Total Protein 5.1L, Albumin 2.7L Microbiology 04/05/22 MRSA Screen - Final, Complete MRSA not isolated Assessment/Plan Assessment/Plan Assess & Plan/Chief Complaint 1. Acute respiratory failure with hypoxia, Pneumonia, COVID + -BiPap therapy - BiPap 90% on 04/11 - monitor for signs of intolerance, ie hypoxia, tachypnea, somnolence -Albuterol breathing treatments - 4 puffs Q4H IH with RT -Decadron 6mg IV qd -Cefepime 1000mg - 50ml @ 100mls/hr Q6H IV for PNA -AM labs - CBC, BMP, INR -Hold PT while on BiPap 2. Atrial fibrillation vs. Heart failure -Continue telemetry and diltiazem therapy 125ml @ 5mls/hr Q24h IV; drip restarted on 04/10 due to intolerance of PO medication -Anti-coagulation for stroke prophylaxis. INR 3.0 on 04/10. Lovenox 120mg Q12H SC and warfarin 4mg PO at 1800 qd -Echocardiogram - CXR findings of enlarged cardiac silhouette, BNP of 454.3 -Appreciate plan per Cardiology 3. Protein nutrition deficiency -Protein dense diet as tolerated 4. Hyponatremia. Na of 136 on 04/09 - resolved -Monitor with AM BMP -Hypernatremia of 147 on 04/11 - continue to monitor 5. Pain management - myalgia/arthritis -Lortab 5mg Q6H PO PRN 6. HTN -Monitor BP -Resume home medications - Norvasc 5mg PO qd, triamterene/ HCTZ 75-50 tablet PO qd -Hydralazine 5mg Q4H PRN IV for SBP >180, DBP >120 7. Hyperkalemia - 4.3 on 04/11, resolved -Monitor with AM BMP 8. Hypermagnesemia - 2.9 on 04/11 -Monitor with AM Mg Clinical Quality Measures Admission Status Admission Dx 1. Acute respiratory failure with hypoxia, Pneumonia, COVID + -BiPap therapy - currently 50%. Continue and wean as tolerated -Albuterol breathing treatments - 4 puffs Q4H IH with RT -Decadron 6mg IV qd -Cefepime 1000mg - 50ml @ 100mls/hr Q6H IV for PNA -AM labs - CBC, BMP, INR 2. Atrial fibrillation vs. Heart failure -Continue telemetry and diltiazem therapy 125mg - 125ml @ 5mls/hr Q24h IV for rate control -Anti-coagulation for stroke prophylaxis - INR of 14.8. No anti-coagulation will be initiated at this time. Repeat INR this afternoon/evening. Patient is s/p Vitamin K 2.5mg therapy. Monitor Hbg with AM CBC/signs of bleeding -Echocardiogram - CXR findings of enlarged cardiac silhouette, BNP of 454.3 -Consult Cardiology 3. Protein nutrition deficiency with total protein of 5.8 on 04/05 -Protein dense diet as tolerated 4. Hyponatremia with Na of 132 on 04/05 -Monitor with AM BMP JENNIFER FRANCO MD 04/11/22 8264: Assessment/Plan Assessment/Plan Assess & Plan/Chief Complaint Patient maxed on BiPAP support. 20/10 and 100% FiO2. Despite this her mentation is significantly improved. I discussed again with her and my my concerns for her worsening and the potential need for intubation as she is on max BiPAP support at this time. They both express understanding but are hopeful to maintain off the ventilator if able. She is back on the cardizem gtt and HR improved. Will need to consider nutrition soon if she remains on BiPAP. INR stable and on Lovenox. Supervisory-Addendum Brief Verification & Attestation Participated in pt care: history, MDM, physical Personally performed: exam, history, MDM, supervision of care Care discussed with: Medical Student Procedures: n/a Results interpretation: Verified all documentation Verification and Attestation of Medical Student E/M Service A medical student performed and documented this service in my presence. I reviewed and verified all information documented by the medical student and made modifications to such information, when appropriate. I personally performed the physical exam and medical decision making. Jennifer Franco, Apr 11, 2022,21:01 ELMA PEACOCK Apr 11, 2022 13:03 JENNIFER FRANCO MD Apr 11, 2022 21:04
[2022-04-11 14:44] VITALS: BP 103/86
[2022-04-11 19:23] VITALS: BP 116/66
[2022-04-11] MEDS: fentaNYL INJ 100 MCG/2 ML AMP IVP PRN (19:42)
[2022-04-11] MEDS: DexMEDEtomidine 250 ML DRIP 250 ML IV SCH ×3 (19:46→22:46)
[2022-04-11] MEDS: warFARin 4 MG (COUMADIN) TAB PO SCH (22:06)
[2022-04-11 22:14] VITALS: BP 96/48
[2022-04-11] MEDS ORDERED: FUROSEMIDE 40 MG/4 ML INJ (LASIX) IVP ONE (22:30)
[2022-04-11] MEDS ORDERED: FUROSEMIDE 40 MG/4 ML INJ (LASIX) ONE (22:39)
[2022-04-12 00:49] LABS: BASOPHILS % (AUTO) 0 % (0-10); EOSINOPHILS % (AUTO) 0 % (0-10); HEMATOCRIT 27 % (35-52); HEMOGLOBIN 8.3 g/dL (11.5-16.0); LYMPHOCYTES # (AUTO) 0.4 10^3/uL (1.0-4.0); LYMPHOCYTES % (AUTO) 4 % (12-44); MEAN CORPUSCULAR HEMOGLOBIN 31 pg (25-34); MEAN CORPUSCULAR HGB CONC 31 g/dL (32-36); MEAN CORPUSCULAR VOLUME 101 fL (80-99); MEAN PLATELET VOLUME 11.2 fL (9.0-12.2); MONOCYTES # (AUTO) 0.4 10^3/uL (0.0-1.0); MONOCYTES % (AUTO) 3 % (0-12); NEUTROPHILS # (AUTO) 10.6 10^3/uL (1.8-7.8); NEUTROPHILS % (AUTO) 90 % (42-75); PLATELET COUNT 313 10^3/uL (130-400); WHITE BLOOD COUNT 11.8 10^3/uL (4.3-11.0)
[2022-04-12 01:03] LABS: INR 4.2 (0.8-1.4); PROTHROMBIN TIME PATIENT 40.6 SEC (12.2-14.7)
[2022-04-12] MEDS: meTOprolol 5 MG/5 ML (LOPRESSOR) VIAL IV SCH ×4 (01:19→20:45)
[2022-04-12 01:36] LABS: ALBUMIN 2.6 GM/DL (3.2-4.5); CALCIUM 8.8 MG/DL (8.5-10.1); CREATININE SERUM 1.66 MG/DL (0.60-1.30); MAGNESIUM 2.9 MG/DL (1.6-2.4); PHOSPHORUS 3.7 MG/DL (2.3-4.7); POTASSIUM 4.4 MMOL/L (3.6-5.0); TOTAL PROTEIN 5.1 GM/DL (6.4-8.2)
[2022-04-12] MEDS: POTASSIUM CL 10MEQ/50ML IVPB 50 ML IV SCH (01:49)
[2022-04-12] MEDS: KCL 20 MEQ TAB (K-DUR) PO SCH (01:50)
[2022-04-12] MEDS: MAGNESIUM 1 GM/100 ML IVPB 100 ML IV SCH (01:50)
[2022-04-12 02:50] VITALS: BP 105/72
[2022-04-12] MEDS: methylPREDNISolone 125 MG (Solu-MEDROL) VIAL IVP SCH ×3 (05:51→20:30)
[2022-04-12] MEDS: MULTIVIT W/MINERALS TAB (THERAGRAN M) PO SCH (06:34)
[2022-04-12 07:29] VITALS: BP 102/70
[2022-04-12] MEDS: RT-ALBUTEROL HFA 8.5 GM INHALER IH SCH ×5 (07:29→23:02)
[2022-04-12] MEDS: PANTOPRAZOLE 40 MG (PROTONIX) VIAL IV SCH (07:45)
--- NOTE | 2022-04-12 07:56 | Tele-ICU Progress Note ---
Subjective Date Seen by a Provider: Apr 12, 2022 Time Seen by a Provider: 07:51 Subjective/Events-last exam (Tele-ICU Physician , Progress note) Available chart/ vitals / labs / Images reviewed H&P is from ER notes Patient's information available about PMH, allergy reviewed in EMR. ROS as per chart and RN report Video assessment done using teleICU camera, rest of exam as per RN Discussed with RN. This patient admitted with acute hypoxic respiratory failure with underlying COVID19 pneumonia. Recently she was given prophylaxis with her Tamiflu and packs fluid. Apparently she has not been vaccinated for COVID19 pneumonia. Today she is on Vapotherm 35 L with 80%. Last night she was on BiPAP. Chest x- ray still showing bilateral infiltrate. Today her potassium increased to 5.2. She also has atrial fibrillation with rapid ventricular rate and currently she is on Cardizem 60 mg p.o. every 6 hours. She is still has RVR 130s-to 150s. she did respond to lopressor yesterday. 04/12/22 today she remained on bipap. hr controlled at 81/mt. Sodium increased to 150. Impression 1. Acute hypoxic respiratory failure secondary to COVID19 pneumonia. She is on dexamethasone 6 mg once a day and albuterol inhaler as needed. Will continue Bipap and wean FiO2 as tolerated. 2. Atrial fibrillation with rapid ventricular rate. She is on oral Cardizem and being followed by cardiology. HR controlled. 3. Anticoagulation. She is on a Coumadin for atrial fibrillation. inr 4.2 4. Hemoptysis resolved. 5. Hyperkalemia probably secondary to steroids and maxide. Hold maxide an continue to monitor K. today k is 4.4 6. TRAVIS with free water deficit. will start on D5w at 60 mls/hr. Plans in collaboration with bedside consultants and IM MDs. Discussed with the RUBBER SPLICER. Sepsis Event Evaluation Height, Weight, BMI Height: 5'8.00" Weight: 243lbs. 2.0oz. 110.427805uh; 39.92 BMI Method:Stated Exam Exam Patient acknowledged, consented, and participated in this virtual visit which was conducted using real time audio/video Vital Signs Date Time Temp Pulse Resp B/P (MAP) Pulse Ox O2 Delivery O2 Flow Rate FiO2 04/12/22 07:29 75 16 98 70.00 04/12/22 07:00 66 04/12/22 06:00 79 16 96/51 (66) 97 NIV Bilevel 100.00 04/12/22 05:00 63 19 101/60 (74) 96 NIV Bilevel 100.00 04/12/22 04:17 36.8 04/12/22 04:00 62 14 102/76 (85) 96 NIV Bilevel 100.00 04/12/22 04:00 95 NIV Bilevel 100 04/12/22 03:00 67 16 102/60 (74) 97 NIV Bilevel 100.00 04/12/22 02:50 71 23 96 75.00 04/12/22 02:00 84 17 102/67 (79) 97 NIV Bilevel 100.00 04/12/22 01:00 86 04/12/22 01:00 85 23 102/58 (73) 97 NIV Bilevel 100.00 04/12/22 00:00 36.9 04/12/22 00:00 63 27 100/69 (79) 98 NIV Bilevel 100.00 04/11/22 23:59 95 NIV Bilevel 100 04/11/22 23:00 81 26 107/61 (76) 97 NIV Bilevel 100.00 04/11/22 22:14 75 19 98 85.00 04/11/22 22:00 72 18 96/48 (64) 98 NIV Bilevel 100.00 04/11/22 21:32 68 04/11/22 21:00 75 18 105/77 (86) 100 NIV Bilevel 100.00 04/11/22 20:46 NIV Bilevel 100.00 04/11/22 20:00 82 21 125/78 (94) 99 NIV Bilevel 90.00 04/11/22 20:00 95 NIV Bilevel 100 04/11/22 19:46 36.3 04/11/22 19:42 96 151/80 04/11/22 19:23 99 27 96 100.00 04/11/22 19:00 93 25 115/65 (82) 94 NIV Bilevel 90.00 04/11/22 19:00 91 04/11/22 18:00 92 24 108/69 (82) 99 NIV Bilevel 90.00 04/11/22 17:00 92 25 118/83 (95) 100 NIV Bilevel 100.00 04/11/22 16:11 36.0 04/11/22 16:00 92 NIV Bilevel 100 04/11/22 16:00 98 31 108/78 (88) 100 NIV Bilevel 100.00 04/11/22 14:44 99 22 99 100.00 04/11/22 14:00 86 20 115/70 (85) 99 NIV Bilevel 100.00 04/11/22 13:00 101 26 132/93 (106) 99 NIV Bilevel 100.00 04/11/22 12:31 88 04/11/22 12:00 91 NIV Bilevel 100 04/11/22 12:00 97 20 124/65 (84) 96 NIV Bilevel 100.00 04/11/22 11:52 98 149/80 04/11/22 11:17 36.7 04/11/22 11:00 95 11 119/85 (96) 96 NIV Bilevel 100.00 04/11/22 10:21 89 29 96 100.00 04/11/22 10:00 101 20 142/76 (98) 92 NIV Bilevel 100.00 04/11/22 09:00 100 23 135/72 (93) 92 NIV Bilevel 100.00 04/11/22 08:00 97 22 138/77 (97) 94 NIV Bilevel 100.00 04/11/22 08:00 92 NIV Bilevel 100 04/11/22 08:00 36.0 l I & O 04/12/22 07:00 Intake Total 1370 ml Output Total 1085 ml Balance 285 ml Height & Weight Height: 5'8.00" Weight: 243lbs. 2.0oz. 110.598487hq; 39.92 BMI Method:Stated General Appearance: No Apparent Distress, Mild Distress Respiratory: No Accessory Muscle Use, Decreased Breath Sounds, Rhonci, Wheezing, Other Cardiovascular: Regular Rate, Rhythm, Other Capillary Refill: Less Than 3 Seconds Extremity: Other Neurologic/Psychiatric: Alert, Normal Mood/Affect Skin: Normal Color, Warm/Dry Other comments PE PER RN Results Lab Laboratory Tests 04/11/22 04:00 04/12/22 00:42 04/12/22 01:10 Assessment/Plan Assessment/Plan as above Critical Care: Critically Ill Patient Time spent with patient (mins): 25 NEHEMIAS BLUNT MD Apr 12, 2022 07:56
--- NOTE | 2022-04-12 08:43 | Diagnostic Imaging Report ---
EXAMINATION: Chest, 1 view. HISTORY: Pneumonia. COMPARISON: 04/10/2022. FINDINGS: The heart size and pulmonary vasculature are normal. There are diffuse interstitial opacities seen throughout both lungs. No significant pleural effusion or pneumothorax. Degenerative changes of the thoracic spine. Osseous structures are otherwise intact. IMPRESSION: Overall stable appearance of the diffuse interstitial opacities throughout both lungs compared to 04/10/2022. Dictated by: Dictated on workstation # [id number]
[2022-04-12] MEDS: FOLIC ACID 1 MG TAB PO SCH (09:26)
[2022-04-12] MEDS: LORATADINE (CLARITIN) 10 MG TAB PO SCH (09:26)
[2022-04-12] MEDS: D5W 1000 ML IV SOLUTION 1,000 ML IV SCH (09:34)
--- NOTE | 2022-04-12 10:40 | Physical Therapy Progress Note ---
Therapy Progress Note Patient declined PT on this date due to fatigue. PT attempted to educate patient on importance of OOB activity and/or exercises to improve current LOF, however, patient continued to decline PT. Patient remains on BiPap. 1 ref LYDIA SOSA PT Apr 12, 2022 10:40
[2022-04-12 11:15] VITALS: BP 118/96
[2022-04-12] MEDS: fentaNYL INJ 100 MCG/2 ML AMP IVP PRN ×3 (11:32→18:47)
[2022-04-12] MEDS: DexMEDEtomidine 250 ML DRIP 250 ML IV SCH (13:00)
--- NOTE | 2022-04-12 13:39 | Cardiology Progress Note ---
Subjective Date Seen by Provider: Apr 12, 2022 Time Seen by Provider: 13:38 Subjective/Events-last exam Patient was seen at bedside, she is still on BiPAP. Lethargic. Heart rate is controlled Review of Systems General: Other (Unable to provide review of system) Objective-Cardiology Exam Last Set of Vital Signs Vital Signs 04/12/22 04/12/22 04/12/22 04/12/22 08:00 11:55 12:00 13:00 Temp 36.0 Pulse 64 Resp 22 B/P (MAP) 132/83 Pulse Ox 93 O2 Delivery NIV Bilevel O2 Flow Rate 70.00 FiO2 70 I&O Intake and Output 04/12/22 00:00 Intake Total 1370 ml Output Total 900 ml Balance 470 ml Intake Oral 0 ml IV Total 1370 ml Output Urine Total 900 ml General: Alert, Cooperative HEENT: Atraumatic Neck: Supple Lungs: Other (coarse breath sounds bilaterally) Heart: Other (distant heart sounds) Abdomen: Normal Bowel Sounds, Soft, No Tenderness Extremities: Other (trace R LE edema, chronic) Neuro: Normal Speech Psych/Mental Status: Mood NL, Other (patient appears fatigued. Patient does not open her eyes, patient nods her head "yes or no" to questions) Results Lab Laboratory Tests 04/12/22 00:42 04/12/22 01:10 A/P-Cardiology Admission Diagnosis Acute respiratory failure COVID-19 pneumonia Atrial fibrillation Coumadin toxicity Assessment/Plan Acute respiratory failure with diffuse pulmonary infiltrate on chest x-ray representing pneumonia Back on BiPAP COVID-19 pneumonia. Managed by primary care team Atrial fibrillation with rapid ventricular response. Patient was switched from Cardizem drip to oral Cardizem, currently she is in respiratory failure, unable to take pills and not following commands I will restart Cardizem drip and Lopressor IV, patient is tolerating it well. Continue to monitor, no changes are recommended [id number] score 5, patient will require oral anticoagulation as an outpatient She has been maintained on Coumadin as an outpatient. We will consider using Xarelto History of peripheral arterial disease, intolerant/allergy to Plavix. Maintained on Coumadin, currently having Coumadin toxicity Coumadin toxicity with INR 14, received 10 mg of vitamin K and [place] [facility] [place] Received Coumadin 4 mg on April 10, 2022 and April 11, 2022. INR on April 12, 2022 is 4.3. Holding Coumadin again and monitor Hypertension, continue to monitor blood pressure Hyperlipidemia, intolerant to statin. COPD. LELE POND MD Apr 12, 2022 13:39
[2022-04-12 15:14] VITALS: BP 115/76
--- NOTE | 2022-04-12 16:48 | Progress Note - Hospitalist ---
Subjective HPI/CC On Admission Date Seen by Provider: Apr 12, 2022 Time Seen by Provider: 09:45 Subjective/Events-last exam She is sedated on BiPAP. Her is at the bedside and was updated. Objective Exam Vital Signs Vital Signs Date Time Temp Pulse Resp B/P (MAP) Pulse Ox O2 Delivery O2 Flow Rate FiO2 04/12/22 16:03 36.0 04/12/22 16:00 78 49 128/99 (109) 93 NIV Bilevel 70.00 04/12/22 12:00 70 Capillary Refill : Less Than 3 Seconds General Appearance: No Apparent Distress, Obese Respiratory: No Respiratory Distress, Decreased Breath Sounds, Other (wearing BiPAP) Cardiovascular: Regular Rate, Rhythm, No Murmur Gastrointestinal: Normal Bowel Sounds, Soft Extremity: Normal Inspection, No Pedal Edema Neurologic/Psychiatric: Other (sedated) Skin: Warm/Dry, Pallor Results/Procedures Lab Laboratory Tests 04/12/22 00:42 04/12/22 01:10 Patient resulted labs reviewed. Imaging: Reviewed Imaging Report Assessment/Plan Assessment and Plan Assess & Plan/Chief Complaint Acute respiratory failure with hypoxia Pneumonia due to COVID-19 Poor prognosis TeleICU following BiPAP Solumedrol TRAVIS Hypernatremia D5W AFib with RVR Supratherapeutic INR Cardizem Hold Coumadin INR 4.2 Cardiology following HTN Morbid obesity Critical Care Critically Ill Patient Diagnosis/Problems Diagnosis/Problems (1) Acute respiratory failure due to COVID-19 Status: Acute (2) Pneumonia due to COVID-19 virus Status: Acute (3) TRAVIS (acute kidney injury) Status: Acute (4) Hypernatremia Status: Acute (5) Poor prognosis Status: Acute YAMILET CORTES MD Apr 12, 2022 16:48
[2022-04-12 19:20] VITALS: BP 126/94
--- NOTE | 2022-04-12 22:10 | Tele-ICU Progress Note ---
Subjective Date Seen by a Provider: Apr 12, 2022 Time Seen by a Provider: 22:05 Subjective/Events-last exam called to look in on pt, She has been having increasing lethargy, increased spont RR up to 50, needing 90% FiO2 on BiPAP Pt can be aroused but falls back to sleep easily. At this point I would electively intubate pt. As clinical trajectory has been downhill last hew days. Pt so lethargic has not been able to eat for last few days will place on AC 20/ Vt 500 FiO2 100% for now and PEEP 8, will order IV Propofol and Fentanyl for sedation Sepsis Event Evaluation Height, Weight, BMI Height: 5'8.00" Weight: 243lbs. 2.0oz. 110.901309vg; 39.92 BMI Method:Stated Exam Exam Patient acknowledged, consented, and participated in this virtual visit which was conducted using real time audio/video Vital Signs Date Time Temp Pulse Resp B/P (MAP) Pulse Ox O2 Delivery O2 Flow Rate FiO2 04/12/22 20:40 35.6 78 48 113/75 (88) 98 NIV Bilevel 90.00 04/12/22 20:14 36.8 04/12/22 19:47 36.8 04/12/22 19:20 84 16 96 90.00 04/12/22 18:00 87 18 120/83 (95) 95 NIV Bilevel 70.00 04/12/22 17:00 87 29 116/75 (89) 98 NIV Bilevel 70.00 04/12/22 16:03 36.0 04/12/22 16:00 78 49 128/99 (109) 93 NIV Bilevel 70.00 04/12/22 16:00 97 NIV Bilevel 90 04/12/22 15:14 90 16 94 70.00 04/12/22 15:00 85 15 115/76 (89) 94 NIV Bilevel 70.00 04/12/22 14:00 76 15 128/88 (101) 94 NIV Bilevel 70.00 04/12/22 13:00 64 132/83 04/12/22 13:00 80 30 129/92 (104) 93 NIV Bilevel 70.00 04/12/22 12:15 75 04/12/22 12:00 92 NIV Bilevel 70 04/12/22 12:00 80 22 135/87 (103) 93 NIV Bilevel 70.00 04/12/22 11:55 36.0 04/12/22 11:15 94 16 94 70.00 04/12/22 11:00 77 38 127/86 (100) 97 NIV Bilevel 70.00 04/12/22 10:00 72 37 123/100 (108) 95 NIV Bilevel 70.00 04/12/22 09:00 86 30 142/80 (100) 90 NIV Bilevel 70.00 04/12/22 08:00 75 14 100/69 (79) 97 NIV Bilevel 70.00 04/12/22 08:00 92 NIV Bilevel 70 04/12/22 07:59 36.0 04/12/22 07:29 75 16 98 70.00 04/12/22 07:20 NIV Bilevel 70.00 04/12/22 07:00 66 20 97/67 (77) 97 NIV Bilevel 100.00 04/12/22 07:00 66 04/12/22 06:00 79 16 96/51 (66) 97 NIV Bilevel 100.00 04/12/22 05:00 63 19 101/60 (74) 96 NIV Bilevel 100.00 04/12/22 04:17 36.8 04/12/22 04:00 62 14 102/76 (85) 96 NIV Bilevel 100.00 04/12/22 04:00 95 NIV Bilevel 100 04/12/22 03:00 67 16 102/60 (74) 97 NIV Bilevel 100.00 04/12/22 02:50 71 23 96 75.00 04/12/22 02:00 84 17 102/67 (79) 97 NIV Bilevel 100.00 04/12/22 01:00 86 04/12/22 01:00 85 23 102/58 (73) 97 NIV Bilevel 100.00 04/12/22 00:00 36.9 04/12/22 00:00 63 27 100/69 (79) 98 NIV Bilevel 100.00 04/11/22 23:59 95 NIV Bilevel 100 04/11/22 23:00 81 26 107/61 (76) 97 NIV Bilevel 100.00 04/11/22 22:14 75 19 98 85.00 l I & O 04/12/22 07:00 Intake Total 1370 ml Output Total 1085 ml Balance 285 ml Height & Weight Height: 5'8.00" Weight: 243lbs. 2.0oz. 110.435320lh; 39.92 BMI Method:Stated General Appearance: No Apparent Distress, Obese Respiratory: No Respiratory Distress, Decreased Breath Sounds, Other (wearing BiPAP) Cardiovascular: Regular Rate, Rhythm, No Murmur Capillary Refill: Less Than 3 Seconds Extremity: Normal Inspection, No Pedal Edema Neurologic/Psychiatric: Other (sedated) Skin: Warm/Dry, Pallor Results Lab Laboratory Tests 04/11/22 04:00 04/12/22 00:42 04/12/22 01:10 Assessment/Plan Assessment/Plan Worsening hypoxic resp failure, at this point I would electively intubate, Family spoken to about possibility of intubation this am Critical Care: Ventilator Management Time spent with patient (mins): 35 TANISHA BECERRA MD Apr 12, 2022 22:09
[2022-04-12] MEDS ORDERED: PROPOFOL DRIP (ICU) 100 ML IV ONE (22:29)
[2022-04-12] MEDS ORDERED: NS IV 1000 ML 1,000 ML ONE (22:35)
--- NOTE | 2022-04-12 23:25 | Anesthesia-Procedure Note ---
Procedures/Interventions Procedure Start/Stop/Diagnosis Date of Procedure: Apr 12, 2022 Start Time: 22:40 Referring Physician: E-ICU Preprocedural Diagnosis: Covid positive Respiratory Failure Brief History Called by warehouse receiver to intubate ICU inpatient consulted by E-ICU for intubation and A-Line placement. consented for procedure via telephone to RN. Pt has had tachypnea and well as a decreased LOC. On arrival pt was on bi-pap with sats in the low 90's with RR in high 30's to low 40's. Pt opened her eyes and tried to speak, but I could not comprehend what she was saying. I advised pt what we were planning to do and why and she nodded her head. Pt was pre oxygenated with ambu bag 100%. 80mg of propofol was given with 100mg Anectice to optimize visualization with Gee. Pt had an extremely dry mouth with lots of dried mucous and blood distorting view of vocal cords. Once I identified cords, I was able to pass a #8.0 ETT x 1 attempt secured at 21cm at lip with b/l breath sounds and color change on EZ cap. Tube was secured by RT and placed on vent. Sats were slow to respond and dropped quickly to mid 60's a fter induction. Pt was placed on AC 20 100% with PEEP of 8 intitally with slow improvement to low 90's on vent. Rt radial A-Line was placed after intubation x1 attempt. Sterile technique maintained. Good blood return and waveform present on monitor. CXR pending and report to RN. Stop Time: 23:00 Postprocedural Diagnosis: Covid positive Respiratory Failure Arterial Line Arterial Line Catheter: 20G Type: Radial Location: Right Procedure: prepped, draped in sterile fashion, good wave-form was obtained, patient tolerated procedure well, no immediate complications, post procedure area cleaned, post procedure dressing applied KINDRA MCNEAL CRNA Apr 12, 2022 23:25
[2022-04-12 23:54] VITALS: BP 110/34
[2022-04-13] MEDS: RT-ALBUTEROL HFA 8.5 GM INHALER IH SCH ×2 (02:23→07:28)
[2022-04-13 02:24] VITALS: BP 111/40
[2022-04-13] MEDS: NS IV 500 ML 500 ML IV SCH ×2 (03:00→04:04)
[2022-04-13] MEDS: meTOprolol 5 MG/5 ML (LOPRESSOR) VIAL IV SCH ×2 (03:00→08:56)
[2022-04-13] MEDS ORDERED: NS IV 500 ML 500 ML IV ONE (03:30)
[2022-04-13] MEDS: DexMEDEtomidine 250 ML DRIP 250 ML IV SCH ×2 (03:36→11:09)
[2022-04-13] MEDS: D5W 1000 ML IV SOLUTION 1,000 ML IV SCH (03:36)
[2022-04-13 03:41] LABS: ABG BASE EXCESS -4.5 MMOL/L (-2.5-2.5); ABG OXYGEN SATURATION 100 % (94-100); ABG PCO2 39 MMHG (35-45); ABG PO2 144 MMHG (79-93); ABG TCO2 21.6 MMOL/L (21.0-31.0)
[2022-04-13 03:54] LABS: BASOPHILS % (AUTO) 0 % (0-10); EOSINOPHILS % (AUTO) 0 % (0-10); HEMATOCRIT 28 % (35-52); HEMOGLOBIN 8.5 g/dL (11.5-16.0); LYMPHOCYTES # (AUTO) 0.3 10^3/uL (1.0-4.0); LYMPHOCYTES % (AUTO) 2 % (12-44); MEAN CORPUSCULAR HEMOGLOBIN 31 pg (25-34); MEAN CORPUSCULAR HGB CONC 31 g/dL (32-36); MEAN CORPUSCULAR VOLUME 101 fL (80-99); MEAN PLATELET VOLUME 11.5 fL (9.0-12.2); MONOCYTES # (AUTO) 0.3 10^3/uL (0.0-1.0); MONOCYTES % (AUTO) 2 % (0-12); NEUTROPHILS % (AUTO) 95 % (42-75); PLATELET COUNT 243 10^3/uL (130-400); WHITE BLOOD COUNT 14.8 10^3/uL (4.3-11.0)
[2022-04-13 03:58] LABS: ALBUMIN 2.4 GM/DL (3.2-4.5); POTASSIUM 4.6 MMOL/L (3.6-5.0)
[2022-04-13 03:59] LABS: CALCIUM 8.6 MG/DL (8.5-10.1)
[2022-04-13 04:01] LABS: TOTAL PROTEIN 4.8 GM/DL (6.4-8.2)
[2022-04-13 04:04] LABS: CREATININE SERUM 1.88 MG/DL (0.60-1.30); PHOSPHORUS 4.4 MG/DL (2.3-4.7)
[2022-04-13 04:07] LABS: MAGNESIUM 3.1 MG/DL (1.6-2.4)
[2022-04-13 04:08] LABS: ABG PH 7.34 (7.37-7.43); ALLENS TEST YES-POS
[2022-04-13 04:09] LABS: INSPIRED O2 100%; PATIENT TEMP 36.6; VENTILATOR YES
--- NOTE | 2022-04-13 06:32 | Progress Note ---
Standard Progress Note Progress Notes/Assess & Plan Date Seen by a Provider: Apr 13, 2022 Time Seen by a Provider: 06:31 Progress/Assessment & Plan BP has been low SBP 70;s, 80's despite one liter of IVF, does not have central line but will start IV levo @ 5 thru best peripheral line TANISHA BECERRA MD Apr 13, 2022 06:32
[2022-04-13 06:45] LABS: INR 5.8 (0.8-1.4); PROTHROMBIN TIME PATIENT 51.9 SEC (12.2-14.7)
[2022-04-13] MEDS ORDERED: NOREPINEPHRINE 8 MG/250 ML 250 ML IV SCH (06:45)
--- NOTE | 2022-04-13 06:45 | Occ Therapy Progress Note ---
Therapy Progress Note OT received orders. Pt is currently intubated. OT to monitor pt's progress then will initiate treatment when pt is medically stable and able to actively participate in skilled therapy. JAVIER VALDIVIA Apr 13, 2022 06:45
[2022-04-13] MEDS: KCL 20 MEQ TAB (K-DUR) PO SCH (06:53)
[2022-04-13] MEDS: POTASSIUM CL 10MEQ/50ML IVPB 50 ML IV SCH (06:53)
[2022-04-13] MEDS: MAGNESIUM 1 GM/100 ML IVPB 100 ML IV SCH (06:53)
--- NOTE | 2022-04-13 07:06 | Diagnostic Imaging Report ---
EXAMINATION: Chest radiograph, portable AP view. DATE: 04/12/2022 11:54 PM INDICATION: 77-year-old female, COVID positive. Evaluation of support lines and tubes. COMPARISON: April 12, 2022. FINDINGS: There is a newly placed endotracheal tube which is approximately 8.1 cm above the kannan. The nasogastric tube extends to the distal margin of the included [id number]. There is extensive multifocal bilateral lung consolidation which is essentially unchanged. There is no identified pneumothorax. IMPRESSION: 1. Newly placed endotracheal tube and nasogastric tube without apparent complication. 2. Extensive multifocal bilateral lung consolidation which is essentially unchanged. Report was faxed to [facility] by isamar at 7:09am. Dictated by: Dictated on workstation # [id number]
[2022-04-13] MEDS ORDERED: dilTIAZem DRIP 125 MG/100 ML NS IV SCH ×2 (07:15)
[2022-04-13] MEDS: PROPOFOL DRIP (ICU) 100 ML IV SCH ×2 (07:24→13:06)
--- NOTE | 2022-04-13 07:27 | Physical Therapy Progress Note ---
Therapy Progress Note Patient currently sedated and intubated. PT will require new orders and will monitor patient status. PT will initiate treatment when patient is able to actively participate with skilled therapy. LYDIA SOSA PT Apr 13, 2022 07:27
[2022-04-13 07:28] VITALS: BP 135/56
--- NOTE | 2022-04-13 07:35 | Tele-ICU Progress Note ---
Subjective Date Seen by a Provider: Apr 13, 2022 Time Seen by a Provider: 12:05 Subjective/Events-last exam Subjective/Events-last exam (Tele-ICU Physician , Progress note) Available chart/ vitals / labs / Images reviewed H&P is from ER notes Patient's information available about PMH, allergy reviewed in EMR. ROS as per chart and RN report Video assessment done using teleICU camera, rest of exam as per RN Discussed with RN. This patient admitted with acute hypoxic respiratory failure with underlying COV ID19 pneumonia. Recently she was given prophylaxis with her Tamiflu and packs fluid. Apparently she has not been vaccinated for COVID19 pneumonia. Today she is on Vapotherm 35 L with 80%. Last night she was on BiPAP. Chest x- ray still showing bilateral infiltrate. Today her potassium increased to 5.2. She also has atrial fibrillation with rapid ventricular rate and currently she is on Cardizem 60 mg p.o. every 6 hours. She is still has RVR 130s-to 150s. she did respond to lopressor yesterday. 04/12/22 today she remained on bipap. hr controlled at 81/mt. Sodium increased to 150. 04/13/22. pt intubated this am due to worsening mental status and increased WOB. POST INTUBATION, CXR REVIEWED. ET OK. TIFFANI.. INCREASED INFILTRATES. NA IS STILL AT 150. needing levophed. Art line was inserted. Impression 1. Acute hypoxic respiratory failure secondary to COVID19 pneumonia got worse requiring intubation. She is on dexamethasone 6 mg once a day and albuterol inhaler as needed. Vent settings 500/20/90%/8 peak pressure 23. mean 13 2. Atrial fibrillation with rapid ventricular rate. being followed by cardiology. HR controlled. 3. Anticoagulation. She is on a Coumadin for atrial fibrillation. inr 5.8. will hold warfarin 4. Hemoptysis resolved. 5. Hyperkalemia probably secondary to steroids and maxide. Hold maxide an continue to monitor K. today k is 4.4 6. TRAVIS with free water deficit. will start on D5w at 60 mls/hr. Plans in collaboration with bedside consultants and IM MDs. Discussed with the CROOK OPERATOR. Sepsis Event Evaluation Height, Weight, BMI Height: 5'8.00" Weight: 243lbs. 2.0oz. 110.508744au; 39.92 BMI Method:Stated Exam Exam Patient acknowledged, consented, and participated in this virtual visit which was conducted using real time audio/video Vital Signs Date Time Temp Pulse Resp B/P (MAP) Pulse Ox O2 Delivery O2 Flow Rate FiO2 04/13/22 07:24 78 111/40 04/13/22 07:21 36.2 04/13/22 06:08 78 18 95 Mechanical Ventilator 100.00 04/13/22 06:00 80 19 96 Mechanical Ventilator 100.00 04/13/22 05:10 72 18 96 Mechanical Ventilator 100.00 04/13/22 05:00 72 18 96 Mechanical Ventilator 100.00 04/13/22 04:00 62 22 98 Mechanical Ventilator 100.00 04/13/22 04:00 96 Mechanical Ventilator 100 04/13/22 04:00 100 04/13/22 03:40 36.6 04/13/22 03:36 69 111/40 04/13/22 03:00 69 22 98 Mechanical Ventilator 100.00 04/13/22 02:24 87 24 96 100 04/13/22 02:00 81 22 99 Mechanical Ventilator 100.00 04/13/22 01:40 78 22 98 Mechanical Ventilator 100.00 04/13/22 01:34 36.0 Mechanical Ventilator 100.00 04/13/22 01:00 60 04/13/22 01:00 79 22 98 Mechanical Ventilator 100.00 04/13/22 00:10 94 22 96 Mechanical Ventilator 100.00 04/13/22 00:00 99 Mechanical Ventilator 100 04/13/22 00:00 100 04/12/22 23:55 Mechanical Ventilator 100.00 04/12/22 23:54 76 26 94 100 04/12/22 23:06 100 22 91 Mechanical Ventilator 100.00 04/12/22 23:01 94 22 Mechanical Ventilator 100.00 04/12/22 22:45 100 113/79 (90) 92 NIV Bilevel 90.00 04/12/22 22:00 84 24 113/75 (88) 94 NIV Bilevel 90.00 04/12/22 21:30 87 129/95 (106) NIV Bilevel 90.00 04/12/22 20:40 35.6 78 48 113/75 (88) 98 NIV Bilevel 90.00 04/12/22 20:14 36.8 04/12/22 20:00 78 101/63 (76) 97 NIV Bilevel 70.00 04/12/22 20:00 92 NIV Bilevel 90 04/12/22 19:47 36.8 04/12/22 19:20 84 16 96 90.00 04/12/22 19:00 53 35 115/81 (92) 96 NIV Bilevel 70.00 04/12/22 19:00 86 04/12/22 18:00 87 18 120/83 (95) 95 NIV Bilevel 70.00 04/12/22 17:00 87 29 116/75 (89) 98 NIV Bilevel 70.00 04/12/22 16:03 36.0 04/12/22 16:00 78 49 128/99 (109) 93 NIV Bilevel 70.00 04/12/22 16:00 97 NIV Bilevel 90 04/12/22 15:14 90 16 94 70.00 04/12/22 15:00 85 15 115/76 (89) 94 NIV Bilevel 70.00 04/12/22 14:00 76 15 128/88 (101) 94 NIV Bilevel 70.00 04/12/22 13:00 64 132/83 04/12/22 13:00 80 30 129/92 (104) 93 NIV Bilevel 70.00 04/12/22 12:15 75 04/12/22 12:00 92 NIV Bilevel 70 04/12/22 12:00 80 22 135/87 (103) 93 NIV Bilevel 70.00 04/12/22 11:55 36.0 04/12/22 11:15 94 16 94 70.00 04/12/22 11:00 77 38 127/86 (100) 97 NIV Bilevel 70.00 04/12/22 10:00 72 37 123/100 (108) 95 NIV Bilevel 70.00 04/12/22 09:00 86 30 142/80 (100) 90 NIV Bilevel 70.00 04/12/22 08:00 75 14 100/69 (79) 97 NIV Bilevel 70.00 04/12/22 08:00 92 NIV Bilevel 70 04/12/22 07:59 36.0 I & O 04/13/22 07:00 Intake Total 0 ml Output Total 815 ml Balance -815 ml Height & Weight Height: 5'8.00" Weight: 243lbs. 2.0oz. 110.389728mg; 39.92 BMI Method:Stated General Appearance: No Apparent Distress, Obese Respiratory: No Respiratory Distress, Decreased Breath Sounds, Other (wearing BiPAP) Cardiovascular: Regular Rate, Rhythm, No Murmur Capillary Refill: Less Than 3 Seconds Extremity: Normal Inspection, No Pedal Edema Neurologic/Psychiatric: Other (sedated) Skin: Warm/Dry, Pallor Results Lab Laboratory Tests 04/12/22 00:42 04/12/22 01:10 04/13/22 03:25 Assessment/Plan Assessment/Plan as above Critical Care: Ventilator Management Time spent with patient (mins): 37 NEHEMIAS BLUNT MD Apr 13, 2022 07:35
[2022-04-13] MEDS ORDERED: RT-ALBUTEROL/IPRATROPIUM 3 ML (DUONEB) VIAL INH PRN ×2 (08:30→13:30)
[2022-04-13] MEDS: methylPREDNISolone 125 MG (Solu-MEDROL) VIAL IVP SCH (08:40)
[2022-04-13] MEDS: PANTOPRAZOLE 40 MG (PROTONIX) VIAL IV SCH (08:40)
[2022-04-13] MEDS: LORATADINE (CLARITIN) 10 MG TAB PO SCH (08:41)
[2022-04-13] MEDS: MULTIVIT W/MINERALS TAB (THERAGRAN M) PO SCH (08:41)
[2022-04-13] MEDS: FOLIC ACID 1 MG TAB PO SCH (08:41)
--- NOTE | 2022-04-13 08:41 | Cardiology Progress Note ---
Subjective Date Seen by Provider: Apr 13, 2022 Time Seen by Provider: 08:39 Subjective/Events-last exam Patient was seen at bedside Ventilator dependent, deteriorated last night. Review of Systems General: Other (Unable to provide review of system) Objective-Cardiology Exam Last Set of Vital Signs Vital Signs 04/13/22 04/13/22 04/13/22 04/13/22 06:08 07:21 07:24 07:28 Temp 36.2 Pulse 109 Resp 25 B/P (MAP) 111/40 Pulse Ox 94 O2 Delivery Mechanical Ventilator O2 Flow Rate 100.00 FiO2 90 I&O Intake and Output 04/13/22 00:00 Intake Total 0 ml Output Total 1235 ml Balance -1235 ml Intake Oral 0 ml Output Urine Total 1235 ml General: Other (Sedated and intubated) HEENT: Atraumatic Lungs: Other (coarse breath sounds bilaterally) Heart: Other (distant heart sounds) Abdomen: Normal Bowel Sounds, Soft, No Tenderness Extremities: Other (trace R LE edema, chronic) Neuro: Other (Sedated and intubated) Psych/Mental Status: Other (Sedated and intubated) Results Lab Laboratory Tests 04/13/22 03:25 A/P-Cardiology Admission Diagnosis Acute respiratory failure COVID-19 pneumonia Atrial fibrillation Coumadin toxicity Assessment/Plan Acute respiratory failure with diffuse pulmonary infiltrate on chest x-ray representing pneumonia Deteriorated on April 13, 2022, patient was intubated. COVID-19 pneumonia. Managed by primary care team Atrial fibrillation with rapid ventricular response. Continue on Cardizem drip and IV Rope pressor and monitor tolerance and response Acute renal failure Hold Lasix. Use IV fluid and monitor tolerance and response [id number] score 5, patient will require oral anticoagulation as an outpatient She has been maintained on Coumadin as an outpatient. We will consider using Xarelto History of peripheral arterial disease, intolerant/allergy to Plavix. Maintained on Coumadin, currently having Coumadin toxicity Coumadin toxicity with INR 14, received 10 mg of vitamin K and [place] [facility] [place] Received Coumadin 4 mg on April 10, 2022 and April 11, 2022. INR on April 12, 2022 is 4.3. Holding Coumadin again and monitor Hypertension, continue to monitor blood pressure Hyperlipidemia, intolerant to statin. COPD. LELE POND MD Apr 13, 2022 08:41
--- NOTE | 2022-04-13 08:50 | Diagnostic Imaging Report ---
Indication: Pneumonia, follow-up Frontal chest obtained at 0541 a.m. compared to yesterday. ET tube and NG tube are unchanged. There is cardiomegaly. There is extensive bilateral infiltrate which appears similar to the prior study. There is no pneumothorax or gross pleural fluid. IMPRESSION: No change in extensive bilateral infiltrates and life support lines. No pneumothorax or gross pleural fluid. Dictated by: Dictated on workstation # [id number]
--- NOTE | 2022-04-13 08:54 | Progress Note - Hospitalist ---
MARY JANE LEAHY 04/13/22 0854: Subjective HPI/CC On Admission Date Seen by Provider: Apr 13, 2022 Time Seen by Provider: 09:10 Subjective/Events-last exam Ms. Felipe is a 77 year old female with a PMHx of HTN, arthritis, and PAD who presents with acute on chronic respiratory failure with hypoxia and is COVID positive. Pt had worsening mental status and started to deteriorate so pt was intubated this morning. Pt currently sedated and on ventilator, so interview was unable to be obtained. Objective Exam Vital Signs Vital Signs Date Time Temp Pulse Resp B/P (MAP) Pulse Ox O2 Delivery O2 Flow Rate FiO2 04/13/22 08:56 63 135/56 04/13/22 07:28 25 94 90 04/13/22 07:21 36.2 04/13/22 06:08 Mechanical Ventilator 100.00 Capillary Refill : Less Than 3 Seconds Respiratory: Lungs Clear, Normal Breath Sounds Cardiovascular: Regular Rate, Rhythm, No Murmur, Normal Peripheral Pulses Gastrointestinal: Soft Skin: Normal Color, Warm/Dry Results/Procedures Lab Laboratory Tests 04/13/22 03:25 Patient resulted labs reviewed. Imaging: Reviewed Imaging Report Assessment/Plan Assessment and Plan Assess & Plan/Chief Complaint Acute respiratory failure with hypoxia Pneumonia due to COVID-19 Consider begining abx Poor prognosis Ventilated TRAVIS Hypernatremia D5W AFib with RVR Supratherapeutic INR HTN Morbid obesity YAMILET CORTES MD 04/13/22 1220: Subjective HPI/CC On Admission Time Seen by Provider: 09:30 Subjective/Events-last exam We met with her and discussed goals of care. He elected to transition to DNR due to her multiorgan failure and poor prognosis. He would like to discuss possibly transitioning to comfort measures only with his daughter. Objective Exam General Appearance: No Apparent Distress, Obese, Other (intubated and sedated) Respiratory: Decreased Breath Sounds, Other (intubated and mechanically ventilated) Cardiovascular: Regular Rate, Rhythm, No Murmur Gastrointestinal: Normal Bowel Sounds, Soft Extremity: Normal Inspection, Pedal Edema Neurologic/Psychiatric: Other (sedated) Skin: Cool, Pallor Results/Procedures Imaging: Reviewed Imaging Report Assessment/Plan Assessment and Plan Assess & Plan/Chief Complaint Worsening respiratory failure now on the ventilator. Also now with shock on pressors. Also with anuric TRAVIS. Discussed goals of care with and he would like to make her DNR now. He would like to discuss the plan with his daughter and asked about possibly making her comfort measures only. We will await an update from him after he talks with his daughter. Her prognosis is poor. Critical Care: Critically Ill Patient Diagnosis/Problems Diagnosis/Problems (1) Multiorgan failure Status: Acute (2) Shock Status: Acute (3) Acute respiratory failure due to COVID-19 Status: Acute (4) Pneumonia due to COVID-19 virus Status: Acute (5) Anuria Status: Acute (6) TRAVIS (acute kidney injury) Status: Acute (7) Poor prognosis Status: Acute (8) Goals of care, counseling/discussion Status: Acute Supervisory-Addendum Brief Verification & Attestation Participated in pt care: history, MDM, physical Personally performed: exam, history, MDM, supervision of care Care discussed with: Medical Student Procedures: n/a Results interpretation: Verified all documentation A medical student performed and documented this service in my presence. I reviewed and verified all information documented by the medical student and made modifications to such information, when appropriate. I personally performed the physical exam and medical decision making. MARY JANE LEAHY Apr 13, 2022 08:54 YAMILET CORTES MD Apr 13, 2022 12:20
[2022-04-13] MEDS ORDERED: SUCCINYLCHOLINE INJ 20 MG/1 ML 10 ML VIAL INJ ONE (08:59)
[2022-04-13] MEDS ORDERED: proPOfol 200 MG/20 ML (DIPRIVAN) VIAL IV ONE (08:59)
[2022-04-13] MEDS ORDERED: RT-ALBUTEROL/IPRATROPIUM 3 ML (DUONEB) VIAL INH SCH (10:00)
--- NOTE | 2022-04-13 10:56 | Diagnostic Imaging Report ---
Indication: PICC line placement Frontal chest obtained at 10:48 a.m. compared to same day at 5:41 a.m. ET tube and NG tube are unchanged. There is a new left-sided PICC line tip overlying the SVC. There is no change in extensive bilateral infiltrates. Impression: Left-sided PICC line tip overlies low SVC. Stable ET tube and NG tube with unchanged bilateral infiltrates. Dictated by: Dictated on workstation # [id number]
[2022-04-13 11:08] LABS: ABG BASE EXCESS -5.7 MMOL/L (-2.5-2.5); ABG OXYGEN SATURATION 88 % (94-100); ABG PCO2 42 MMHG (35-45); ABG PO2 55 MMHG (79-93); ABG TCO2 21.2 MMOL/L (21.0-31.0)
[2022-04-13 11:12] LABS: INSPIRED O2 90%; PATIENT TEMP 36.2; VENTILATOR YES
[2022-04-13 11:13] LABS: ABG PH 7.29 (7.37-7.43)
[2022-04-13 11:14] VITALS: BP 135/56
[2022-04-13 13:06] VITALS: BP 135/56
[2022-04-13] MEDS ORDERED: PROMETHAZINE INJ 25 MG/ML (PHENERGAN) AMP IVP PRN (13:30)
[2022-04-13] MEDS ORDERED: ARTIFICAL TEARS 0.4 ML UNIT DOSE (REFRESH PLUS) OU PRN (13:30)
[2022-04-13] MEDS ORDERED: LORazepam 1 MG (ATIVAN) TAB SL PRN (13:30)
[2022-04-13] MEDS ORDERED: GLYCOPYRROLATE 0.2 MG/ML (ROBINUL) 2 ML VIAL IV PRN (13:30)
[2022-04-13] MEDS ORDERED: ACETAMINOPHEN 650 MG SUPP (TYLENOL) PR PRN (13:30)
[2022-04-13] MEDS ORDERED: SALIVA SUBSTITUTE 60 ML SPRAY(MOUTHKOTE) MM PRN (13:30)
[2022-04-13] MEDS ORDERED: morphine INJ 4 MG/ML 1 ML (VIAL/SYRINGE) IV PRN (13:30)
[2022-04-13] MEDS ORDERED: BISACODYL 10 MG SUPP (DULCOLAX) PR PRN (13:30)
[2022-04-13] MEDS ORDERED: ONDANSETRON 4 MG/2 ML (SDV) Z0FRAN IVP PRN (13:30)
[2022-04-13] MEDS ORDERED: fentaNYL INJ 100 MCG/2 ML AMP IVP PRN (14:15)
--- NOTE | 2022-04-13 17:55 | Discharge Summary ---
Discharge Summary Hospital Course Was the Problem List Reviewed?: Yes Problems/Dx: (1) Multiorgan failure Status: Acute (2) Shock Status: Acute (3) Acute respiratory failure due to COVID-19 Status: Acute (4) Pneumonia due to COVID-19 virus Status: Acute (5) Endotracheally intubated Status: Acute (6) Anuria Status: Acute (7) TRAVIS (acute kidney injury) Status: Acute (8) Atrial fibrillation with RVR Status: Acute (9) Poor prognosis Status: Acute (10) Goals of care, counseling/discussion Status: Acute Hospital Course Date of Admission: Apr 05, 2022 at 01:39 Admission Diagnosis : Acute respiratory failure due to COVID-19 Family Physician/Provider: Marquez Pantoja DO Date of Discharge: 04/13/22 Discharge Diagnosis: Acute respiratory failure due to COVID-19, shock, acute renal failure Hospital Course: Stacia Felipe was a 77 year old female with PMH HTN, HLD, PAD on coumadin, RA on chronic immunosuppression, obesity, who was admitted with acute respiratory failure due to COVID-19. She originally presented to [facility] in respiratory distress. She required BiPAP. She was treated with steroids and IV antibiotics. TeleICU was consulted and assisted with her care. Her course was complicated by AFib with RVR. She was treated with IV Cardizem. Her INR was supratherapeutic and she was given Vitamin K. Her respiratory status worsened and she was intubated and mechanically ventilated. She developed shock and required IV pressor support. She had worsening renal failure and became anuric. Due to her worsening status, her goals of care were discussed with her . After a discussion with his daughter, he elected to transition to comfort measures only. She was compassionately extubated and given comfort medications. She subsequently on 04/13/2022 at 1415. Labs and Pending Lab Test: Laboratory Tests 04/13/22 03:25: White Blood Count 14.8H, Red Blood Count 2.72L, Hemoglobin 8.5L, Hematocrit 28L, Mean Corpuscular Volume 101H, Mean Corpuscular Hemoglobin 31, Mean Corpuscular Hemoglobin Concent 31L, Red Cell Distribution Width 15.8H, Platelet Count 243, Mean Platelet Volume 11.5, Immature Granulocyte % (Auto) 1, Neutrophils (%) (Auto) 95H, Lymphocytes (%) (Auto) 2L, Monocytes (%) (Auto) 2, Eosinophils (%) (Auto) 0, Basophils (%) (Auto) 0, Neutrophils # (Auto) 14.0H, Lymphocytes # (Auto) 0.3L, Monocytes # (Auto) 0.3, Eosinophils # (Auto) 0.0, Basophils # (Auto) 0.0, Immature Granulocyte # (Auto) 0.2H, Sodium Level 150H, Potassium Level 4.6, Chloride Level 120H, Carbon Dioxide Level 16L, Anion Gap 14, Blood Urea Nitrogen 113*H, Creatinine 1.88H, Estimat Glomerular Filtration Rate 27, BUN/Creatinine Ratio 60, Glucose Level 221H, Calcium Level 8.6, Corrected Calcium 9.9, Phosphorus Level 4.4, Magnesium Level 3.1H, Total Bilirubin 1.0, Aspartate Amino Transf (AST/SGOT) 39H, Alanine Aminotransferase (ALT/SGPT) 45, Alkaline Phosphatase 57, Total Protein 4.8L, Albumin 2.4L 04/13/22 03:35: Blood Gas Puncture Site ARTLINE, Blood Gas Patient Temperature 36.6, Arterial Blood pH 7.34*L, Arterial Blood Partial Pressure CO2 39, Arterial Blood Partial Pressure O2 144H, Arterial Blood HCO3 20L, Arterial Blood Total CO2 21.6, Arterial Blood Oxygen Saturation 100, Arterial Blood Base Excess -4.5L, Joshua Test YES-POS, Blood Gas Ventilator Setting YES, Blood Gas Inspired Oxygen 100% 04/13/22 06:08: Prothrombin Time 51.9*H, INR Comment 5.8*H 04/13/22 11:04: Blood Gas Puncture Site R RAD, Blood Gas Patient Temperature 36.2, Arterial Blood pH 7.29*L, Arterial Blood Partial Pressure CO2 42, Arterial Blood Partial Pressure O2 55L, Arterial Blood HCO3 20L, Arterial Blood Total CO2 21.2, Arterial Blood Oxygen Saturation 88L, Arterial Blood Base Excess -5.7L, Joshua Test UNK, Blood Gas Ventilator Setting YES, Blood Gas Inspired Oxygen 90% 04/13/22 11:25: Glucometer 172H Microbiology 04/13/22 Gram Stain - Final, Resulted 04/13/22 Sputum Culture, Resulted Pending Home Meds Active Reported Hydrocodone-Acetamin 7.5-325 (Hydrocodone/Acetaminophen) 7.5 Mg-325 Mg Tablet 1 Ea PO Q4H PRN Methotrexate (Methotrexate Sodium) 2.5 Mg Tablet 10 Mg PO SAT TAKES 4 (2.5MG) TABS Allopurinol 100 Mg Tablet 200 Mg PO DAILY TAKES 2 (100MG) TABS Furosemide 20 Mg Tablet 20 Mg PO DAILY Warfarin Sodium 5 Mg Tablet 10 Mg PO MO,TU,WE,TH,FR @HS TAKES 2 (5MG) TABS Warfarin Sodium 5 Mg Tablet 5 Mg PO SUN,SAT @HS Molnupiravir (Eua) (Molnupiravir) 200 Mg Capsule 4 Ea PO Q12H FILLED 03-31-2022 #40/5 DAY SUPPLY Albuterol Sulfate 0.63 Mg/3 Ml Vial.neb 3 Ml NEB Q6H PRN Oseltamivir Phosphate 75 Mg Capsule 75 Mg PO BID FILLED 03-31-2022 #10/5 DAY SUPPLY Dexamethasone 6 Mg Tablet 6 Mg PO DAILY FILLED 03-31-2022 #5/5 DAY SUPPLY Vitamin D2 (Ergocalciferol (Vitamin D2)) 1,250 Mcg (94077 Unit) Capsule 1,250 Mcg PO SAT Loratadine 10 Mg Tablet 10 Mg PO DAILY Glucosamine & Chondroitin Cap (Glucosa Moses 2Kcl/Chondroitin Moses) 500 Mg-400 Mg Capsule 1 Each PO DAILY Fish Oil 1,000 mg Softgel (Addison-3/Dha/Epa/Fish Oil) 1,000 Mg (120 Mg-180 Mg) Capsule 1,000 Mg PO BID Aspirin EC (Aspirin) 81 Mg Tablet.dr 81 Mg PO HS Amlodipine Besylate 5 Mg Tablet 5 Mg PO HS Hydroxychloroquine Sulfate 200 Mg Tablet 200 Mg PO BID Folic Acid 1 Mg Tablet 1 Mg PO DAILY Assessment/Pt Instructions Patient Consultations TeleICU, Cardiology Discharge Physical Examination Vital Signs Vital Signs Date Time Temp Pulse Resp B/P (MAP) Pulse Ox O2 Delivery O2 Flow Rate FiO2 04/13/22 13:06 87 135/56 04/13/22 12:00 96 Mechanical Ventilator 95 04/13/22 12:00 13 95.00 04/13/22 11:51 36.2 Allergies: Coded Allergies: Penicillins (Verified Allergy, Unknown, 03/23/13) [id number] Reductase Inhibitor (Verified Allergy, Unknown, 03/23/13) JOINT PAIN clopidogrel bisulfate (Verified Allergy, Unknown, 03/23/13) codeine (Verified Allergy, Unknown, 6/5/12) monosodium glutamate (Unverified Allergy, Unknown, 01/15/15) FROM UNCODED ALLERGIES diazepam (Unverified Adverse Reaction, Intermediate, DELIRIUM, 04/13/22) morphine (Verified Adverse Reaction, Mild, N/V, 04/13/22) Copy Copies To 1: MARQUEZ PANTOJA DO Discharge Summary Date of Admission Apr 05, 2022 at 01:39 Date of Discharge Apr 13, 2022 at 16:00 Discharge Date: Apr 13, 2022 Discharge Time: 14:15 Admission Diagnosis Acute respiratory failure due to COVID-19 Consults/Procedures Consulations TeleICU, Cardiology Comfort Measures/ End of Life Care: Comfort Measures Advance Care discuss with: family member (s) Plan: initiate discussion, clarifying prognosis, identified end-of-life goals, developed treatment plan Time spent on discussion (min): 30 Cardiopulmonary Arrest: Cardiorespiratory Arrest Date of : Apr 13, 2022 Time of : 14:15 Discharge Diagnosis Acute respiratory failure due to COVID-19 (1) Multiorgan failure Status: Acute (2) Shock Status: Acute (3) Acute respiratory failure due to COVID-19 Status: Acute (4) Pneumonia due to COVID-19 virus Status: Acute (5) Endotracheally intubated Status: Acute (6) Anuria Status: Acute (7) TRAVIS (acute kidney injury) Status: Acute (8) Atrial fibrillation with RVR Status: Acute (9) Poor prognosis Status: Acute (10) Goals of care, counseling/discussion Status: Acute YAMILET CORTES MD Apr 13, 2022 17:37
== END 2022-04-13 16:00 | disposition expired | DRG 208 ==
LOC: ICU 01:39
PROVIDERS: ADMIT Internal Medicine; ATTEND Internal Medicine
PROC: 5A0945A Assistance with Respiratory Ventilation, 24-96 Consecutive Hours, High Flow/Velocity Cannula (ICD-10-PCS; 2022-04-05)
PROC: 5A09457 Assistance with Respiratory Ventilation, 24-96 Consecutive Hours, Continuous Positive Airway Pressure (ICD-10-PCS; 2022-04-09)
PROC: 5A1935Z Respiratory Ventilation, Less than 24 Consecutive Hours (ICD-10-PCS; principal; 2022-04-12)
PROC: 0BH17EZ Insertion of Endotracheal Airway into Trachea, Via Natural or Artificial Opening (ICD-10-PCS; 2022-04-12)
DX: U07.1 COVID-19 (principal); J96.21 Acute and chronic respiratory failure with hypoxia; J12.82 Pneumonia due to coronavirus disease 2019; J15.9 Unspecified bacterial pneumonia; N17.9 Acute kidney failure, unspecified; R57.9 Shock, unspecified; E87.1 Hypo-osmolality and hyponatremia; E87.0 Hyperosmolality and hypernatremia; Z66 Do not resuscitate; Z51.5 Encounter for palliative care; E46 Unspecified protein-calorie malnutrition; J44.0 Chronic obstructive pulmonary disease with (acute) lower respiratory infection; R04.2 Hemoptysis; Z68.39 Body mass index [BMI] 39.0-39.9, adult; E66.01 Morbid (severe) obesity due to excess calories; M79.7 Fibromyalgia; I73.9 Peripheral vascular disease, unspecified; I10 Essential (primary) hypertension; M19.91 Primary osteoarthritis, unspecified site; E78.00 Pure hypercholesterolemia, unspecified; M81.0 Age-related osteoporosis without current pathological fracture; T45.515A Adverse effect of anticoagulants, initial encounter; I48.91 Unspecified atrial fibrillation; R31.9 Hematuria, unspecified; M54.9 Dorsalgia, unspecified; E87.5 Hyperkalemia; T38.0X5A Adverse effect of glucocorticoids and synthetic analogues, initial encounter; M06.9 Rheumatoid arthritis, unspecified; Z79.82 Long term (current) use of aspirin; Z79.52 Long term (current) use of systemic steroids; Z88.5 Allergy status to narcotic agent; Z88.0 Allergy status to penicillin; Z73.0 Burn-out
CPT/HCPCS: 36415; 36569; 36600; 71045; 76937; 80053; 82805; 82947; 83735; 83880; 84100; 84478; 85007; 85025; 85027; 85610; 87070; 87081; 87205; 94002; 94003; 94640; 94660; 94664; 94799